=== PATIENT | female | born 1985 | race Caucasian/White ===

== ENCOUNTER → 2017-07-26 | Outpatient (CLI) | payer OTHER ==
[2017-07-26 10:08] LABS: Basophils % (A) 1 %; Eosinophils # (A) 0.1 k/uL (0-0.7); Eosinophils % (A) 2 %; HCT 44.5 % (34.0-46.0); HGB 14.8 gm/dL (11.4-16.0); Lymphocytes # (A) 1.8 k/uL (1.0-4.8); Lymphocytes % (A) 38 %; MCHC 33.3 g/dL (31.0-37.0); MCV 90.1 fL (80.0-100.0); Mean Platelet Volume 7.2; Monocytes # (A) 0.4 k/uL (0-1.0); Monocytes % (A) 9 %; Neutrophils # (A) 2.2 k/uL (1.3-7.7); Neutrophils % (A) 47 %; Platelet Count 174 k/uL (150-450); RBC 4.94 m/uL (3.80-5.40); RDW 12.8 % (11.5-15.5); WBC 4.7 k/uL (3.8-10.6)
[2017-07-26 10:19] LABS: Potassium 4.6 mmol/L (3.5-5.1)
== END | disposition home or self-care (01) ==
LOC: LABWHC1 09:40
PROVIDERS: ATTEND Orthopaedic Surgery
DX: Z01.812 Encounter for preprocedural laboratory examination (principal); M23.92 Unspecified internal derangement of left knee
CPT/HCPCS: 36415; 80051; 85025

== ENCOUNTER 2017-08-05 10:35 | Day surgery (SDC) | payer BC, OTHER ==
[2017-08-03 10:45] VITALS: BMI 46.5
--- NOTE | 2017-08-04 16:52 | HP ---
HISTORY AND PHYSICAL REASON FOR ADMISSION: Surgery scheduled for 08/05/17 HISTORY OF PRESENT ILLNESS: Maria C Waggoner is a 32-year-old patient seen with progressive left knee pain. Treatment options were discussed. She elected to proceed with arthroscopy. Consent was obtained. PAST MEDICAL HISTORY: Factor V Leiden. PAST SURGICAL HISTORY: Appendectomy, section, IVC filter placement and removal. MEDICATIONS ARE: Xarelto. SOCIAL HISTORY: She denies current tobacco use. PHYSICAL EXAMINATION: Evaluation of left knee range of motion 0-125 degrees. There is a mild effusion. Tenderness medial joint line. Positive medial Rachel's. Ligaments stable. Hip rotation without pain. Distal neurovascular exam intact. Left knee radiographs reveal mild osteoarthritis, left knee. MRI failed to reveal any obvious osseous or soft tissue abnormality. IMPRESSION: 1. Internal derangement of left knee with medial meniscal tear. 2. History of factor V Leiden. PLAN: Left knee arthroscopy with partial meniscectomy and debridement. Surgery is scheduled for 08/05/2017. MMODL / IJN: [id number] /
[~2017-08-05 10:35] MED LIST: DEXAMETHASONE SOD PHOSPHATE 10 MG/ML 1 ML VIAL IV ONE; LACTATED RINGERS 1,000 ML IV SCH; LIDOCAINE 1% 20 ML VIAL (10MG/ML) FOR IV START INTRADERMA PRN; MIDAZOLAM 2 MG/2 ML VIAL IV PRN; ONDANSETRON 4 MG/2 ML VIAL IVP ONE; SCOPOLAMINE 1.5MG/72HR PATCH TRANSDERM ONE; ceFAZolin IN SWFI 2 GM/20 ML SYRINGE IVP ONE
[2017-08-05 10:55] VITALS: RESP 16
[2017-08-05] MEDS ORDERED: MIDAZOLAM 2 MG/2 ML VIAL ONE (11:20)
[2017-08-05] MEDS ORDERED: SUCCINYLCHOLINE CHLORIDE VIAL 200 MG/10 ML VIAL IV ONE (11:20)
[2017-08-05] MEDS ORDERED: LIDOCAINE 1% INJ 10MG/ML (20 ML MDV) ONE (11:20)
[2017-08-05] MEDS ORDERED: fentaNYL (PF) 50 MCG/ML 2 ML AMP ONE (11:20)
[2017-08-05] MEDS ORDERED: PROPOFOL 10 MG/ML 20 ML VIAL IV ONE (11:20)
[2017-08-05] MEDS ORDERED: BUPIVACAINE (PF) 0.25% 30 ML VIAL SQ ONE (11:43)
--- NOTE | 2017-08-05 12:19 | P.OP ---
Date of Procedure: 08/05/17 Preoperative Diagnosis: Internal derangement left knee Postoperative Diagnosis: 1. Tear medial meniscus left knee 2. Grade 1 chondromalacia medial femoral condyle left knee 3. Medial plica left knee 4. Reactive synovitis medial and suprapatellar compartments left knee Procedure(s) Performed: 1. Arthroscopic partial medial meniscectomy left knee 2. Arthroscopic chondroplasty medial femoral condyle left knee 3. Arthroscopic resection medial plica left knee 4. Arthroscopic partial synovectomy medial and suprapatellar compartments left knee Anesthesia: JYOTIA, local Surgeon: Trevor Flor Estimated Blood Loss (ml): 5 Pathology: none sent Condition: stable Disposition: PACU Indications for Procedure: 32-year-old patient seen with progressive left knee pain. After treatment options were discussed, she elected to proceed with arthroscopy. Operative Findings: See description of procedure Description of Procedure: Patient was taken to the operative suite. Patient underwent a general anesthetic by the department of anesthesia. Patient was given preoperative antibiotics. The left lower extremity was placed in a well-padded arthroscopic leg fall. The left leg was prepped and draped in the normal sterile orthopedic fashion. A lateral parapatellar and suprapatellar incision was made. Trochars were inserted. Arthroscopy was initiated. Suprapatellar pouch revealed diffuse thick reactive synovitis. The patellofemoral joint appeared to articulate congruently. There was no significant chondromalacia identified. The scope was guided into the medial gutter. There was a plica which impinged along the medial femoral condyle with range of motion. No loose bodies. The scope was then guided into the medial compartment. A medial parapatellar incision was made. Trocar inserted followed by probe. There was a radial tear involving the posterior horn medial meniscus. There was an area of grade 1 chondromalacia along the anterior aspect medial femoral condyle was a small osteochondral tears present. There was reactive synovitis anteriorly. I performed a partial medial meniscectomy down to stable tissue. A chondroplasty of the medial femoral condyle was performed on a stable tissue followed by partial synovectomy. The residual meniscus and osteochondral surface were stable. Scope and probe were then guided into the intercondylar notch. Cruciates were identified, probed and found to be stable. The scope and probe were then guided into lateral compartment. Lateral meniscus appeared intact with no evidence for meniscal tear. There was no chondromalacia or osteochondral issues into lateral compartment. There was no reactive synovitis or loose bodies present. The scope was in guided back into the suprapatellar compartment. I introduced a motorized shaver into the super patellar compartment. I guided that into the medial gutter and resected that medial plica. I performed a partial synovectomy. Shaver was removed. The knee was taken through full range of motion with complete resection of plica noted. There was good decompression reactive synovitis. I took one more look on the entire knee - no residual debris. Instruments were now removed from the joint. The joint was infiltrated with .25% Marcaine. Steri-Strips were applied to the portal sites. Sterile dressings were applied. The patient was placed into a MANUELITO hose. No tourniquet was utilized. The patient was awakened, transferred to a bed and taken to recovery stable satisfactory condition.
[2017-08-05] MEDS ORDERED: MEPERIDINE 50 MG/ML SYRINGE IVP ONE ×2 (12:20→12:41)
[2017-08-05 12:34] VITALS: TEMP 98
[2017-08-05] MEDS: MORPHINE SULFATE 2 MG/ML SYRINGE IV PRN ×4 (12:45→13:00)
[2017-08-05] MEDS ORDERED: LACTATED RINGERS 1,000 ML IV ONE ×2 (12:52)
[2017-08-05] MEDS ORDERED: KETOROLAC 30 MG/ML 1 ML VIAL IVP ONE (13:07)
[2017-08-05] MEDS ORDERED: HYDROcodone/APAP 5-325MG 1 EACH TAB PO ONE (13:45)
[2017-08-05 15:17] VITALS: BP 96/58; PULSE 64
== END 2017-08-05 15:40 | disposition home or self-care (01) ==
LOC: OR 10:35
PROVIDERS: ATTEND Orthopaedic Surgery
DX: M23.322 Other meniscus derangements, posterior horn of medial meniscus, left knee (principal); M94.262 Chondromalacia, left knee; M67.52 Plica syndrome, left knee; M65.862 Other synovitis and tenosynovitis, left lower leg; D68.51 Activated protein C resistance; E66.01 Morbid (severe) obesity due to excess calories; Z68.42 Body mass index [BMI] 45.0-49.9, adult; Z79.01 Long term (current) use of anticoagulants
CPT/HCPCS: 81025; 29881; J2250; J0330; J1100; J2175; J2405; J2001; J3010; J1885; J2270; J2704; J0690

== ENCOUNTER → 2018-07-15 | Outpatient (CLI) | payer BC ==
[2018-07-15 11:09] LABS: HCT 42.6 % (34.0-46.0); HGB 14.4 gm/dL (11.4-16.0); MCH 30.2 pg (25.0-35.0); MCHC 33.9 g/dL (31.0-37.0); MCV 89.2 fL (80.0-100.0); Platelet Count 162 k/uL (150-450); RBC 4.77 m/uL (3.80-5.40); RDW 13.1 % (11.5-15.5); WBC 4.5 k/uL (3.8-10.6)
[2018-07-15 11:39] LABS: INR 0.9 (<1.2); Partial Thromboplastin Time 23.4 sec (22.0-30.0); Prothrombin Time 10.2 sec (9.0-12.0)
[2018-07-15 18:18] LABS: Iron Saturation 35.37 (12.00-45.00); Vitamin D 25 Hydroxy 12.7 ng/mL (30.0-100.0)
[2018-07-15 19:21] LABS: Parathyroid Hormone Intact 87.3 pg/mL (14.0-72.0)
[2018-07-15 19:42] LABS: Albumin/Globulin Ratio 1.67 (1.60-3.17); Anion Gap 7.2 mmol/L (4.00-12.00); Calcium 9.1 mg/dL (8.7-10.3); Carbon Dioxide 27.8 mmol/L (21.6-31.8); Globulin 2.4 g/dL (1.6-3.3); LDL Cholesterol,Calculated 107.8 mg/dL (0.0-131.0); Magnesium 1.9 mg/dL (1.5-2.4); Phosphorus 3.1 mg/dL (2.4-5.1); Total Bilirubin 0.9 mg/dL (0.3-1.2); Total Protein 6.4 g/dL (6.2-8.2); VLDL Calculation 38.2 mg/dL (5.00-40.00)
[2018-07-15 22:55] LABS: Hemoglobin A1C 5.1 % (4.0-6.0)
[2018-07-19 06:26] LABS: Vit B1(Thiamine) 55 ug/L (38-122)
[2018-07-19 08:28] LABS: Zinc, Serum 82 ug/dL (60-130)
[2018-07-19 09:45] LABS: Vitamin A 35 ug/dL (38-106)
[2018-07-19 23:17] LABS: Selenium 136 mcg/L (63-160)
== END | disposition home or self-care (01) ==
LOC: LABWHC1 09:29
PROVIDERS: ATTEND Surgery Plastic and Reconstructive Surgery
DX: E21.1 Secondary hyperparathyroidism, not elsewhere classified (principal); E66.01 Morbid (severe) obesity due to excess calories; D50.9 Iron deficiency anemia, unspecified; E44.0 Moderate protein-calorie malnutrition; E55.9 Vitamin D deficiency, unspecified; K74.1 Hepatic sclerosis; N19 Unspecified kidney failure; K50.90 Crohn's disease, unspecified, without complications
CPT/HCPCS: 36415; 80053; 80061; 82306; 82525; 82607; 82728; 82746; 83036; 83540; 83550; 83735; 83970; 84100; 84134; 84255; 84425; 84443; 84590; 84630; 85027; 85610; 85730; 93005

== ENCOUNTER → 2018-09-08 | Outpatient (CLI) | payer BC ==
--- NOTE | 2018-09-08 09:00 | P.HPBAR ---
Bariatric H&P - History & Physicial H&P Date: 09/08/18 History & Physicial: Visit/CC: Patient initial contact: Initial weight: Initial weight in pounds: Height: Initial BMI: Last weight: Current weight: Current weight in pounds: Current BMI: [place] body weight (based on NIH guidelines): Excess body weight loss: The patient is a 33 year-old F who presents for Bariatric Assessment. HPI: She reports 3 blood clots following her and prolonged bedrest. She reports superficial thrombophlebitis at least twice. She also reports a DVT blood clot. She has an IVF filter that is now removed. She is on Xarelto. Family history of gallbladder disease. She had a knee surgery that went very well less than 2 years ago. She has heartburn and has elevated liver enzymes. She has factor V leiden and is on Xarelto. ABDOMEN: No upper abdominal scars ASSESSMENT: 1. Morbid obesity 2. Gallbladder disorder 3. Fatty liver PLAN: 1. Labs completed. 2. Will need US of the gallbladder for possible cholecystectomy 3. Psych clearance 4. Vitamin D, A are low. Supplement started 5. PTH also elevated. Start calcium 6. EKG 7. Need Service Engineer follow up for Factor V leiden Past Medical History Past Medical History: Deep Vein Thrombosis (DVT) Additional Past Medical History / Comment(s): Factor 5 disorder History of Any Multi-Drug Resistant Organisms: None Reported Past Surgical History: Appendectomy, Section, Tubal Ligation Additional Past Surgical History / Comment(s): section x 2. [place] teeth removed. Past Anesthesia/Blood Transfusion Reactions: No Reported Reaction Smoking Status: Former smoker - Past Family History Mother Family Medical History: Diabetes Mellitus, Thyroid Disorder Bariatric Checklist Checklist: Plan: Checklist: EGD: 1. Hiatal hernia: 2. H. Pylori: HgbA1c: Vitamin D: Smoking: Former smoker Primary care physician referral: Psychiatry clearance: Cardiology clearance: Sleep study: Diet journal: VTE risk score: VTE risk level: Rehab needs at discharge:
[2018-09-08 09:01] VITALS: BP 123/62; PULSE 59; TEMP 97.2; BMI 49.1
== END | disposition home or self-care (01) ==
LOC: BARWHC3 08:37
PROVIDERS: ATTEND Surgery Plastic and Reconstructive Surgery
DX: E66.01 Morbid (severe) obesity due to excess calories (principal); K82.9 Disease of gallbladder, unspecified; K76.0 Fatty (change of) liver, not elsewhere classified; I82.409 Acute embolism and thrombosis of unspecified deep veins of unspecified lower extremity; D68.2 Hereditary deficiency of other clotting factors; R12 Heartburn; R79.89 Other specified abnormal findings of blood chemistry; Z79.01 Long term (current) use of anticoagulants; Z90.89 Acquired absence of other organs; Z98.890 Other specified postprocedural states; Z87.891 Personal history of nicotine dependence; Z83.79 Family history of other diseases of the digestive system; Z68.42 Body mass index [BMI] 45.0-49.9, adult
CPT/HCPCS: 99211

== ENCOUNTER → 2018-09-26 | Outpatient (CLI) | payer BC ==
--- NOTE | 2018-09-26 13:42 | US ---
EXAMINATION TYPE: US gallbladder DATE OF EXAM: 09/26/2018 COMPARISON: 01/06/2016 CLINICAL HISTORY: 33-year-old female R94.5 Abnormal liver function test. Abnormal labs. No pain. Pa tient states having a hx of fatty liver. TECHNIQUE: Multiple sonographic images of the right upper quadrant were obtained. FINDINGS: EXAM MEASUREMENTS: Liver Length: 15.1 cm Gallbladder Wall: 0.2 cm CBD: 6.4 mm CHD: 5.5 mm Right Kidney: 10.6 x 5.3 x 6.1 cm Suboptimal visualization due to patient body habitus Pancreas: wnl Liver: Appears coarse in echotexture. Gallbladder: wnl Evidence for sonographic Matute's sign: neg CBD: upper limits of normal in size CHD: upper limits of normal in size Right Kidney: wnl IMPRESSION: 1. Coarsened appearance to the liver suggests underlying nonspecific hepatocellular disease. 2. Bile duct borderline dilated measuring up to 6.4 mm. Correlate with alkaline phosphatase and bilir ubin levels.
== END | disposition home or self-care (01) ==
LOC: RADUSWWP 10:46
PROVIDERS: ATTEND Surgery Plastic and Reconstructive Surgery
DX: K83.8 Other specified diseases of biliary tract (principal); R94.5 Abnormal results of liver function studies
CPT/HCPCS: 76705

== ENCOUNTER → 2018-10-17 | Outpatient (CLI) | payer BC ==
[2018-10-17 13:58] VITALS: BMI 50.1
== END | disposition home or self-care (01) ==
LOC: BARWHC3 08:32
PROVIDERS: ATTEND Surgery Plastic and Reconstructive Surgery
DX: E66.01 Morbid (severe) obesity due to excess calories (principal); Z68.43 Body mass index [BMI] 50.0-59.9, adult
CPT/HCPCS: 97804

== ENCOUNTER 2018-11-07 09:58 | Day surgery (SDC) | payer BC ==
[2018-11-03 10:19] VITALS: BMI 50.2
--- NOTE | 2018-11-06 18:21 | P.GSHP ---
History of Present Illness H&P Date: 11/07/18 CHIEF COMPLAINT: GERD HISTORY OF PRESENT ILLNESS: The patient is a 33-year-old female who presents reports gastroesophageal reflux disease. Upper endoscopy was offered for further evaluation and management. PAST MEDICAL HISTORY: Please see list. PAST SURGICAL HISTORY: Please see list. MEDICATIONS: Please see list. ALLERGIES: Please see list. SOCIAL HISTORY: No illicit drug use FAMILY HISTORY: No reports of Crohn disease or ulcerative colitis. REVIEW OF ORGAN SYSTEMS: CONSTITUTIONAL: No reports of fevers or chills. GI: Denies any blood in stools or constipation. PHYSICAL EXAM: VITAL SIGNS: Stable GENERAL: Well-developed and pleasant in no acute distress. HEENT: No scleral icterus. Extraocular movements grossly intact. Moist buccal mucosa. NECK: Supple without lymphadenopathy. CHEST: Unlabored respirations. Equal bilateral excursions. CARDIOVASCULAR: Regular rate and rhythm. Distal 2+ pulses. ABDOMEN: Soft, nondistended. MUSCULOSKELETAL: No clubbing, cyanosis, or edema. ASSESSMENT: 1. Gastroesophageal reflux disease PLAN: 1. Recommend proceeding with an upper endoscopy Past Medical History Past Medical History: Deep Vein Thrombosis (DVT) Additional Past Medical History / Comment(s): Factor 5 disorder, Hx of blood clots in legs and arms., fatty liver, back pain, takes spironolactone for facial hair growth., pre-cancerous uterine cells? History of Any Multi-Drug Resistant Organisms: None Reported Past Surgical History: Appendectomy, Section, Tubal Ligation Additional Past Surgical History / Comment(s): section x 2. [place] teeth , insertion of a filter behind her knee for blood clots and then removed., states procedure to remove clots afterwards through her neck. Past Anesthesia/Blood Transfusion Reactions: No Reported Reaction, Family History of Problems w/ Anesthesia Additional Past Anesthesia/Blood Transfusion Reaction / Comment(s): mother=ponv Past Psychological History: Anxiety, Depression Additional Psychological History / Comment(s): states no meds. Smoking Status: Former smoker Past Alcohol Use History: Occasional Additional Past Alcohol Use History / Comment(s): smoking history during teenage years Past Drug Use History: None Reported - Past Family History Mother Family Medical History: Diabetes Mellitus, Thyroid Disorder Additional Family Medical History / Comment(s): factor 5 Medications and Allergies Home Medications Medication Instructions Recorded Confirmed Type Rivaroxaban [Xarelto] 20 mg PO DAILY 08/03/17 11/03/18 History Spironolactone [Aldactone] 25 mg PO DAILY 09/08/18 11/03/18 History Vitamin A Acetate [Vitamin A] 20,000 unit PO DAILY 09/08/18 11/03/18 History Ergocalciferol [Vitamin D2] 50,000 unit PO Q7D 10/17/18 11/03/18 History Allergies Allergy/AdvReac Type Severity Reaction Status Date / Time No Known Allergies Allergy Verified 11/03/18 09:54
[~2018-11-07 09:58] MED LIST changes: -DEXAMETHASONE SOD PHOSPHATE 10 MG/ML 1 ML VIAL IV ONE; -LIDOCAINE 1% 20 ML VIAL (10MG/ML) FOR IV START INTRADERMA PRN; -MIDAZOLAM 2 MG/2 ML VIAL IV PRN; -ONDANSETRON 4 MG/2 ML VIAL IVP ONE; -SCOPOLAMINE 1.5MG/72HR PATCH TRANSDERM ONE; -ceFAZolin IN SWFI 2 GM/20 ML SYRINGE IVP ONE
[2018-11-07 10:25] VITALS: TEMP 98.6
[2018-11-07] MEDS ORDERED: LIDOCAINE 1% INJ 10MG/ML (20 ML MDV) ONE (11:15)
[2018-11-07] MEDS ORDERED: MIDAZOLAM 2 MG/2 ML VIAL ONE (11:15)
[2018-11-07] MEDS ORDERED: KETAMINE 10 MG/ML 20 ML VIAL ONE (11:15)
[2018-11-07] MEDS ORDERED: PROPOFOL 10 MG/ML 20 ML VIAL IV ONE (11:15)
--- NOTE | 2018-11-07 11:36 | P.PCN ---
Date of Procedure: 11/07/18 Description of Procedure: PREOPERATIVE DIAGNOSIS: Gastroesophageal reflux disease. Morbid obesity. POSTOPERATIVE DIAGNOSIS: Morbid obesity. Gastritis. Gastroesophageal reflux disease. Diaphragmatic hiatal hernia OPERATION: Esophagogastroduodenoscopy with biopsies along antrum. SURGEON: Zeinab Myers MD ANESTHESIA: MAC. INDICATIONS: The patient is a 33-year-old female who presents with a history of reflux disease. Benefits and risks of the procedure were described. Informed consent was obtained. DESCRIPTION: The patient was brought into the endoscopy suite and laid in the left lateral decubitus position. An Olympus gastroscope was passed along the posterior oropharynx down to the distal esophagus where the squamocolumnar junction was encountered at 36 cm from the incisors. The stomach was entered and no bile reflux was found. Additional findings are listed below. Biopsies with cold f orceps were obtained of the antrum. The first through third portion of the duodenum was examined and unremarkable. Retroflexion of the scope confirmed Hill grade 4 lower esophageal valve. The squamocolumnar junction demonstrated LA grade C erosive esophagitis. The stomach was desufflated. The patient tolerated the procedure well. FINDINGS: Squamocolumnar junction 36 cm from the incisors. Diaphragmatic hiatus at 40 cm. Hiatal hernia, 4 cm Hill grade 4 lower esophageal valve. LA grade C erosive esophagitis. No active duodenitis. Chronic gastritis RECOMMENDATIONS: Upper endoscopy as needed. Plan - Discharge Summary New Discharge Prescriptions: No Action Rivaroxaban [Xarelto] 20 mg PO DAILY Spironolactone [Aldactone] 25 mg PO DAILY Vitamin A Acetate [Vitamin A] 20,000 unit PO DAILY Ergocalciferol [Vitamin D2] 50,000 unit PO Q7D Discharge Medication List Rivaroxaban [Xarelto] 20 mg PO DAILY 08/03/17 [History] Spironolactone [Aldactone] 25 mg PO DAILY 09/08/18 [History] Vitamin A Acetate [Vitamin A] 20,000 unit PO DAILY 09/08/18 [History] Ergocalciferol [Vitamin D2] 50,000 unit PO Q7D 10/17/18 [History] Follow up Appointment(s)/Referral(s): [facility] [[facility]-STAFF] - 12/07/18 Patient Instructions/Handouts: Hiatal Hernia (DC), Gastroesophageal Reflux Disease (DC) Discharge Disposition: HOME SELF-CARE
[2018-11-07 11:41] VITALS: RESP 16
[2018-11-07 11:44] VITALS: BP 98/67; PULSE 74
== END 2018-11-07 11:53 | disposition home or self-care (01) ==
LOC: ORWHC2ENDO 09:58
PROVIDERS: ATTEND Surgery Plastic and Reconstructive Surgery
DX: K21.0 Gastro-esophageal reflux disease with esophagitis (principal); K29.50 Unspecified chronic gastritis without bleeding; K44.9 Diaphragmatic hernia without obstruction or gangrene; E66.01 Morbid (severe) obesity due to excess calories; Z68.43 Body mass index [BMI] 50.0-59.9, adult; D68.51 Activated protein C resistance; K76.0 Fatty (change of) liver, not elsewhere classified; M54.9 Dorsalgia, unspecified; Z87.891 Personal history of nicotine dependence; Z86.718 Personal history of other venous thrombosis and embolism; Z86.711 Personal history of pulmonary embolism; Z79.01 Long term (current) use of anticoagulants; Z79.899 Other long term (current) drug therapy; Z98.51 Tubal ligation status; Z83.3 Family history of diabetes mellitus; Z83.49 Family history of other endocrine, nutritional and metabolic diseases
CPT/HCPCS: 43239; 81025; 88305; J2250; J2001; J2704

== ENCOUNTER 2018-11-14 05:29 | Emergency (ER) | payer BC ==
[2018-11-14 05:35] VITALS: BP 99/77; PULSE 73; RESP 20; TEMP 97.9
--- NOTE | 2018-11-14 05:38 | ED ---
ENT HPI - General Chief complaint: ENT Stated complaint: Lt Ear/Jaw Pain Source: patient Mode of arrival: ambulatory Limitations: no limitations - History of Present Illness Initial comments: Maria C is a 33 yo female who presents to the ER for evaluation of sudden onset of stabbing pain in her left ear. Patient reports she woke with pain in her ear, she initially thought she had slept wrong so she tried to roll over but pain persisted so she came to the ER for evaluation. She denies fevers/chills or hearing loss. She denies history of ear infection in the past. MD complaint: ear pain -: hour(s) Location: L ear Severity: severe Severity scale (1-10): 10 Quality: sharp Consistency: constant Improves with: none Worsens with: position - Related Data Home Medications Medication Instructions Recorded Confirmed Rivaroxaban [Xarelto] 20 mg PO DAILY 08/03/17 11/07/18 Spironolactone [Aldactone] 25 mg PO DAILY 09/08/18 11/03/18 Omeprazole 20 mg PO 11/14/18 11/14/18 Previous Rx's Medication Instructions Recorded Amoxicillin 875 mg PO Q12HR #14 tablet 11/14/18 Allergies Allergy/AdvReac Type Severity Reaction Status Date / Time No Known Allergies Allergy Verified 11/07/18 10:26 Review of Systems ROS Statement: Those systems with pertinent positive or pertinent negative responses have been documented in the HPI. ROS Other: All systems not noted in ROS Statement are negative. Past Medical History Past Medical History: Deep Vein Thrombosis (DVT) Additional Past Medical History / Comment(s): Factor 5 disorder History of Any Multi-Drug Resistant Organisms: None Reported Past Surgical History: Appendectomy, Section, Tubal Ligation Additional Past Surgical History / Comment(s): section x 2. [place] teeth removed. Past Anesthesia/Blood Transfusion Reactions: No Reported Reaction Past Psychological History: No Psychological Hx Reported Smoking Status: Former smoker Past Alcohol Use History: Occasional Past Drug Use History: None Reported - Past Family History Mother Family Medical History: Diabetes Mellitus, Thyroid Disorder General Exam Limitations: no limitations General appearance: alert, in no apparent distress Head exam: Present: atraumatic, normocephalic Eye exam: Present: PERRL ENT exam: Present: normal oropharynx Expanded TM/Canal exam: Erythema: Left TM, Bulging: Left TM, Effusion: Left TM Respiratory exam: Absent: respiratory distress Cardiovascular Exam: Present: regular rate GI/Abdominal exam: Absent: distended Rectal exam: Present: deferred Extremities exam: Present: full ROM Neurological exam: Present: alert, oriented X3 Psychiatric exam: Present: normal affect Skin exam: Present: warm, dry Course Vital Signs 11/14/18 11/14/18 05:32 07:12 Temperature 97.9 F 97.9 F Pulse Rate 73 73 Respiratory 20 20 Rate Blood Pressure 99/77 99/77 O2 Sat by Pulse 99 99 Oximetry Medical Decision Making - Medical Decision Making Patient was seen and evaluated, history and physical exam consistent with acute left otits media Amoxicillin prescription given Supportive care discussed, patient discharged home in stable condition. Disposition Clinical Impression: Otitis media Disposition: HOME SELF-CARE Condition: Stable Instructions (If sedation given, give patient instructions): Ear Infection (ED) Prescriptions: Amoxicillin 875 mg PO Q12HR #14 tablet Is patient prescribed a controlled substance at d/c from ED?: No Referrals: nAay Del Real MD [Primary Care Provider] - 1-2 days
[2018-11-14] MEDS ORDERED: AMOXICILLIN 875 MG TAB PO STA (06:21)
== END 2018-11-14 07:12 | disposition home or self-care (01) ==
LOC: EC 05:29
DX: H66.92 Otitis media, unspecified, left ear (principal); Z86.718 Personal history of other venous thrombosis and embolism; Z87.891 Personal history of nicotine dependence; Z79.01 Long term (current) use of anticoagulants; Z79.899 Other long term (current) drug therapy
CPT/HCPCS: 99283

== ENCOUNTER → 2018-12-07 | Outpatient (CLI) | payer BC ==
[2018-12-07 14:37] VITALS: BP 109/91; PULSE 91; TEMP 98.2; BMI 49.2
--- NOTE | 2018-12-07 15:31 | P.PN ---
Subjective Progress Note Date: 12/07/18 DATE OF SERVICE: 12/07/2018 CHIEF COMPLAINT: Morbid obesity HISTORY OF PRESENT ILLNESS: Maria C Waggoner is a 33-year-old female who comes with lifelong morbid obesity. She comes in looking into the sleeve gastrectomy. She has heartburn and has elevated liver enzymes. She has factor V leiden and is on Xarelto. She has a family history of morbid obesity. She has tried caloric restriction with minimal weight loss. She reports resolution of reflux with omeprazole following her upper endoscopy. She denies any fatty food intolerance. At height of 5 feet 5 inches, her ideal body weight is 149 pounds. She comes in 295 pounds from 294 pounds, 3 months ago. She has gained 1 pound in 3 months. Her body mass index is 49.3. She is 146 pounds overweight. PAST MEDICAL HISTORY: 1. Morbid obesity due to excess calories 2. Body mass index of 49.1, initial 3. Osteoarthritis of the knees. 4. Osteoarthritis of the lower back. 5. Factor V Leiden 6. Gastroesophageal reflux disease 7. DVT extremity 8. Hypertensive heart disease 9. Vitamin D deficiency PAST SURGICAL HISTORY: 1. Appendectomy 2. section 3. Tubal ligation HOME MEDICATIONS: ALLERGIES: Medications and Allergies Home Medications Medication Instructions Recorded Confirmed Type Rivaroxaban [Xarelto] 20 mg PO DAILY 08/03/17 10/17/18 History Spironolactone [Aldactone] 25 mg PO DAILY 09/08/18 10/17/18 History Vitamin A Acetate [Vitamin A] 20,000 unit PO DAILY 09/08/18 10/17/18 History Ergocalciferol [Vitamin D2] 50,000 unit PO Q7D 10/17/18 10/17/18 History Allergies Allergy/AdvReac Type Severity Reaction Status Date / Time No Known Allergies Allergy Verified 10/17/18 10:54 SOCIAL HISTORY: Past tobacco use. FAMILY HISTORY: No family history of ulcerative colitis disease or Crohn's disease. Family history of morbid obesity. No lupus in the family. No reports of stomach or esophageal cancer. REVIEW OF ORGAN SYSTEMS: CONSTITUTIONAL: At height of 5 feet 5 inches, her ideal body weight is 149 pounds. She comes in 294 pounds. Her body mass index is 49.1. She is 145 pounds overweight. HEENT: Denies any active troubles with vision or hearing. ENDOCRINE: No diabetes. No hypothyroidism. CARDIOVASCULAR: No past reports of palpitations or heart attacks or chest pain. Past blood clots. RESPIRATORY: No asthma. No sleep apnea. GASTROINTESTINAL: Denies any bright red blood per rectum. No diarrhea. No constipation. Has GERD. MUSCULOSKELETAL: Has lower back pain and joint pain. Has osteoarthritis of the knees. NEURO: No headaches. No seizure disorders. PSYCH: No depression. No suicidal ideation. RHEUMATOLOGIC: No lupus. No rheumatoid arthritis. HEMATOLOGIC: Denies any abnormal bleeding or bruising. Personal history of DVTs. On anticoagulant. SKIN: No rash. No skin cancer. PHYSICAL EXAM: VITAL SIGNS: Height 5 foot 5 inches, weight 295 pounds. BMI 49.3 Vital Signs Temp 98.2 F 12/07/18 14:33 Pulse 91 12/07/18 14:33 Resp BP 109/91 12/07/18 14:33 Pulse Ox GENERAL: Well-developed in no acute distress. HEENT: No scleral icterus. Extraocular movements grossly intact. Hears conversational speech. No nasal drainage. NECK: Supple without lymphadenopathy. CHEST: Nonlabored respirations with equal bilateral excursions. CARDIOVASCULAR: Regular rate and regular rhythm. Distal 2+ pulses. ABDOMEN: Obese, soft, nontender, nondistended. No upper abdominal scars MUSCULOSKELETAL: No clubbing, cyanosis. Gross strength 5/5 distal lower extremities. NEURO: No focal or lateralizing signs. Cranial nerves 2 through 12 grossly within normal limits. PSYCH: Appropriate affect. Alert and oriented to person, place and time. SKIN: Good skin turgor. Well perfused. STUDIES US of the gallbladder imaging independently reviewed demonstrating no large gallstones. Report of ultrasound confirms possible fatty liver disease MEDICAL REPORT: EGD FINDINGS: Squamocolumnar junction 36 cm from the incisors. Diaphragmatic hiatus at 40 cm. Hiatal hernia, 4 cm Hill grade 4 lower esophageal valve. LA grade C erosive esophagitis. No active duodenitis. Chronic gastritis Final Pathologic Diagnosis GASTRIC ANTRUM, BIOPSY: Essentially normal gastric mucosa. Helicobacter organisms are not identified on H+E stained sections. LABS: LFTs elevated. Vitamin A is low. Triglycerides is high. Vitamin D is low. PTH is elevated EKG: Sinus bradycarida ASSESSMENT: 1. Morbid obesity due to excess calories 2. Body mass index of 49.3 3. Osteoarthritis of the knees. 4. Osteoarthritis of the lower back. 5. Factor V Leiden 6. Gastroesophageal reflux disease 7. DVT extremity 8. Hypertensive heart disease 9. Vitamin D deficiency 10. Gallbladder disorder 11. Fatty liver disease 12. Hiatal hernia 13. Erosive esophagitis 14. Elevated liver enzymes 15. Secondary hyperparathyroidism 16. Vitamin D deficiency 17. Vitamin A deficiency PLAN: 1. Recommend additional studies for elevated liver enzymes and potential fatty liver disease. 2. Continue with omeprazole for gastroesophageal reflux disease. With her pre sent condition, sleeve gastrectomy may put her increased risk for worsening symptoms she demonstrated understanding. 3. Vitamin D supplement 10,000 units daily or 50,000 units weekly 4. Vitamin A supplement at least 8000 units daily 5. Recommend calcium supplement 1200 mg daily 6. Additional prescription omeprazole prescribed. Objective - Vital Signs Vital signs: Vital Signs Temp 98.2 F 12/07/18 14:33 Pulse 91 12/07/18 14:33 Resp BP 109/91 12/07/18 14:33 Pulse Ox Intake & Output 12/06/18 12/07/18 12/07/18 18:59 06:59 18:59 Weight 134.263 kg
== END | disposition home or self-care (01) ==
LOC: BARWHC3 13:52
PROVIDERS: ATTEND Surgery Plastic and Reconstructive Surgery
DX: E66.01 Morbid (severe) obesity due to excess calories (principal); M17.0 Bilateral primary osteoarthritis of knee; M47.9 Spondylosis, unspecified; D68.51 Activated protein C resistance; K21.9 Gastro-esophageal reflux disease without esophagitis; I82.409 Acute embolism and thrombosis of unspecified deep veins of unspecified lower extremity; I11.9 Hypertensive heart disease without heart failure; E55.9 Vitamin D deficiency, unspecified; K82.9 Disease of gallbladder, unspecified; K76.0 Fatty (change of) liver, not elsewhere classified; K44.9 Diaphragmatic hernia without obstruction or gangrene; K22.10 Ulcer of esophagus without bleeding; R74.8 Abnormal levels of other serum enzymes; E21.1 Secondary hyperparathyroidism, not elsewhere classified; E50.9 Vitamin A deficiency, unspecified; Z68.42 Body mass index [BMI] 45.0-49.9, adult; Z90.49 Acquired absence of other specified parts of digestive tract; Z79.01 Long term (current) use of anticoagulants; Z79.899 Other long term (current) drug therapy; Z87.891 Personal history of nicotine dependence; Z98.51 Tubal ligation status
CPT/HCPCS: 99211

== ENCOUNTER → 2018-12-26 | Outpatient (CLI) | payer BC ==
--- NOTE | 2018-12-26 13:24 | CT ---
EXAMINATION TYPE: CT abdomen pelvis w con DATE OF EXAM: 12/26/2018 COMPARISON: NONE HISTORY: 33 year old female Diverticulitis, right lower rib pain TECHNIQUE: Contiguous axial scanning of the abdomen and pelvis following administration of 100 ml Iso cruz 300 IV contrast. Delayed images through the kidneys and coronal/sagittal reconstructions perform ed. CT DLP: 4092.0 mGycm Automated exposure control for dose reduction was used. FINDINGS: Heart normal size without pericardial effusion. Lung bases clear without pleural effusion. Low attenuation the hepatic parenchyma without focal lesion. Portal venous system is patent. No bilia ry ductal dilatation. Gallbladder, adrenal glands, right kidney, and pancreas appear within normal limits. Subcentimeter hypodensity lateral cortex left kidney too small for accurate CT characterization, like ly tiny cysts. Spleen mildly enlarged at 15.9 cm on axial series. Borderline sized 1.4 cm portacaval lymph node. No other mesenteric or retroperitoneal lymphadenopathy seen. Oral contrast progressed to the upper descending colon. Scattered minimal stool. No pericolonic infla mmatory change. No dilated small bowel, free fluid, or free air. Retroaortic left renal vein. Bladder urine distended. Uterus is visualized with both ovaries. There is a 3.1 cm dominant follicle or functional cyst in the left ovary and 3.7 cm and the right ovary. No abnormal fluid collection in the pelvis or pelvic lymphadenopathy. Bones: Degenerative disc disease L5-S1. No osseous destructive process. IMPRESSION: 1. CORRELATE FOR HEPATIC STEATOSIS. 2. MILD SPLENOMEGALY (15.9 CM). 3. PHYSIOLOGIC CHANGES IN THE OVARIES WITH A DOMINANT FOLLICLE OR FUNCTIONAL CYST MEASURING UP TO 3.7 CM.
== END | disposition home or self-care (01) ==
LOC: RADCTMAIN 09:35
PROVIDERS: ATTEND Surgery Plastic and Reconstructive Surgery
DX: R16.1 Splenomegaly, not elsewhere classified (principal)
CPT/HCPCS: 74177; Q9967

== ENCOUNTER → 2019-02-01 | Outpatient (CLI) | payer BC ==
--- NOTE | 2019-02-01 18:11 | P.PN ---
Subjective Progress Note Date: 02/01/19 Patient had to leave.
== END | disposition home or self-care (01) ==
LOC: BARWHC3 16:04
PROVIDERS: ATTEND Surgery Plastic and Reconstructive Surgery
DX: Z53.9 Procedure and treatment not carried out, unspecified reason (principal)

== ENCOUNTER → 2019-03-24 | Outpatient (CLI) | payer BC | END | disposition home or self-care (01) | LOC: LABPAT 08:58 | PROVIDERS: ATTEND Surgery Plastic and Reconstructive Surgery | DX: Z53.9 Procedure and treatment not carried out, unspecified reason (principal) ==

== ENCOUNTER → 2019-03-29 | Outpatient (CLI) | payer BC ==
[2019-03-29 16:53] VITALS: BP 103/74; PULSE 94; RESP 16; TEMP 97.5; BMI 47.0
--- NOTE | 2019-03-29 17:25 | P.PN ---
Subjective Progress Note Date: 03/29/19 DATE OF SERVICE: 03/29/2019 CHIEF COMPLAINT: Morbid obesity HISTORY OF PRESENT ILLNESS: Maria C Waggoner is a 33-year-old female who comes with lifelong morbid obesity. She comes in looking into the sleeve gastrectomy. She has completed medically supervised weight loss. Despite pre-existing gastroesophageal reflux disease she is looking into the sleeve gastrectomy. She has has pre-existing liver disease. At height of 5 feet 5 inches, her ideal body weight is 149 pounds. She comes in 282 pounds from 295 pounds, 3 months ago. She has lost 13 pound in 3 months. Her body mass index is 47.1 from 49.3. She is 133 pounds overweight. PAST MEDICAL HISTORY: 1. Morbid obesity due to excess calories 2. Body mass index of 49.1, initial 3. Osteoarthritis of the knees. 4. Osteoarthritis of the lower back. 5. Factor V Leiden 6. Gastroesophageal reflux disease 7. DVT extremity 8. Hypertensive heart disease 9. Vitamin D deficiency PAST SURGICAL HISTORY: 1. Appendectomy 2. section 3. Tubal ligation HOME MEDICATIONS: ALLERGIES: Medications and Allergies Home Medications Medication Instructions Recorded Confirmed Type Rivaroxaban [Xarelto] 20 mg PO DAILY 08/03/17 10/17/18 History Spironolactone [Aldactone] 25 mg PO DAILY 09/08/18 10/17/18 History Vitamin A Acetate [Vitamin A] 20,000 unit PO DAILY 09/08/18 10/17/18 History Ergocalciferol [Vitamin D2] 50,000 unit PO Q7D 10/17/18 10/17/18 History Allergies Allergy/AdvReac Type Severity Reaction Status Date / Time No Known Allergies Allergy Verified 10/17/18 10:54 SOCIAL HISTORY: Past tobacco use. FAMILY HISTORY: No family history of ulcerative colitis disease or Crohn's disease. Family history of morbid obesity. No lupus in the family. No reports of stomach or esophageal cancer. REVIEW OF ORGAN SYSTEMS: CONSTITUTIONAL: At height of 5 feet 5 inches, her ideal body weight is 149 pounds. She was 295 pounds. Her body mass index is 49.2. HEENT: Denies any active troubles with vision or hearing. ENDOCRINE: No diabetes. No hypothyroidism. CARDIOVASCULAR: No past reports of palpitations or heart attacks or chest pain. Past blood clots. RESPIRATORY: No asthma. No sleep apnea. GASTROINTESTINAL: Denies any bright red blood per rectum. No diarrhea. No constipation. Has GERD. MUSCULOSKELETAL: Has lower back pain and joint pain. Has osteoarthritis of the knees. NEURO: No headaches. No seizure disorders. PSYCH: No depression. No suicidal ideation. RHEUMATOLOGIC: No lupus. No rheumatoid arthritis. HEMATOLOGIC: Denies any abnormal bleeding or bruising. Personal history of DVTs. On anticoagulant. SKIN: No rash. No skin cancer. PHYSICAL EXAM: VITAL SIGNS: Height 5 foot 5 inches, weight 282 pounds. BMI 47.1 Vital Signs Temp 97.5 F L 03/29/19 16:51 Pulse 94 03/29/19 16:51 Resp 16 03/29/19 16:51 BP 103/74 03/29/19 16:51 Pulse Ox GENERAL: Well-developed in no acute distress. HEENT: No scleral icterus. Extraocular movements grossly intact. Hears conversational speech. No nasal drainage. NECK: Supple without lymphadenopathy. CHEST: Nonlabored respirations with equal bilateral excursions. CARDIOVASCULAR: Regular rate and regular rhythm. Distal 2+ pulses. ABDOMEN: Obese, soft, nontender, nondistended. No upper abdominal scars MUSCULOSKELETAL: No clubbing, cyanosis. Gross strength 5/5 distal lower extremities. NEURO: No focal or lateralizing signs. Cranial nerves 2 through 12 grossly within normal limits. PSYCH: Appropriate affect. Alert and oriented to person, place and time. SKIN: Good skin turgor. Well perfused. ASSESSMENT: 1. Morbid obesity due to excess calories 2. Body mass index of 49.3 3. Osteoarthritis of the knees. 4. Osteoarthritis of the lower back. 5. Factor V Leiden 6. Gastroesophageal reflux disease 7. DVT extremity 8. Hypertensive heart disease 9. Vitamin D deficiency 10. Gallbladder disorder 11. Fatty liver disease 12. Hiatal hernia 13. Erosive esophagitis 14. Elevated liver enzymes 15. Secondary hyperparathyroidism 16. Vitamin D deficiency 17. Vitamin A deficiency PLAN: 1. Bariatric options between a sleeve, band and a Conchita-en-Y gastric bypass were reviewed in detail. The patient elected for a sleeve gastrectomy. Robotic assisted approach described. 2. The [place] [facility] Data was also reviewed with benefits and risks as described. 3. An 8 page second-generation bariatric consent form was reviewed in detail including potential of bleeding, infection, leaks, adequate weight loss, nutritional deficiencies which the patient demonstrated understanding of the risks. 4. A 2 week high-protein low caloric 800 kcal diet described to address hepatomegaly. 5. Preoperative labs including complete metabolic panel and CBC with type and screen recommended. 6. DVT prophylaxis per [place] [facility]. 7. Antibiotic prophylaxis. 8. Inpatient hospitalization anticipated for more than 2 nights. 9. All questions and concerns were addressed with the patient. 10. Recommend blood thinner compa-operatively. 11. She is elevated risks for complications with personal history of blood clots. Objective - Vital Signs Vital signs: Vital Signs Temp 97.5 F L 03/29/19 16:51 Pulse 94 03/29/19 16:51 Resp 16 03/29/19 16:51 BP 103/74 03/29/19 16:51 Pulse Ox Intake & Output 03/28/19 03/29/19 03/29/19 18:59 06:59 18:59 Weight 128.367 kg
== END | disposition home or self-care (01) ==
LOC: BARWHC3 15:56
PROVIDERS: ATTEND Surgery Plastic and Reconstructive Surgery
DX: E66.01 Morbid (severe) obesity due to excess calories (principal); M17.0 Bilateral primary osteoarthritis of knee; D68.51 Activated protein C resistance; K21.9 Gastro-esophageal reflux disease without esophagitis; E55.9 Vitamin D deficiency, unspecified; K82.9 Disease of gallbladder, unspecified; K44.9 Diaphragmatic hernia without obstruction or gangrene; K76.0 Fatty (change of) liver, not elsewhere classified; K22.10 Ulcer of esophagus without bleeding; N25.81 Secondary hyperparathyroidism of renal origin; E50.9 Vitamin A deficiency, unspecified; I11.9 Hypertensive heart disease without heart failure; I82.409 Acute embolism and thrombosis of unspecified deep veins of unspecified lower extremity; Z68.42 Body mass index [BMI] 45.0-49.9, adult; Z87.891 Personal history of nicotine dependence; Z79.899 Other long term (current) drug therapy
CPT/HCPCS: 99211

== ENCOUNTER 2019-04-03 08:00 | Inpatient (IN) | payer BC ==
[2019-03-24 10:07] LABS: Basophils % (A) 1 %; Eosinophils # (A) 0.1 k/uL (0-0.7); Eosinophils % (A) 3 %; HCT 43.8 % (34.0-46.0); HGB 14.7 gm/dL (11.4-16.0); Lymphocytes # (A) 1.1 k/uL (1.0-4.8); Lymphocytes % (A) 37 %; MCH 30.2 pg (25.0-35.0); MCHC 33.5 g/dL (31.0-37.0); MCV 90.2 fL (80.0-100.0); Mean Platelet Volume 6.9; Monocytes # (A) 0.3 k/uL (0-1.0); Monocytes % (A) 9 %; Neutrophils # (A) 1.4 k/uL (1.3-7.7); Neutrophils % (A) 48 %; Platelet Count 141 k/uL (150-450); RBC 4.86 m/uL (3.80-5.40); RDW 12.7 % (11.5-15.5)
[2019-03-24 10:11] LABS: Albumin 4.5 g/dL (3.5-5.0); Calcium 9.6 mg/dL (8.4-10.2); Potassium 4.6 mmol/L (3.5-5.1); Total Bilirubin 1.1 mg/dL (0.2-1.3); Total Protein 7.7 g/dL (6.3-8.2)
[2019-03-29 11:00] VITALS: BMI 49.6
--- NOTE | 2019-04-02 19:41 | P.GSHP ---
History of Present Illness H&P Date: 04/03/19 DATE OF SERVICE: 04/03/2019 CHIEF COMPLAINT: Morbid obesity HISTORY OF PRESENT ILLNESS: Maria C Waggoner is a 33-year-old female who comes with lifelong morbid obesity. She comes in looking into the sleeve gastrectomy. She has factor V leiden and is on Xarelto. She has a family history of morbid obesity. She has tried caloric restriction with minimal weight loss. She reports resolution of reflux with omeprazole following her upper endoscopy. She denies any fatty food intolerance. She has developed osteoarthritis of the knees, lower band, hypertensive heart disease as a result of her morbid obesity. At height of 5 feet 5 inches, her ideal body weight is 149 pounds. She comes in 295 pounds. Her body mass index is 49.3. She is 146 pounds overweight. PAST MEDICAL HISTORY: 1. Morbid obesity due to excess calories 2. Body mass index of 49.1, initial 3. Osteoarthritis of the knees. 4. Osteoarthritis of the lower back. 5. Factor V Leiden 6. Gastroesophageal reflux disease 7. DVT extremity 8. Hypertensive heart disease 9. Vitamin D deficiency PAST SURGICAL HISTORY: 1. Appendectomy 2. section 3. Tubal ligation HOME MEDICATIONS: ALLERGIES: Medications and Allergies Home Medications Medication Instructions Recorded Confirmed Type Rivaroxaban [Xarelto] 20 mg PO DAILY 08/03/17 10/17/18 History Spironolactone [Aldactone] 25 mg PO DAILY 09/08/18 10/17/18 History Vitamin A Acetate [Vitamin A] 20,000 unit PO DAILY 09/08/18 10/17/18 History Ergocalciferol [Vitamin D2] 50,000 unit PO Q7D 10/17/18 10/17/18 History Allergies Allergy/AdvReac Type Severity Reaction Status Date / Time No Known Allergies Allergy Verified 10/17/18 10:54 SOCIAL HISTORY: Past tobacco use. FAMILY HISTORY: No family history of ulcerative colitis disease or Crohn's disease. Family history of morbid obesity. No lupus in the family. No reports of stomach or esophageal cancer. REVIEW OF ORGAN SYSTEMS: CONSTITUTIONAL: At height of 5 feet 5 inches, her ideal body weight is 149 pounds. She comes in 294 pounds. Her body mass index is 49.1. She is 145 pounds overweight. HEENT: Denies any active troubles with vision or hearing. ENDOCRINE: No diabetes. No hypothyroidism. CARDIOVASCULAR: No past reports of palpitations or heart attacks or chest pain. Past blood clots. RESPIRATORY: No asthma. No sleep apnea. GASTROINTESTINAL: Denies any bright red blood per rectum. No diarrhea. No constipation. Has GERD. MUSCULOSKELETAL: Has lower back pain and joint pain. Has osteoarthritis of the knees. NEURO: No headaches. No seizure disorders. PSYCH: No depression. No suicidal ideation. RHEUMATOLOGIC: No lupus. No rheumatoid arthritis. HEMATOLOGIC: Denies any abnormal bleeding or bruising. Personal history of DVTs. On anticoagulant. SKIN: No rash. No skin cancer. PHYSICAL EXAM: VITAL SIGNS: Height 5 foot 5 inches, weight 295 pounds. BMI 49.3 GENERAL: Well-developed in no acute distress. HEENT: No scleral icterus. Extraocular movements grossly intact. Hears conversational speech. No nasal drainage. NECK: Supple without lymphadenopathy. CHEST: Nonlabored respirations with equal bilateral excursions. CARDIOVASCULAR: Regular rate and regular rhythm. Distal 2+ pulses. ABDOMEN: Obese, soft, nontender, nondistended. No upper abdominal scars MUSCULOSKELETAL: No clubbing, cyanosis. Gross strength 5/5 distal lower extremities. NEURO: No focal or lateralizing signs. Cranial nerves 2 through 12 grossly within normal limits. PSYCH: Appropriate affect. Alert and oriented to person, place and time. SKIN: Good skin turgor. Well perfused. ASSESSMENT: 1. Morbid obesity due to excess calories 2. Body mass index of 49.3 3. Osteoarthritis of the knees. 4. Osteoarthritis of the lower back. 5. Factor V Leiden 6. Gastroesophageal reflux disease 7. DVT extremity 8. Hypertensive heart disease 9. Vitamin D deficiency 10. Gallbladder disorder 11. Fatty liver disease 12. Hiatal hernia 13. Erosive esophagitis 14. Elevated liver enzymes 15. Secondary hyperparathyroidism 16. Vitamin D deficiency 17. Vitamin A deficiency PLAN: 1. Bariatric options between a sleeve, band and a Conchtia-en-Y gastric bypass were reviewed in detail. The patient elected for a sleeve gastrectomy. Robotic assisted approach described. 2. The [place] [facility] Data was also reviewed with benefits and risks as described. 3. An 8 page second-generation bariatric consent form was reviewed in detail including potential of bleeding, infection, leaks, adequate weight loss, nutritional deficiencies which the patient demonstrated understanding of the risks. 4. A 2 week high-protein low caloric 800 kcal diet described to address hepatomegaly. 5. Preoperative labs including complete metabolic panel and CBC with type and screen recommended. 6. DVT prophylaxis per [place] [facility]. 7. Antibiotic prophylaxis. 8. Inpatient hospitalization anticipated for more than 2 nights. 9. All questions and concerns were addressed with the patient. Past Medical History Past Medical History: Blood Disorder, Deep Vein Thrombosis (DVT), GERD/Reflux, Liver Disease Additional Past Medical History / Comment(s): Factor 5 Leiden Disorder, multiple DVT's, Fatty Liver, Migraines. History of Any Multi-Drug Resistant Organisms: None Reported Past Surgical History: Appendectomy, Section, Tubal Ligation Additional Past Surgical History / Comment(s): section x 2, [place] teeth removed, IVC filter placement and removal. Past Anesthesia/Blood Transfusion Reactions: No Reported Reaction Additional Past Anesthesia/Blood Transfusion Reaction / Comment(s): Mom PONV. Past Psychological History: No Psychological Hx Reported Smoking Status: Former smoker Past Alcohol Use History: Occasional Additional Past Alcohol Use History / Comment(s): Hx light smoking during teenage years. Past Drug Use History: None Reported - Past Family History Mother Family Medical History: Cancer, Diabetes Mellitus, Thyroid Disorder Additional Family Medical History / Comment(s): Lymphoma. Medications and Allergies Home Medications Medication Instructions Recorded Confirmed Type Rivaroxaban [Xarelto] 20 mg PO HS 08/03/17 03/30/19 History Spironolactone [Aldactone] 25 mg PO HS 09/08/18 03/30/19 History Omeprazole 20 mg PO HS 11/14/18 03/30/19 History Ashwaghanda 1 dose PO DAILY 03/29/19 03/30/19 History Multivitamins, Thera [Multivitamin 1 tab PO DAILY 03/29/19 03/30/19 History (formulary)] Gardner-3 Fatty Acids/Fish Oil [Fish 1 each PO DAILY 03/29/19 03/30/19 History Oil 1,000 mg Softgel] Vitamin A 8,000 unit PO DAILY 03/29/19 03/30/19 History Allergies Allergy/AdvReac Type Severity Reaction Status Date / Time No Known Allergies Allergy Verified 03/29/19 11:01 Results - Labs 03/24/19 09:42 03/24/19 09:42
[~2019-04-03 08:00] MED LIST changes: +CHLORHEXIDINE GLUCONATE 15 ML CUP MUCOUS MEM ONE; +DEXAMETHASONE SOD PHOSPHATE 10 MG/ML 1 ML VIAL IV ONE; +ENOXAPARIN 40 MG/0.4 ML SYRINGE SQ STA; -LACTATED RINGERS 1,000 ML IV SCH; +MIDAZOLAM 2 MG/2 ML VIAL IV PRN; +PANTOPRAZOLE 40 MG/10 ML VIAL IV STA; +SCOPOLAMINE 1.5MG/72HR PATCH TRANSDERM ONE; +ceFAZolin 3 GM in SODIUM CHLORIDE 0.9% 100 ML IVPB ONE
[2019-04-03] MEDS ORDERED: LACTATED RINGERS 1,000 ML IV ONE ×3 (10:02→13:10)
--- NOTE | 2019-04-03 10:13 | P.HPADDEND ---
H&P Addendum H&P Addendum Date: 04/03/19 Benefits and risks of sleeve gastrectomy described. All questions addressed.
[2019-04-03] MEDS: fentaNYL (PF) 50 MCG/ML 2 ML AMP IV ONE ×4 (10:16→14:05)
[2019-04-03] MEDS: ONDANSETRON 4 MG/2 ML VIAL IVP ONE ×2 (10:19→12:21)
[2019-04-03] MEDS ORDERED: ROPIVACAINE 5 MG/ML 30 ML VIAL ONE (10:26)
[2019-04-03] MEDS ORDERED: fentaNYL (PF) 50 MCG/ML 2 ML AMP ONE (10:26)
[2019-04-03] MEDS ORDERED: SUCCINYLCHOLINE CHLORIDE VIAL 200 MG/10 ML VIAL IV ONE (10:26)
[2019-04-03] MEDS ORDERED: LIDOCAINE 1% INJ 10MG/ML (20 ML MDV) ONE (10:26)
[2019-04-03] MEDS ORDERED: MIDAZOLAM 2 MG/2 ML VIAL ONE (10:26)
[2019-04-03] MEDS ORDERED: ROCURONIUM BROMIDE 10 MG/ML 10 ML VIAL IV ONE (10:26)
[2019-04-03] MEDS ORDERED: NEOSTIGMINE 1 MG/ML 10 ML VIAL ONE (10:26)
[2019-04-03] MEDS ORDERED: DEXAMETHASONE SOD PHOSPHATE 4 MG/ML 1 ML VIAL ONE (10:26)
[2019-04-03] MEDS ORDERED: PROPOFOL 10 MG/ML 20 ML VIAL IV ONE (10:26)
[2019-04-03] MEDS ORDERED: GLYCOPYRROLATE 0.2 MG/ML 2 ML VIAL ONE (10:26)
--- NOTE | 2019-04-03 10:28 | P.ANPRN ---
Procedure Note - Anesthesia - Nerve Block Performed Bilateral Transversus Abdominis Single Time Out Performed: Yes Date of Procedure: 04/03/19 Procedure Start Time: 10:15 Procedure Stop Time: 10:20 Location of Patient Procedure: PreOp Indication: Requested by Surgeon Specifically requested for management of pain by DrDavid: Zeinab Myers Sedation Type: Sedate with meaningful contact maintained Preparation: Sterile Prep Position: Supine Catheter: None Needle Types: Pajunk Needle Gauge: 21 Ultrasound used to visualize needle placement: Yes Injectate: 0.5% Ropivacaine (see comment for volume) (20 ml per side) Blood Aspirated: No Pain Paresthesia on Injection Noted: No Resistance on Injection: Normal Image Stored and Saved: Yes Events: Uneventful and Well Tolerated
[2019-04-03] MEDS ORDERED: LIDOCAINE 1%-EPI 1:100,000 20 ML VIAL SQ ONE (10:52)
[2019-04-03] MEDS ORDERED: diphenhydrAMINE 50 MG/ML 1 ML VIAL IVP ONE (12:21)
[2019-04-03] MEDS ORDERED: diphenhydrAMINE 50 MG/ML 1 ML VIAL IVP PRN (12:23)
[2019-04-03] MEDS ORDERED: HYDROcodone/APAP 15 ML SOLUTION PO PRN (12:23)
[2019-04-03] MEDS ORDERED: ACETAMINOPHEN IV (For NPO) 1,000 MG in EMPTY BAG 1 BAG IVPB ONE (12:23)
[2019-04-03] MEDS ORDERED: NALOXONE 0.4 MG/ML 1 ML VIAL IV PRN (12:23)
--- NOTE | 2019-04-03 12:32 | P.OP ---
Date of Procedure: 04/03/19 Description of Procedure: SURGEON: JOSE MARIA LUONG MD PREOPERATIVE DIAGNOSES: 1. Morbid obesity due to excess calories 2. Body mass index of 49.3 3. Osteoarthritis of the knees. 4. Osteoarthritis of the lower back. 5. Factor V Leiden 6. Gastroesophageal reflux disease 7. DVT extremity 8. Hypertensive heart disease 9. Vitamin D deficiency 10. Gallbladder disorder 11. Fatty liver disease 12. Hiatal hernia 13. Erosive esophagitis 14. Elevated liver enzymes 15. Secondary hyperparathyroidism 16. Vitamin D deficiency 17. Vitamin A deficiency POSTOPERATIVE DIAGNOSES: 1. Morbid obesity due to excess calories 2. Body mass index of 49.3 3. Osteoarthritis of the knees. 4. Osteoarthritis of the lower back. 5. Factor V Leiden 6. Gastroesophageal reflux disease 7. DVT extremity 8. Hypertensive heart disease 9. Vitamin D deficiency 10. Gallbladder disorder 11. Fatty liver disease with early cirrhosis, micronodular of the liver 12. Elevated liver enzymes 13. Secondary hyperparathyroidism 14 Vitamin D deficiency 15. Vitamin A deficiency OPERATION: 1. Robotic assisted daVinci Xi laparoscopic sleeve gastrectomy with 40-Solomon Islander bougie, multiport. 2. Intraoperative esophagogastroduodenoscopy. ANESTHESIA: Gen. local anesthetic ESTIMATED BLOOD LOSS: 5 mL SPECIMENS REMOVED: Sleeve gastrectomy COMPLICATIONS: None. INDICATIONS: Maria C Waggoner is a 34-year-old female who comes with lifelong morbid obesity. She comes in looking into the sleeve gastrectomy. She has factor V leiden and is on Xarelto. She has a family history of morbid obesity. She has tried caloric restriction with minimal weight loss. She reports resolution of reflux with omeprazole following her upper endoscopy. She denies any fatty food intolerance. She has developed osteoarthritis of the knees, lower band, hypertensive heart disease as a result of her morbid obesity. At height of 5 feet 5 inches, her ideal body weight is 149 pounds. She comes in 277 pounds from 295 pounds, 2 months ago. She has lost 18 pounds in 2 months. Her body mass index is down from 49.3 to 46.3. She is 128 pounds overweight. She comes in for sleeve gastrectomy. All surgical options for morbid obesity had been described using the [place] [facility] comorbidity resolution including complication risk score. A second-generation bariatric consent form was described in detail including the possibility of protein malnutrition, leaks, gastric stricture, venous thrombosis, gastroesophageal reflux disease, need for further surgery for which she demonstrated understanding. Benefits and risks of the procedure were described at length. Informed consent was obtained. DESCRIPTION: The patient was brought into the operating room theater. Preoperatively she had received Lovenox subcutaneously for DVT prophylaxis. Additionally she had Peridex oral solution as an oral decontaminant. After general induction, the abdomen was prepped and draped in standard sterile fashion. An Ioban draping was placed along the abdomen. Fish catheter was placed. A robotic da Kit Xi system was prepped and primed. The xiphoid to umbilicus measured 21 cm. At 15 cm from the xiphoid, proposed port sites were marked with indelible marker along the anterior axillary line bilaterally, mid axillary line bilaterally with each ports were marked 10 to 15 cm from each other. The shipping and receiving assistant port was marked along the left lateral abdominal wall. The robotic stapler port was marked for the right midclavicular line. A 5 mm 0 degrees laparoscopic trocar entry was performed along the left upper quadrant. The abdomen was insufflated to 15 mmHg pressure he tolerated well. Diagnostic laparoscopy demonstrated no injury to bowel, viscera, or mesentery. The liver surface was remarkable for micronodular fatty liver disease. No injury had occurred to the small bowel or viscera. Along the hiatus no evidence of large prominent hiatal hernia was found. A 8 mm port was placed along the right upper abdominal wall after exchanging the 5 mm port. A separate 8 mm port was placed along the left lateral abdominal wall. Please note that the ports were placed at least 20 cm away from the target anatomy. Care was taken to check each robotic arms were safely away from collision with the bed or the patient. At the epigastrium, a median sized Christiano liver retractor was placed under direct visualization with the Iron Data Reduction Technician placed under the right shoulder of the patient. Next, 12-mm robot stapler port was placed along the right upper quadrant. The camera 8-mm port was maintained along the epigastrium, The patient was repositioned in reverse Trendelenburg position at 20-degrees after lowering the bed. The robot was docked along the left side of the patient. Using a grasper for arm 4, a vessel sealer for arm 3, including grasper for arm 1, the robotic system was docked and primed as described. Instruments were interchanged by the shipping and receiving assistant for stapler loads. The camera was placed at 30-degrees down. I had sat at the console. The pylorus was identified and 6 cm proximally along the greater curvature of the stomach, the short gastrics were mobilized upwards to the angle of His using a vessel sealer. Hemostasis was excellent during this portion of the procedure. Next, the upper pole of the stomach was adherent to the left renee, which was gently dissected free using atraumatic grasper. The nursing manager banking placed a 40-Sol[place] Islander blunted bougie into the stomach. Robotic stapler green loads 60 mm x 2, followed by blue 60 mm x 4 loads and white 60 mm x 1 loads were used to create the sleeve. Initial firing was across the antrum of the stomach towards the angle of His. The staple line was completely hemostatic and linear without corkscrewing. Hemostasis was excellent. The space from the angularis incisura of the sleeve was approximately 4 cm. I then went to the head of the bed to perform the intraoperative esophagogastroduodenoscopy leak test. The upper pole of the stomach was bathed using normal saline solution. The scope was withdrawn with careful inspection along the staple line for which no leaks were found along the entire length. Additionally,the sleeve was completely hemostatic without any encroachment along the angularis incisura. Its topology was a soft "J". No stricture was encountered upon placement of the scope. The GI tract was desufflated. The patient tolerated this portion of the procedure well. The scope was completely withdrawn. The robot was undocked. I then rescrubbed into case, whereby the irrigation fluid was aspirated from the abdominal cavity. Tisseel fibrin sealant was placed along the entire staple length. Once dried the Christiano liver retractor was removed. Attention was now brought to removal of the specimen. The distal end of the sleeve gastrectomy specimen was brought out through the 12 mm port at the left upper quadrant. The specimen was gently removed en total. No contamination had occurred during this process. All instruments and pneumoperitoneum including irrigation fluid was removed from the abdominal cavity. The 12 mm port site was closed using 0-Vicryl and Franco Chowdhuryson and irrigated with diluted hydrogen peroxide. The final incisions were closed using subcuticular interrupted suture of 4-0 Monocryl. Dermabond was applied to the skin once the skin had been cleansed. OptiFoam dressing was placed along the stomach extraction site. At the end of the procedure, needle, sponge, and instrument count was verified correct by the salesperson surgical appliances. The patient was taken to the postanesthesia care unit in stable condition. She had tolerated the procedure well. Intraoperative films and findings were reviewed with the patient's family. FINDINGS: 1. Negative intraoperative esophagogastrojejunoscopy leak test. 2. Micronodular fatty liver disease with cirrhosis and no large hiatus hernia. 3. Total of 6 staplers used including 2 - 60 mm green robot pasha and 3 - 60 mm blue and 1 - 60 mm white robot loads used to create the gastric sleeve. 4. Xiphoid to umbilicus of 21 cm. 5. Trocars placed 15 cm from xiphoid process 6. Sleeve gastrectomy 24.5 x 5 cm 7. Console time 38 minutes
[2019-04-03] MEDS ORDERED: PROMETHAZINE INJ 25 MG/ML 1 ML VIAL IVPB ONE (12:45)
[2019-04-03] MEDS ORDERED: fentaNYL (PF) 50 MCG/ML 2 ML AMP IV ONE (12:54)
[2019-04-03] MEDS: HYDROmorphone 0.5 MG/0.5 ML SYRINGE IVP PRN ×2 (14:45→14:54)
[2019-04-03] MEDS: LACTATED RINGERS 1,000 ML IV SCH (15:48)
[2019-04-03] MEDS ORDERED: DEXAMETHASONE SOD PHOSPHATE 10 MG/ML 1 ML VIAL IV PRN (16:10)
[2019-04-03] MEDS: ALBUTEROL NEBULIZED 2.5 MG/3 ML INHALATION SCH ×2 (16:16→21:17)
[2019-04-03] MEDS: METOCLOPRAMIDE 5 MG/ML 2 ML VIAL IVP SCH (16:42)
[2019-04-03] MEDS ORDERED: SCOPOLAMINE 1.5MG/72HR PATCH TRANSDERM SCH (17:00)
[2019-04-03] MEDS: HYOSCYAMINE ORAL DROPS 1.875 MG/15 ML BOTTLE PO SCH (18:17)
[2019-04-03] MEDS: ONDANSETRON 4 MG/2 ML VIAL IVP SCH (18:17)
[2019-04-03] MEDS: DEXAMETHASONE SOD PHOSPHATE 4 MG/ML 1 ML VIAL IV SCH (18:17)
[2019-04-03] MEDS: SIMETHICONE 40 MG/0.6 ML DROPS 2,000 MG/30 ML BOTTLE PO SCH (18:18)
[2019-04-03] MEDS: ceFAZolin 3 GM in SODIUM CHLORIDE 0.9% 100 ML IVPB SCH (18:18)
[2019-04-03] MEDS: 0.9% NACL WITH KCL 20 MEQ/L 1,000 ML IV SCH ×2 (18:26→19:46)
[2019-04-03] MEDS: HYDROmorphone 1 MG/ML 1 ML SYRINGE IVP PRN ×2 (18:48→22:36)
[2019-04-03] MEDS ORDERED: SPIRONOLACTONE 25 MG TAB PO SCH (21:00)
[2019-04-04] MEDS: ONDANSETRON 4 MG/2 ML VIAL IVP SCH ×3 (00:16→12:03)
[2019-04-04] MEDS: DEXAMETHASONE SOD PHOSPHATE 4 MG/ML 1 ML VIAL IV SCH ×3 (00:16→12:02)
[2019-04-04] MEDS: SIMETHICONE 40 MG/0.6 ML DROPS 2,000 MG/30 ML BOTTLE PO SCH ×3 (00:16→12:15)
[2019-04-04] MEDS: HYOSCYAMINE ORAL DROPS 1.875 MG/15 ML BOTTLE PO SCH ×3 (00:16→12:15)
[2019-04-04] MEDS: METOCLOPRAMIDE 5 MG/ML 2 ML VIAL IVP SCH ×3 (00:17→12:03)
[2019-04-04 01:51] VITALS: RESP 18
[2019-04-04] MEDS: 0.9% NACL WITH KCL 20 MEQ/L 1,000 ML IV SCH (01:56)
[2019-04-04] MEDS: ceFAZolin 3 GM in SODIUM CHLORIDE 0.9% 100 ML IVPB SCH (03:22)
[2019-04-04] MEDS: LACTATED RINGERS 1,000 ML IV SCH (04:25)
[2019-04-04 07:43] LABS: Basophils % (A) 0 %; Eosinophils % (A) 0 %; HCT 40.3 % (34.0-46.0); HGB 13.7 gm/dL (11.4-16.0); Lymphocytes # (A) 0.5 k/uL (1.0-4.8); Lymphocytes % (A) 10 %; MCH 30.3 pg (25.0-35.0); MCHC 33.9 g/dL (31.0-37.0); MCV 89.5 fL (80.0-100.0); Mean Platelet Volume 6.9; Monocytes # (A) 0.1 k/uL (0-1.0); Monocytes % (A) 2 %; Neutrophils # (A) 4.3 k/uL (1.3-7.7); Neutrophils % (A) 87 %; Platelet Count 146 k/uL (150-450); RBC 4.51 m/uL (3.80-5.40); RDW 12.9 % (11.5-15.5)
[2019-04-04 07:50] LABS: African American GFR (CKD) >90 (>60 ml/min/1.73 sqM); Anion Gap 11 mmol/L; Blood Urea Nitrogen 7 mg/dL (7-17); Calcium 8.9 mg/dL (8.4-10.2); Carbon Dioxide 21 mmol/L (22-30); Chloride 107 mmol/L (98-107); Magnesium 1.6 mg/dL (1.6-2.3); Phosphorus 3.5 mg/dL (2.5-4.5); Potassium 4.4 mmol/L (3.5-5.1); Sodium 139 mmol/L (137-145)
[2019-04-04] MEDS ORDERED: 0.9% NACL WITH KCL 20 MEQ/L 1,000 ML IV SCH (08:00)
[2019-04-04 08:04] VITALS: BP 115/76; PULSE 47; TEMP 97.6
[2019-04-04] MEDS: ALBUTEROL NEBULIZED 2.5 MG/3 ML INHALATION SCH ×2 (08:06→12:03)
[2019-04-04] MEDS ORDERED: ENOXAPARIN 40 MG/0.4 ML SYRINGE SQ SCH (09:00)
[2019-04-04] MEDS ORDERED: PANTOPRAZOLE 40 MG/10 ML VIAL IV SCH (09:00)
--- NOTE | 2019-04-04 09:08 | FL ---
EXAMINATION TYPE: FL UGI DATE OF EXAM: 04/04/2019 LIMITED UGI: CLINICAL HISTORY: Morbid Obesity, gastric sleeve surgery yesterday. TECHNIQUE: Limited esophagram is performed utilizing 20 oz of contrast. A total of roughly 25 second s of fluoroscopic time was utilized during procedure. 19 spot images are saved to PACS. COMPARISON: CT abdomen and pelvis December 26, 2018 FINDINGS: The patient swallowed contrast without difficulty or delay. Esophageal peristalsis and mo tility are within normal limits. There is good flow of contrast along the diaphragmatic hiatus into proximal stomach and subsequent flow through proximal anastomosis into gastric sleeve. There is mild delay in flow from distal sleeve and anastomosis into pylorus and duodenal sweep. Patient remains asy mptomatic. There is no evidence of contrast extravasation to suggest leak. Small amount of pneumoperi toneum below right hemidiaphragm presumed postoperative. IMPRESSION: No evidence of leak or significant obstruction status post recent gastric sleeve surgery yesterday.
--- NOTE | 2019-04-04 13:31 | P.DS ---
Providers Date of admission: 04/03/19 09:26 Expected date of discharge: 04/04/19 Attending physician: Zeinab Myers Primary care physician: Anay Del Real - Discharge Diagnosis(es) (1) Morbid obesity with BMI of 45.0-49.9, adult Current Visit: Yes Status: Acute (2) Factor V deficiency Current Visit: No Status: Acute Priority: Medium Hospital Course: 34-year-old female who underwent robotic-assisted laparoscopic sleeve gastrectomy with Dr. Myers. Patient is doing well postoperatively. Esophagram negative for leak or obstruction. Patient has been tolerating clear liquid diet. Vital signs have been stable. She is stable for discharge home today per Dr. Myers. She'll be discharged home on Lovenox 60mg BID per Dr. Myers until Wednesday evening and then she can begin her Xarelto on Wednesday. Please see EMR for further hospital course details. Discharge diagnosis 1. Morbid obesity due to excess calories 2. Body mass index of 49.3 3. Osteoarthritis of the knees. 4. Osteoarthritis of the lower back. 5. Factor V Leiden 6. Gastroesophageal reflux disease 7. DVT extremity 8. Hypertensive heart disease 9. Vitamin D deficiency 10. Gallbladder disorder 11. Fatty liver disease with early cirrhosis, micronodular of the liver 12. Elevated liver enzymes 13. Secondary hyperparathyroidism 14 Vitamin D deficiency 15. Vitamin A deficiency Nurse practitioner note has been reviewed by physician. Signing provider agrees with the documented findings, assessment, and plan of care. Patient Condition at Discharge: Stable Plan - Discharge Summary Discharge Rx Participant: Yes New Discharge Prescriptions: New Acetaminophen Oral Susp [Tylenol Oral Susp] 650 mg PO Q4H PRN #200 ml PRN Reason: Pain Bisacodyl [Dulcolax] 5 mg PO DAILY PRN #10 tablet.dr PRN Reason: Constipation Simethicone 40 mg/0.6 ml Drops [Mylicon Drops] 40 mg PO PCHS PRN #30 ml PRN Reason: gas Omeprazole 40 mg PO DAILY #30 cap Ondansetron Odt [Zofran Odt] 4 mg PO Q8HR PRN #9 tab PRN Reason: Nausea Enoxaparin [Lovenox] 60 mg SQ Q12H #12 syringe Continue Spironolactone [Aldactone] 25 mg PO HS Discontinued Rivaroxaban [Xarelto] 20 mg PO HS Omeprazole 20 mg PO HS Multivitamins, Thera [Multivitamin (formulary)] 1 tab PO DAILY Vitamin A 8,000 unit PO DAILY [place]-3 Fatty Acids/Fish Oil [Fish Oil 1,000 mg Softgel] 1 each PO DAILY Ashwaghanda 1 dose PO DAILY Discharge Medication List Spironolactone [Aldactone] 25 mg PO HS 09/08/18 [History] Acetaminophen Oral Susp [Tylenol Oral Susp] 650 mg PO Q4H PRN #200 ml 04/04/19 [Rx] Bisacodyl [Dulcolax] 5 mg PO DAILY PRN #10 tablet. 04/04/19 [Rx] Enoxaparin [Lovenox] 60 mg SQ Q12H #12 syringe 04/04/19 [Rx] Omeprazole 40 mg PO DAILY #30 cap 04/04/19 [Rx] Ondansetron Odt [Zofran Odt] 4 mg PO Q8HR PRN #9 tab 04/04/19 [Rx] Simethicone 40 mg/0.6 ml Drops [Mylicon Drops] 40 mg PO PCHS PRN #30 ml 04/04/19 [Rx] Follow up Appointment(s)/Referral(s): Anay Del Real MD [Primary Care Provider] - 04/13/19 2:00 pm Bariatric [place], [place] [NON-STAFF] - 04/07/19 10:00 am Patient Instructions/Handouts: Nutrition after Bariatric Surgery (DC), Laparoscopic Sleeve Gastrectomy (DC) Activity/Diet/Wound Care/Special Instructions: RESUME XARELTO ON WEDNESDAY APRIL 10, 2019 BEGIN LOVENOX INJECTIONS WEDNESDAY MORNING No lifting over 4 pounds You may shower. No soaking or tub baths Very light activity until you are reevaluated at your follow up appointment with your surgeon
[2019-04-05] MEDS ORDERED: BISACODYL 5 MG TABLET.DR PO PRN (08:00)
== END 2019-04-04 13:47 | disposition home or self-care (01) | DRG 620 ==
LOC: 2ORMAIN 09:26 → 4SSUR 15:11
PROVIDERS: ADMIT Surgery Plastic and Reconstructive Surgery; ATTEND Surgery Plastic and Reconstructive Surgery
PROC: 8E0W8CZ Robotic Assisted Procedure of Trunk Region, Via Natural or Artificial Opening Endoscopic (ICD-10-PCS; 2019-04-03)
PROC: 0DJ08ZZ Inspection of Upper Intestinal Tract, Via Natural or Artificial Opening Endoscopic (ICD-10-PCS; 2019-04-03)
PROC: 0DB64Z3 Excision of Stomach, Percutaneous Endoscopic Approach, Vertical (ICD-10-PCS; principal; 2019-04-03 09:00)
DX: E66.01 Morbid (severe) obesity due to excess calories (principal); D68.51 Activated protein C resistance; N25.81 Secondary hyperparathyroidism of renal origin; Z68.42 Body mass index [BMI] 45.0-49.9, adult; I11.9 Hypertensive heart disease without heart failure; K74.60 Unspecified cirrhosis of liver; K76.0 Fatty (change of) liver, not elsewhere classified; E55.9 Vitamin D deficiency, unspecified; E50.9 Vitamin A deficiency, unspecified; K21.9 Gastro-esophageal reflux disease without esophagitis; K82.9 Disease of gallbladder, unspecified; M17.0 Bilateral primary osteoarthritis of knee; M47.9 Spondylosis, unspecified; G43.909 Migraine, unspecified, not intractable, without status migrainosus; R74.8 Abnormal levels of other serum enzymes; Z86.718 Personal history of other venous thrombosis and embolism; Z79.01 Long term (current) use of anticoagulants; Z79.899 Other long term (current) drug therapy; Z87.891 Personal history of nicotine dependence; Z90.49 Acquired absence of other specified parts of digestive tract; Z98.51 Tubal ligation status; Z80.7 Family history of other malignant neoplasms of lymphoid, hematopoietic and related tissues; Z83.3 Family history of diabetes mellitus; Z83.49 Family history of other endocrine, nutritional and metabolic diseases
CPT/HCPCS: 36415; 64488; 74240; 80051; 80053; 81025; 82310; 82565; 83735; 84100; 84520; 85025; 86850; 86900; 86901; 88307; 94760; 94762

== ENCOUNTER → 2019-04-05 | Outpatient (CLI) | payer BC ==
[~2019-04-05] MED LIST changes: -CHLORHEXIDINE GLUCONATE 15 ML CUP MUCOUS MEM ONE; -DEXAMETHASONE SOD PHOSPHATE 10 MG/ML 1 ML VIAL IV ONE; -ENOXAPARIN 40 MG/0.4 ML SYRINGE SQ STA; -MIDAZOLAM 2 MG/2 ML VIAL IV PRN; -PANTOPRAZOLE 40 MG/10 ML VIAL IV STA; -SCOPOLAMINE 1.5MG/72HR PATCH TRANSDERM ONE; +SCOPOLAMINE 1.5MG/72HR PATCH TRANSDERM STA; -ceFAZolin 3 GM in SODIUM CHLORIDE 0.9% 100 ML IVPB ONE
--- NOTE | 2019-04-05 14:17 | P.PN ---
Subjective Progress Note Date: 04/05/19 She comes in epigastric pain to chest pain. Recommend fluid hydration. Need omeprazole. 1. Troponin 2. CT chest 3. Continue oral drops 4. NEeds binder 5. Stop aldactone
[2019-04-05 14:38] VITALS: BP 108/60; PULSE 59; TEMP 97.7; BMI 46.7
--- NOTE | 2019-04-05 16:36 | CT ---
EXAMINATION TYPE: CT chest angio for PE DATE OF EXAM: 04/05/2019 COMPARISON: None HISTORY: chest pain post-op gastric sleeve. hx of DVT. CT DLP: 700 mGycm CONTRAST: CT chest with contrast and 3D reconstruction with MIP imaging is performed with IV Contrast, patient injected with 74cc mL of Isovue 370. Contrast-enhanced CT of the chest was performed through the course of the pulmonary arteries with es g and mediastinal window settings submitted. 3D reconstruction with MIP imaging was also performed. PULMONARY ARTERIES: The pulmonary arteries and their major tributaries are patent. I do not see georges dence for sizable filling defect to suggest pulmonary embolic process. LUNGS: The lungs are clear and free of infiltrate. No evidence for atelectasis. No pulmonary nodule or mass is detected. No pleural effusion. MEDIASTINUM: Thoracic aorta is of normal caliber,however, evaluation is limited given timing of the contrast bolus. If there is concern for thoracic aortic pathology consider JOVANNY. Correlate clinicall y . The heart is not enlarged. No evidence for mediastinal mass. No mediastinal lymph nodes greater than 1cm. HILAR STRUCTURES: No evidence for mass. No hilar lymph nodes greater than 1 cm. UPPER ABDOMEN: No significant abnormality is seen. IMPRESSION: 1. No evidence for Pulmonary embolism at this time.
== END | disposition home or self-care (01) ==
LOC: BARWHC3 13:29
PROVIDERS: ATTEND Surgery Plastic and Reconstructive Surgery
DX: R10.13 Epigastric pain (principal); R07.9 Chest pain, unspecified; Z79.899 Other long term (current) drug therapy
CPT/HCPCS: 71275; 99211; Q9967

== ENCOUNTER → 2019-04-06 | Outpatient (CLI) | payer BC ==
[~2019-04-06] MED LIST changes: -SCOPOLAMINE 1.5MG/72HR PATCH TRANSDERM STA; +SODIUM CHLORIDE 0.9% 500 ML 500 ML in EMPTY BAG 1 BAG IV PRN
[2019-04-06 12:56] VITALS: BP 107/74; PULSE 62; RESP 18; TEMP 97.9
[2019-04-06] MEDS: SODIUM CHLORIDE 0.9% 1,000 ML IV ONE ×2 (13:06→14:01)
== END | disposition home or self-care (01) ==
LOC: PROCWHC3 12:46
PROVIDERS: ATTEND Surgery Plastic and Reconstructive Surgery
DX: E86.0 Dehydration (principal)
CPT/HCPCS: 96360; 96361

== ENCOUNTER → 2019-04-07 | Outpatient (CLI) | payer BC ==
--- NOTE | 2019-04-07 10:25 | P.PN ---
Subjective Progress Note Date: 04/07/19 DATE OF SERVICE: 04/07/2019 CHIEF COMPLAINT: Sleeve gastrectomy HISTORY OF PRESENT ILLNESS: Maria C Waggoner is a 34-year-old female status post sleeve gastrectomy, 04/03/19. She is POD 4. She now comes in 2 days later from her last visit. She comes in with some vision problems. She was discharged to [facility] from the hospital with Lovenox. She reports not taking her injections as instructed. She reports nausea. At height of 5 feet 5 inches, her ideal body weight is 149 pounds. Highest weight of 295 pounds, BMI 49.3 Today she comes in 276 pounds from 280 pounds, 2 days ago. She has lost 4 pounds in 2 days. Her body mass index is 46.1 from 49.3. Lifetime weight loss of 19 pounds. Percent excess weight loss of 13%. She is 127 pounds overweight. PHYSICAL EXAM: VITAL SIGNS: Height 5 foot 5 inches, weight 276 pounds. BMI 46.1 Vital Signs Temp 97.7 F 04/07/19 11:14 Pulse 70 04/07/19 11:14 Resp BP 107/78 04/07/19 11:14 Pulse Ox GENERAL: Well-developed in no acute distress. HEENT: No scleral icterus. Extraocular movements grossly intact. Hears convers ational speech. No nasal drainage. NECK: Supple without lymphadenopathy. CHEST: Nonlabored respirations with equal bilateral excursions. CARDIOVASCULAR: Regular rate and regular rhythm. Distal 2+ pulses. ABDOMEN: Obese, soft. Incisions are clean, dry and intact. Optifoam discontinued. MUSCULOSKELETAL: No clubbing, cyanosis. Gross strength 5/5 distal lower extremities. NEURO: No focal or lateralizing signs. Cranial nerves 2 through 12 grossly within normal limits. PSYCH: Appropriate affect. Alert and oriented to person, place and time. SKIN: Good skin turgor. Well perfused. STUDIES: CT chest reviewed with her without pulmonary embolism LABS: WBC normal ASSESSMENT: 1. Morbid obesity due to excess calories 2. Body mass index of 49.3, now 46.1 3. Osteoarthritis of the knees. 4. Osteoarthritis of the lower back. 5. Factor V Leiden 6. Gastroesophageal reflux disease 7. DVT extremity 8. Hypertensive heart disease 9. Vitamin D deficiency 10. Gallbladder disorder 11. Fatty liver disease 12. Hiatal hernia 13. Erosive esophagitis 14. Elevated liver enzymes 15. Secondary hyperparathyroidism 16. Vitamin D deficiency 17. Vitamin A deficiency 18. Status post sleeve gastrectomy 19. Chest pain 20. Epigastric pain 21. Dehydration PLAN: 1. She has no blood clots. Recommend continue Lovenox 2. All of her prescriptions were reviewed. 3. Follow up in 1 week.
[2019-04-07 11:16] VITALS: BP 107/78; PULSE 70; TEMP 97.7; BMI 46.0
== END | disposition home or self-care (01) ==
LOC: BARWHC3 09:57
PROVIDERS: ATTEND Surgery Plastic and Reconstructive Surgery
DX: Z48.815 Encounter for surgical aftercare following surgery on the digestive system (principal); E66.01 Morbid (severe) obesity due to excess calories; M17.0 Bilateral primary osteoarthritis of knee; D68.2 Hereditary deficiency of other clotting factors; K21.9 Gastro-esophageal reflux disease without esophagitis; I82.409 Acute embolism and thrombosis of unspecified deep veins of unspecified lower extremity; I11.9 Hypertensive heart disease without heart failure; E55.9 Vitamin D deficiency, unspecified; K82.9 Disease of gallbladder, unspecified; K76.0 Fatty (change of) liver, not elsewhere classified; K44.9 Diaphragmatic hernia without obstruction or gangrene; K22.10 Ulcer of esophagus without bleeding; R94.5 Abnormal results of liver function studies; N25.81 Secondary hyperparathyroidism of renal origin; E50.9 Vitamin A deficiency, unspecified; E86.0 Dehydration; Z68.42 Body mass index [BMI] 45.0-49.9, adult; Z98.84 Bariatric surgery status; Z79.01 Long term (current) use of anticoagulants
CPT/HCPCS: 99211

== ENCOUNTER → 2019-04-14 | Outpatient (CLI) | payer BC ==
--- NOTE | 2019-04-14 10:27 | P.PN ---
Subjective Progress Note Date: 04/14/19 She had troubles with nausea not resolved. Vision now improved with scopolamine patch. NO GERD. She vomited wednesday and did not go onto her trip. She is tolerating liquids and fluids. Incisions are clean dry and intact ASSESSMENT: 1. 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
--- NOTE | 2019-04-14 10:29 | P.PN ---
Progress Note - Text Progress Note Date: 04/14/19 To whom it may concern: Maria C Waggoner is under my surgical care. She may return to work with restrictions of 4 pounds until May 03. Regards, Zeinab Myers MD FACS
[2019-04-14 11:10] VITALS: BP 110/82; PULSE 103; RESP 16; TEMP 97.2; BMI 43.7
== END ==
LOC: BARWHC3 10:02
PROVIDERS: ATTEND Surgery Plastic and Reconstructive Surgery
DX: E66.01 Morbid (severe) obesity due to excess calories (principal); Z68.41 Body mass index [BMI] 40.0-44.9, adult
CPT/HCPCS: 99211

== ENCOUNTER → 2019-04-17 | Outpatient (CLI) | payer BC ==
[2019-04-17 10:58] VITALS: BP 101/64; PULSE 52; RESP 16; TEMP 97.9
[2019-04-17] MEDS: SODIUM CHLORIDE 0.9% 1,000 ML IV SCH ×2 (11:01→11:56)
== END ==
LOC: PROCWHC3 10:29
PROVIDERS: ATTEND Surgery Plastic and Reconstructive Surgery
DX: E86.0 Dehydration (principal)
CPT/HCPCS: 96360; 96361

== ENCOUNTER → 2019-05-03 | Outpatient (CLI) | payer BC ==
--- NOTE | 2019-05-03 16:12 | P.PN ---
Subjective Progress Note Date: 05/03/19 She has lost 30 pounds. She has GERD. Omeprazole. She has occassional pain and has hunger pain. No dysphagia. She used vibrator ball. She has healed very well. Her protein intake is under 75 grams daily.
[2019-05-03 16:23] VITALS: BP 108/75; PULSE 64; TEMP 97.5; BMI 42.3
--- NOTE | 2019-05-03 17:01 | P.PN ---
Progress Note - Text Progress Note Date: 05/03/19 To Whom It May Concern: Maria C Waggoner is under my surgical care. She may return to work 05/04/2019 without restrictions. Regards, Zeinab Myers MD FACS
== END ==
LOC: BARWHC3 15:52
PROVIDERS: ATTEND Surgery Plastic and Reconstructive Surgery
DX: K21.9 Gastro-esophageal reflux disease without esophagitis (principal); E66.01 Morbid (severe) obesity due to excess calories; Z68.41 Body mass index [BMI] 40.0-44.9, adult; Z79.899 Other long term (current) drug therapy
CPT/HCPCS: 97803; 99211

== ENCOUNTER → 2019-05-09 | Outpatient (CLI) | payer BC ==
[~2019-05-09] MED LIST changes: +ONDANSETRON 4 MG/2 ML VIAL IVP NR
[2019-05-09 10:25] VITALS: BP 107/75; PULSE 76; RESP 16; TEMP 97.8
[2019-05-09] MEDS: SODIUM CHLORIDE 0.9% 1,000 ML IV SCH ×2 (10:33→11:36)
[2019-05-09 10:50] LABS: Basophils % (A) 0 %; Eosinophils # (A) 0.1 k/uL (0-0.7); Eosinophils % (A) 3 %; HCT 45.8 % (34.0-46.0); Lymphocytes # (A) 1.1 k/uL (1.0-4.8); Lymphocytes % (A) 33 %; MCH 29.4 pg (25.0-35.0); MCHC 32.7 g/dL (31.0-37.0); MCV 89.9 fL (80.0-100.0); Mean Platelet Volume 8.4; Monocytes # (A) 0.2 k/uL (0-1.0); Monocytes % (A) 6 %; Neutrophils # (A) 1.8 k/uL (1.3-7.7); Neutrophils % (A) 56 %; Platelet Count 126 k/uL (150-450); RBC 5.09 m/uL (3.80-5.40); RDW 13.6 % (11.5-15.5); WBC 3.2 k/uL (3.8-10.6)
[2019-05-09 10:54] LABS: ALT 73 U/L (9-52); AST 50 U/L (14-36); African American GFR (CKD) >90 (>60 ml/min/1.73 sqM); Albumin 4.1 g/dL (3.5-5.0); Alkaline Phosphatase 50 U/L (38-126); Anion Gap 12 mmol/L; Blood Urea Nitrogen 7 mg/dL (7-17); Calcium 9.5 mg/dL (8.4-10.2); Carbon Dioxide 23 mmol/L (22-30); Chloride 107 mmol/L (98-107); Glucose 80 mg/dL (74-99); Non-African American GFR(CKD) >90 (>60 ml/min/1.73 sqM); Sodium 142 mmol/L (137-145); Total Bilirubin 1.2 mg/dL (0.2-1.3)
== END | disposition home or self-care (01) ==
LOC: PROCWHC3 10:00
PROVIDERS: ATTEND Surgery Plastic and Reconstructive Surgery
DX: E86.0 Dehydration (principal)
CPT/HCPCS: 80053; 85025; 96360; 96361; 36415; J2405

== ENCOUNTER → 2019-05-22 | Outpatient (CLI) | payer BC ==
[2019-05-22 10:49] LABS: HCT 41.2 % (34.0-46.0); HGB 13.8 gm/dL (11.4-16.0); MCH 30.4 pg (25.0-35.0); MCHC 33.5 g/dL (31.0-37.0); MCV 90.6 fL (80.0-100.0); Mean Platelet Volume 8.2; Platelet Count 130 k/uL (150-450); RBC 4.55 m/uL (3.80-5.40); RDW 14.2 % (11.5-15.5)
[2019-05-22 10:52] LABS: Partial Thromboplastin Time 24.5 sec (22.0-30.0); Prothrombin Time 10.7 sec (9.0-12.0)
[2019-05-22 17:13] LABS: % Iron Saturation 26.83 (12.00-45.00); African American GFR (CKD) 131.9 (60.0-200.0); Albumin/Globulin Ratio 2.22 (1.60-3.17); Anion Gap 4.4 mmol/L (4.00-12.00); BUN/Creat Ratio 12.86 Ratio (12.00-20.00); Carbon Dioxide 25.6 mmol/L (21.6-31.8); Chol/HDL Ratio 3.46; Globulin 1.8 g/dL (1.6-3.3); LDL Cholesterol,Calculated 67.6 mg/dL (0.0-131.0); Magnesium 1.8 mg/dL (1.5-2.4); Non-African American GFR(CKD) 113.8 (60.0-200.0); Phosphorus 3.7 mg/dL (2.4-5.1); Potassium 3.8 mmol/L (3.5-5.5); Total Bilirubin 0.9 mg/dL (0.3-1.2); Total Protein 5.8 g/dL (6.2-8.2); VLDL Calculation 23.4 mg/dL (5.00-40.00)
[2019-05-22 17:38] LABS: Ferritin 422.9 ng/mL (10.0-291.0)
[2019-05-22 18:14] LABS: Hemoglobin A1C 5.4 % (4.0-6.0)
[2019-05-23 12:37] LABS: Zinc, Serum 86 ug/dL (60-130)
== END | disposition home or self-care (01) ==
LOC: LABWHC1 10:14
PROVIDERS: ATTEND Surgery Plastic and Reconstructive Surgery
DX: E21.1 Secondary hyperparathyroidism, not elsewhere classified (principal); D50.9 Iron deficiency anemia, unspecified; K90.9 Intestinal malabsorption, unspecified; E55.9 Vitamin D deficiency, unspecified; K74.1 Hepatic sclerosis; N19 Unspecified kidney failure; K50.90 Crohn's disease, unspecified, without complications
CPT/HCPCS: 36415; 80053; 80061; 82306; 82525; 82607; 82728; 82746; 83036; 83540; 83550; 83735; 83970; 84100; 84134; 84255; 84425; 84443; 84590; 84630; 85027; 85610; 85730

== ENCOUNTER → 2019-07-05 | Outpatient (CLI) | payer BC ==
[2019-07-05 13:45] VITALS: BP 105/76; PULSE 73; RESP 16; TEMP 97.9; BMI 37.4
--- NOTE | 2019-07-05 13:50 | P.PN ---
Subjective Progress Note Date: 07/05/19 DATE OF SERVICE: 07/05/2019 CHIEF COMPLAINT: Sleeve gastrectomy HISTORY OF PRESENT ILLNESS: Maria C Waggoner is a 34-year-old female status post sleeve gastrectomy, 04/03/19. She is 3 months out. She lost over 70 pounds. No gastroesophageal reflux disease. She stopped taking Omeprazole. She has troubles swallowing her vitamins. She has occasional pain at the left upper quadrant. Her protein intake is subpar. At height of 5 feet 5 inches, her ideal body weight is 149 pounds. Highest weight of 295 pounds, BMI 49.2. Today she comes in 225 pounds from 254 pounds, 2 months ago. She has lost 29 pounds in 2 months. Her body mass index is 37.4. Lifetime weight loss of 70 pounds. Lifetime percent excess weight loss of 48 %. She is 76 pounds overweight. PHYSICAL EXAM: VITAL SIGNS: Height 5 foot 5 inches, weight 225 pounds. BMI 37.4 Vital Signs Temp 97.9 F 07/05/19 13:28 Pulse 73 07/05/19 13:28 Resp 16 07/05/19 13:28 BP 105/76 07/05/19 13:28 Pulse Ox GENERAL: Well-developed in no acute distress. HEENT: No scleral icterus. Extraocular movements grossly intact. Hears conversational speech. No nasal drainage. NECK: Supple without lymphadenopathy. CHEST: Nonlabored respirations with equal bilateral excursions. CARDIOVASCULAR: Distal 2+ pulses. ABDOMEN: Obese, soft. No hernia. MUSCULOSKELETAL: No clubbing, cyanosis. NEURO: No focal or lateralizing signs. Cranial nerves 2 through 12 grossly within normal limits. PSYCH: Appropriate affect. Alert and oriented to person, place and time. SKIN: Good skin turgor. Well perfused. LABS: Platelet is low, AST and ALT is elevated, Total protein is low, Pre- albumin is low, Vitamin A is low, Vitamin B1 is low, PTH is elevated ASSESSMENT: 1. Morbid obesity due to excess calories 2. Body mass index of 49.3, now 37.4 3. Osteoarthritis of the knees. 4. Osteoarthritis of the lower back. 5. Factor V Leiden 6. Gastroesophageal reflux disease 7. DVT extremity 8. Hypertensive heart disease 9. Vitamin D deficiency 10. Gallbladder disorder 11. Fatty liver disease 12. Hiatal hernia 13. Erosive esophagitis 14. Elevated liver enzymes 15. Secondary hyperparathyroidism 16. Vitamin D deficiency 17. Vitamin A deficiency 18. Status post sleeve gastrectomy 19. Thiamine deficiency PLAN: 1. Recommend comprehensive multivitamin with appropriate Vitamin B coverage including iron, over 1000% Vitamin 12 2. At this time, she may stop Omeprazole. 3. [facility] reviewed where she is doing well 4. Recommend bariatric labs reviewed Objective - Vital Signs Vital signs: Vital Signs Temp 97.9 F 07/05/19 13:28 Pulse 73 07/05/19 13:28 Resp 16 07/05/19 13:28 BP 105/76 07/05/19 13:28 Pulse Ox Intake & Output 07/04/19 07/05/19 07/05/19 18:59 06:59 18:59 Weight 102.058 kg
== END | disposition home or self-care (01) ==
LOC: BARWHC3 13:01
PROVIDERS: ATTEND Surgery Plastic and Reconstructive Surgery
DX: Z46.51 Encounter for fitting and adjustment of gastric lap band (principal); E66.01 Morbid (severe) obesity due to excess calories; M17.0 Bilateral primary osteoarthritis of knee; D68.51 Activated protein C resistance; K21.9 Gastro-esophageal reflux disease without esophagitis; I82.409 Acute embolism and thrombosis of unspecified deep veins of unspecified lower extremity; E51.9 Thiamine deficiency, unspecified; K82.9 Disease of gallbladder, unspecified; I11.9 Hypertensive heart disease without heart failure; E55.9 Vitamin D deficiency, unspecified; K76.0 Fatty (change of) liver, not elsewhere classified; K44.9 Diaphragmatic hernia without obstruction or gangrene; K22.10 Ulcer of esophagus without bleeding; N25.81 Secondary hyperparathyroidism of renal origin; E50.9 Vitamin A deficiency, unspecified; Z98.84 Bariatric surgery status; Z68.37 Body mass index [BMI] 37.0-37.9, adult
CPT/HCPCS: 97803; 99211

== ENCOUNTER → 2019-07-26 | Outpatient (CLI) | payer BC ==
[2019-07-26 09:43] LABS: HCT 44.2 % (34.0-46.0); HGB 14.2 gm/dL (11.4-16.0); MCH 29.5 pg (25.0-35.0); MCHC 32.2 g/dL (31.0-37.0); MCV 91.7 fL (80.0-100.0); Mean Platelet Volume 8.7; Platelet Count 123 k/uL (150-450); RBC 4.82 m/uL (3.80-5.40); RDW 13.6 % (11.5-15.5)
[2019-07-26 10:02] LABS: INR 1.2 (<1.2); Partial Thromboplastin Time 30.3 sec (22.0-30.0); Prothrombin Time 12.5 sec (9.0-12.0)
[2019-07-26 16:27] LABS: Folate, Serum 9.7 ng/mL
[2019-07-26 16:44] LABS: % Iron Saturation 43.78 (12.00-45.00); African American GFR (CKD) 112.3 (60.0-200.0); Albumin 4.2 g/dL (3.80-4.90); Albumin/Globulin Ratio 2.1 (1.60-3.17); Anion Gap 7.9 mmol/L (4.00-12.00); BUN/Creat Ratio 13.75 Ratio (12.00-20.00); Calcium 9.3 mg/dL (8.7-10.3); Carbon Dioxide 23.1 mmol/L (21.6-31.8); Chol/HDL Ratio 4.88; Ferritin 423.1 ng/mL (10.0-291.0); LDL Cholesterol,Calculated 136.2 mg/dL (0.0-131.0); Magnesium 1.7 mg/dL (1.5-2.4); Non-African American GFR(CKD) 96.9 (60.0-200.0); Phosphorus 3.8 mg/dL (2.4-5.1); Potassium 4.1 mmol/L (3.5-5.5); Total Bilirubin 0.9 mg/dL (0.3-1.2); Total Protein 6.2 g/dL (6.2-8.2); VLDL Calculation 18.8 mg/dL (5.00-40.00)
[2019-07-26 18:20] LABS: Hemoglobin A1C 4.5 % (4.0-6.0)
[2019-07-27 12:57] LABS: Vit B1(Thiamine) 48 ug/L (38-122)
[2019-07-27 15:01] LABS: Vitamin A 21 ug/dL (38-106)
[2019-07-28 09:03] LABS: Zinc, Serum 74 ug/dL (60-130)
== END | disposition home or self-care (01) ==
LOC: LABWHC1 08:44
PROVIDERS: ATTEND Surgery Plastic and Reconstructive Surgery
DX: E21.1 Secondary hyperparathyroidism, not elsewhere classified (principal); K90.9 Intestinal malabsorption, unspecified; E55.9 Vitamin D deficiency, unspecified; N19 Unspecified kidney failure; K50.90 Crohn's disease, unspecified, without complications; D50.9 Iron deficiency anemia, unspecified; E66.01 Morbid (severe) obesity due to excess calories; E89.1 Postprocedural hypoinsulinemia; K76.9 Liver disease, unspecified
CPT/HCPCS: 36415; 80053; 80061; 82306; 82525; 82607; 82728; 82746; 83036; 83540; 83550; 83735; 83970; 84100; 84134; 84255; 84425; 84443; 84590; 84630; 85027; 85610; 85730

== ENCOUNTER 2019-07-27 01:04 | Emergency (ER) | payer BC ==
[2019-07-27 01:10] VITALS: TEMP 97.7
--- NOTE | 2019-07-27 01:27 | ED ---
Chest Pain HPI - General Chief Complaint: Chest Pain Stated Complaint: Chest Pain Time Seen by Provider: 07/27/19 01:12 Source: patient Mode of arrival: wheelchair Limitations: no limitations - History of Present Illness Initial Comments: This patient is 34-year-old woman presenting to be evaluated for epigastric and substernal chest pain that does radiate to her back. She is concerned about possibility of PE given that she has affect 5 Leiden. She has not had any leg pain or swelling. She is not having significant dyspnea. She is not having cou gh or hemoptysis. No palpitations, lightheadedness or syncope. MD Complaint: chest pain Onset/Timin -: hour(s) Onset: during rest Pain Location: epigastric Pain Radiation: back Severity: moderate Quality: sharp Consistency: constant Improves With: nothing Worsens With: nothing Treatments Prior to Arrival: none - Related Data Home Medications Medication Instructions Recorded Confirmed Rivaroxaban [Xarelto] 10 mg PO DAILY 04/14/19 07/05/19 Previous Rx's Medication Instructions Recorded Omeprazole 40 mg PO DAILY #30 cap 04/04/19 Allergies Allergy/AdvReac Type Severity Reaction Status Date / Time No Known Allergies Allergy Verified 07/27/19 01:10 Review of Systems ROS Statement: Those systems with pertinent positive or pertinent negative responses have been documented in the HPI. ROS Other: All systems not noted in ROS Statement are negative. Constitutional: Denies: fever, chills Respiratory: Denies: cough, dyspnea Cardiovascular: Reports: chest pain. Denies: palpitations Gastrointestinal: Denies: abdominal pain, nausea, vomiting, diarrhea, constipation Genitourinary: Denies: urgency, dysuria, frequency Musculoskeletal: Denies: back pain Skin: Denies: rash Neurological: Denies: headache EKG Findings - EKG Results: EKG: interpreted by DILLAN LARKIN, sinus rhythm (Rate 84 bpm), normal axis, normal QRS, normal ST/T, no acute changes Past Medical History Past Medical History: Blood Disorder, Deep Vein Thrombosis (DVT), GERD/Reflux, Liver Disease Additional Past Medical History / Comment(s): Factor 5 Leiden Disorder, multiple DVT's, Fatty Liver, Migraines. Gastric sleeve 04/03/1019 History of Any Multi-Drug Resistant Organisms: None Reported Past Surgical History: Appendectomy, Bariatric Surgery, Section, Tubal Ligation Additional Past Surgical History / Comment(s): section x 2, Sylva teeth removed, IVC filter placement and removal. sleeve gastrectomy 04-03-19 Past Anesthesia/Blood Transfusion Reactions: No Reported Reaction Past Psychological History: No Psychological Hx Reported Smoking Status: Former smoker Past Alcohol Use History: Occasional Past Drug Use History: None Reported - Past Family History Mother Family Medical History: Cancer, Diabetes Mellitus, Thyroid Disorder General Exam Limitations: no limitations General appearance: alert, in no apparent distress Head exam: Present: atraumatic, normocephalic Eye exam: Present: normal appearance. Absent: scleral icterus, conjunctival injection ENT exam: Present: normal oropharynx Neck exam: Present: normal inspection Respiratory exam: Present: normal lung sounds bilaterally. Absent: respiratory distress, wheezes, rales, rhonchi, stridor, chest wall tenderness Cardiovascular Exam: Present: regular rate, normal rhythm, normal heart sounds. Absent: systolic murmur, diastolic murmur, rubs, gallop GI/Abdominal exam: Present: soft. Absent: distended, tenderness, guarding, rebound, rigid, mass, pulsatile mass Extremities exam: Present: normal inspection, normal capillary refill. Absent: pedal edema, calf tenderness Back exam: Present: normal inspection. Absent: CVA tenderness (R), CVA tenderness (L) Neurological exam: Present: alert Skin exam: Present: warm, dry, intact, normal color. Absent: rash Course Vital Signs 07/27/19 07/27/19 07/27/19 01:06 01:40 01:52 Temperature 97.7 F Pulse Rate 86 83 64 Respiratory 20 17 Rate Blood Pressure 107/69 100/69 O2 Sat by Pulse 100 98 99 Oximetry 07/27/19 07/27/19 07/27/19 02:00 02:20 03:00 Temperature Pulse Rate 59 L 77 Respiratory 17 17 Rate Blood Pressure 103/71 103/70 98/67 O2 Sat by Pulse 99 100 Oximetry Disposition Clinical Impression: Chest pain Disposition: HOME SELF-CARE Condition: Good Instructions (If sedation given, give patient instructions): Chest Pain (ED) Is patient prescribed a controlled substance at d/c from ED?: No Referrals: Anay Del Real MD [Primary Care Provider] - 1-2 days
[2019-07-27 01:46] LABS: Basophils % (A) 0 %; Eosinophils # (A) 0.1 k/uL (0-0.7); Eosinophils % (A) 2 %; HCT 42.9 % (34.0-46.0); HGB 14.3 gm/dL (11.4-16.0); Lymphocytes # (A) 1.4 k/uL (1.0-4.8); Lymphocytes % (A) 26 %; MCH 30.2 pg (25.0-35.0); MCHC 33.4 g/dL (31.0-37.0); MCV 90.3 fL (80.0-100.0); Mean Platelet Volume 8.3; Monocytes # (A) 0.3 k/uL (0-1.0); Monocytes % (A) 5 %; Neutrophils # (A) 3.5 k/uL (1.3-7.7); Neutrophils % (A) 65 %; Platelet Count 108 k/uL (150-450); RBC 4.75 m/uL (3.80-5.40); RDW 13.5 % (11.5-15.5); WBC 5.4 k/uL (3.8-10.6)
[2019-07-27 01:50] VITALS: RESP 17
[2019-07-27 01:55] LABS: ALT 45 U/L (4-34); AST 124 U/L (14-36); African American GFR (CKD) >90 (>60 ml/min/1.73 sqM); Alkaline Phosphatase 57 U/L (38-126); Anion Gap 8 mmol/L; Blood Urea Nitrogen 14 mg/dL (7-17); Calcium 9.4 mg/dL (8.4-10.2); Carbon Dioxide 22 mmol/L (22-30); Chloride 106 mmol/L (98-107); Glucose 93 mg/dL (74-99); Magnesium 1.7 mg/dL (1.6-2.3); Non-African American GFR(CKD) >90 (>60 ml/min/1.73 sqM); Potassium 3.5 mmol/L (3.5-5.1); Sodium 136 mmol/L (137-145); Total Bilirubin 1.7 mg/dL (0.2-1.3); Total Protein 6.9 g/dL (6.3-8.2)
[2019-07-27 02:01] LABS: INR 1.1 (<1.2); Partial Thromboplastin Time 25.2 sec (22.0-30.0)
[2019-07-27 02:08] LABS: D-Dimer 0.8 mg/L FEU (<0.60)
--- NOTE | 2019-07-27 02:33 | CT ---
EXAMINATION TYPE: CT chest angio for PE DATE OF EXAM: 07/27/2019 COMPARISON: 04/05/2019 HISTORY: Chest pain CT DLP: 824.5 mGycm Automated exposure control for dose reduction was used. CONTRAST: Performed with IV Contrast, patient injected with 100 mL of Isovue 370. Multiple axial sections were obtained from the thoracic inlet to the diaphragm with intravenous contr ast. There are 3-D post processed images. The lungs are clear of infiltrate. There is no evidence of a pulmonary mass. There is no pleural effu kashif. There is no pericardial effusion. Upper abdominal soft tissues are intact. There are no hilar masses. There is no mediastinal adenopathy. I see no definite filling defects in t he pulmonary arteries. Thoracic aorta is intact. Pulmonary arteries have normal size. Thoracic spine is intact. The ribs appear intact. IMPRESSION: Negative exam. No evidence of pulmonary embolism.
[2019-07-27] MEDS ORDERED: MORPHINE SULFATE 4 MG/ML SYRINGE IV STA (02:55)
[2019-07-27 03:01] VITALS: BP 98/67; PULSE 77
[2019-07-27] MEDS ORDERED: MAG HYDROX/AL HYDROX/SIMETH 30 ML, HYOSCYAMINE ELIXIR 10 ML, LIDOCAINE VISCOUS 2% 10 ML PO ONE ×3 (03:30)
[2019-07-27] MEDS ORDERED: MAG HYDROX/AL HYDROX/SIMETH 30 ML CUP ONE (03:39)
[2019-07-27] MEDS ORDERED: HYOSCYAMINE ELIXIR 250 MCG/10 ML BTL ONE (03:39)
[2019-07-27] MEDS ORDERED: LIDOCAINE VISCOUS 2% 15 ML CUP ONE (03:39)
== END 2019-07-27 04:14 | disposition home or self-care (01) ==
LOC: EC 01:04
DX: R07.9 Chest pain, unspecified (principal); R10.13 Epigastric pain; Z79.01 Long term (current) use of anticoagulants; Z87.891 Personal history of nicotine dependence; Z98.84 Bariatric surgery status; Z86.718 Personal history of other venous thrombosis and embolism
CPT/HCPCS: 36415; 93005; 85379; 80053; 83735; 84484; 85025; 85610; 85730; 71275; 99285; 96374; J2270; Q9967

== ENCOUNTER → 2019-08-07 | Outpatient (CLI) | payer BC ==
--- NOTE | 2019-08-07 15:24 | US ---
EXAMINATION TYPE: US gallbladder DATE OF EXAM: 08/07/2019 COMPARISON: US 09/26/2018 CLINICAL HISTORY: R10 Abdominal pain. ABD pain EXAM MEASUREMENTS: Liver Length: 11.3 cm Gallbladder Wall: 0.2 cm CBD: 0.2 cm Right Kidney: 10.7 x 5.8 x 5.1 cm Large pt body habitus, difficult exam Pancreas: Body wnl, head and tail obscured by overlying bowel gas Liver: Mildly coarsened hepatic echotexture as seen on the prior. Gallbladder: wnl Evidence for sonographic Matute's sign: No CBD: wnl Right Kidney: wnl IMPRESSION: No sonographic evidence of cholelithiasis nor acute cholecystitis. Mildly coarsened hepat ic echotexture is similar to the prior and could relate to early hepatic steatosis or other hepatocel lular disease.
== END | disposition home or self-care (01) ==
LOC: RADUSWWP 13:53
PROVIDERS: ATTEND Surgery Plastic and Reconstructive Surgery
DX: R93.2 Abnormal findings on diagnostic imaging of liver and biliary tract (principal); R10.84 Generalized abdominal pain
CPT/HCPCS: 76705

== ENCOUNTER → 2019-08-16 | Outpatient (CLI) | payer BC ==
--- NOTE | 2019-08-17 06:29 | MR ---
EXAMINATION TYPE: MR knee LT wo con DATE OF EXAM: 08/16/2019 COMPARISON: Outside knee x-ray August 01, 2019. HISTORY: Lt knee pain per order. Pain locking and swelling since injury 2017 per patient. TECHNIQUE: Multiplanar, multisequence images of the knee is performed without IV contrast. FINDINGS: MEDIAL MENISCUS: Anterior and posterior horns are intact without tear. LATERAL MENISCUS: Anterior and posterior horns are intact without tear. CRUCIATE LIGAMENTS: The anterior and posterior cruciate ligaments are intact and unremarkable. COLLATERAL LIGAMENTS: The medial collateral ligament and lateral collateral ligament complex are inta ct and unremarkable. EXTENSOR MECHANISM: Visualized quadriceps and patellar tendons are intact. EFFUSION: No significant suprapatellar joint effusion. POPLITEAL CYST: No popliteal/brown cyst. TRICOMPARTMENT SPACES: Tricompartment joint spaces are fairly well-maintained. No significant spurrin g. CARTILAGE: Tricompartmental articular cartilage is preserved. No significant chondromalacia patella. BONE MARROW SIGNAL: No focal abnormal marrow signal is appreciated. OTHER: No additional significant abnormality is appreciated. IMPRESSION: No meniscal or ligamentous tear is seen. Fairly unremarkable study.
== END | disposition home or self-care (01) ==
LOC: RADMRIMAIN 19:41
PROVIDERS: ATTEND Orthopaedic Surgery
DX: M25.562 Pain in left knee (principal)

== ENCOUNTER → 2019-10-18 | Outpatient (CLI) | payer BC ==
--- NOTE | 2019-10-18 16:08 | P.PN ---
Subjective Progress Note Date: 10/18/19 DATE OF SERVICE: 10/18/2019 CHIEF COMPLAINT: Sleeve gastrectomy HISTORY OF PRESENT ILLNESS: Maria C Waggoner is a 34-year-old female status post sleeve gastrectomy, 04/03/19. She is 6 months out. She has lost 100 pounds. She is grieving the loss of her mother who recently during the pandemic. She presents with panniculitis. She has hair loss. Her protein intake is less than 75 grams. She is getting knee surgery. She reports return of normal menstrual cycles with previous history of polycystic ovarian syndrome. She reports epigastric abdominal pain secondary to gallbladder disorder. She reports resolution of her gastroesophageal reflux disease. At height of 5 feet 5 inches, her ideal body weight is 149 pounds. Highest weight of 295 pounds, BMI 49.2. Today she comes in 195 pounds from 225 pounds, 3 months ago. She has lost 30 pounds in 2 months. Her body mass index is 32.4. Lifetime weight loss of 100 pounds. Lifetime percent excess weight loss of 69 %. She is 46 pounds overweight. PAST MEDICAL HISTORY: 1. Morbid obesity due to excess calories 2. Body mass index of 49.1, initial 3. Osteoarthritis of the knees. 4. Osteoarthritis of the lower back. 5. Factor V Leiden 6. Gastroesophageal reflux disease 7. DVT extremity 8. Hypertensive heart disease 9. Vitamin D deficiency PAST SURGICAL HISTORY: 1. Appendectomy 2. section 3. Tubal ligation HOME MEDICATIONS: ALLERGIES: Home Medications Medication Instructions Recorded Confirmed Rivaroxaban [Xarelto] 10 mg PO DAILY 04/14/19 07/05/19 Previous Rx's Medication Instructions Recorded Omeprazole 40 mg PO DAILY #30 cap 04/04/19 SOCIAL HISTORY: Past tobacco use. FAMILY HISTORY: No family history of ulcerative colitis disease or Crohn's disease. Family history of morbid obesity. No lupus in the family. No reports of stomach or esophageal cancer. REVIEW OF ORGAN SYSTEMS: CONSTITUTIONAL: At height of 5 feet 5 inches, her ideal body weight is 149 pounds. She comes in 294 pounds. Her body mass index is 49.1. She is 145 pounds overweight. HEENT: Denies any active troubles with vision or hearing. ENDOCRINE: No diabetes. No hypothyroidism. CARDIOVASCULAR: No past reports of palpitations or heart attacks or chest pain. Past blood clots. RESPIRATORY: No asthma. No sleep apnea. GASTROINTESTINAL: Denies any bright red blood per rectum. No diarrhea. No constipation. Has GERD. MUSCULOSKELETAL: Has lower back pain and joint pain. Has osteoarthritis of the knees. NEURO: No headaches. No seizure disorders. PSYCH: No depression. No suicidal ideation. RHEUMATOLOGIC: No lupus. No rheumatoid arthritis. HEMATOLOGIC: Denies any abnormal bleeding or bruising. Personal history of DVTs. On anticoagulant. SKIN: No rash. No skin cancer. PHYSICAL EXAM: VITAL SIGNS: Height 5 foot 5 inches, weight 195 pounds. BMI 32.4 Vital Signs Temp 98.9 F 10/18/19 16:25 Pulse 111 H 10/18/19 16:25 Resp BP 121/81 10/18/19 16:25 Pulse Ox GENERAL: Well-developed in no acute distress. HEENT: No scleral icterus. Extraocular movements grossly intact. Hears conversational speech. No nasal drainage. NECK: Supple without lymphadenopathy. CHEST: Nonlabored respirations with equal bilateral excursions. CARDIOVASCULAR: Tachycardic, distant 2+ pulses ABDOMEN: Obese, soft. MUSCULOSKELETAL: No clubbing, cyanosis. NEURO: No focal or lateralizing signs. Cranial nerves 2 through 12 grossly within normal limits. PSYCH: Appropriate affect. Alert and oriented to person, place and time. SKIN: Good skin turgor. Well perfused. LABS: Reviewed. WBC low 3.0, platelet low 123, ferritin elevated 423, prealbumin low 12.0, vitamin A low 21.0 STUDIES: Ultrasound of the gallbladder independently reviewed with findings consistent with fatty liver disease. No large gallstones identified. ASSESSMENT: 1. Morbid obesity due to excess calories 2. Body mass index of 49.3, now 32.4 3. Osteoarthritis of the knees. 4. Osteoarthritis of the lower back. 5. Factor V Leiden 6. Gastroesophageal reflux disease 7. DVT extremity 8. Hypertensive heart disease 9. Vitamin D deficiency 10. Gallbladder disorder 11. Fatty liver disease 12. Hiatal hernia 13. Erosive esophagitis 14. Elevated liver enzymes 15. Secondary hyperparathyroidism 16. Vitamin D deficiency 17. Vitamin A deficiency 18. Status post sleeve gastrectomy 19. Inadequate protein intake 20. Polycystic ovarian syndrome 21. Panniculitis 22. Gallbladder disorder PLAN: 1. She is due for bariatric labs. 2. Nystatin powder prescribed for panniculitis. 3. Recommend cholecystectomy for gallbladder disorder 4. May discontinue omeprazole for gastroesophageal reflux disease as her symptoms have resolved
[2019-10-18 16:28] VITALS: BP 121/81; PULSE 111; TEMP 98.9; BMI 32.4
== END | disposition home or self-care (01) ==
LOC: BARWHC3 15:31
PROVIDERS: ATTEND Surgery Plastic and Reconstructive Surgery
DX: E66.01 Morbid (severe) obesity due to excess calories (principal); Z68.32 Body mass index [BMI] 32.0-32.9, adult; M17.9 Osteoarthritis of knee, unspecified; M47.816 Spondylosis without myelopathy or radiculopathy, lumbar region; D68.51 Activated protein C resistance; K21.9 Gastro-esophageal reflux disease without esophagitis; I82.409 Acute embolism and thrombosis of unspecified deep veins of unspecified lower extremity; I11.9 Hypertensive heart disease without heart failure; E55.9 Vitamin D deficiency, unspecified; K82.8 Other specified diseases of gallbladder; K76.0 Fatty (change of) liver, not elsewhere classified; K44.9 Diaphragmatic hernia without obstruction or gangrene; K22.10 Ulcer of esophagus without bleeding; R94.5 Abnormal results of liver function studies; N25.81 Secondary hyperparathyroidism of renal origin; E50.9 Vitamin A deficiency, unspecified; E28.2 Polycystic ovarian syndrome; M79.3 Panniculitis, unspecified; Z98.84 Bariatric surgery status; E44.1 Mild protein-calorie malnutrition; Z87.891 Personal history of nicotine dependence; Z90.89 Acquired absence of other organs; Z98.51 Tubal ligation status; Z79.899 Other long term (current) drug therapy
CPT/HCPCS: 97803; 99211

== ENCOUNTER → 2019-10-24 | Outpatient (CLI) | payer BC ==
[2019-10-24 12:10] LABS: HCT 42.2 % (34.0-46.0); HGB 13.9 gm/dL (11.4-16.0); MCH 31.3 pg (25.0-35.0); MCHC 32.9 g/dL (31.0-37.0); MCV 94.9 fL (80.0-100.0); Mean Platelet Volume 7.5; Platelet Count 140 k/uL (150-450); RBC 4.45 m/uL (3.80-5.40)
[2019-10-24 12:26] LABS: INR 1.1 (<1.2); Partial Thromboplastin Time 23.6 sec (22.0-30.0); Prothrombin Time 10.8 sec (9.0-12.0)
[2019-10-24 19:28] LABS: Ferritin 298.8 ng/mL (10.0-291.0); Hemoglobin A1C 4.2 % (4.0-6.0)
[2019-10-24 19:35] LABS: % Iron Saturation 30.55 (12.00-45.00); African American GFR (CKD) 131.9 (60.0-200.0); Albumin 3.8 g/dL (3.80-4.90); Albumin/Globulin Ratio 1.73 (1.60-3.17); Anion Gap 8.3 mmol/L (4.00-12.00); BUN/Creat Ratio 18.57 Ratio (12.00-20.00); Calcium 9.6 mg/dL (8.7-10.3); Carbon Dioxide 26.7 mmol/L (21.6-31.8); Chol/HDL Ratio 3.91; Folate, Serum 19.1 ng/mL; Globulin 2.2 g/dL (1.6-3.3); LDL Cholesterol,Calculated 117.8 mg/dL (0.0-131.0); Magnesium 1.9 mg/dL (1.5-2.4); Non-African American GFR(CKD) 113.8 (60.0-200.0); Phosphorus 3.6 mg/dL (2.4-5.1); Potassium 4.6 mmol/L (3.5-5.5); Total Bilirubin 0.8 mg/dL (0.3-1.2); VLDL Calculation 16.2 mg/dL (5.00-40.00)
[2019-10-25 12:29] LABS: Vitamin A 31 ug/dL (38-106)
[2019-10-26 06:56] LABS: Vit B1(Thiamine) 46 ug/L (38-122)
== END | disposition home or self-care (01) ==
LOC: LABWHC1 10:51
PROVIDERS: ATTEND Surgery Plastic and Reconstructive Surgery
DX: E21.1 Secondary hyperparathyroidism, not elsewhere classified (principal); E89.1 Postprocedural hypoinsulinemia; D50.9 Iron deficiency anemia, unspecified; K90.9 Intestinal malabsorption, unspecified; E55.9 Vitamin D deficiency, unspecified; K74.1 Hepatic sclerosis; K50.90 Crohn's disease, unspecified, without complications; N19 Unspecified kidney failure
CPT/HCPCS: 36415; 80053; 80061; 82306; 82525; 82607; 82728; 82746; 83036; 83540; 83550; 83735; 83970; 84100; 84134; 84255; 84425; 84443; 84590; 84630; 85027; 85610; 85730

== ENCOUNTER → 2020-01-17 | Outpatient (CLI) | payer BC ==
[2020-01-17 16:14] VITALS: BP 111/71; PULSE 69; RESP 18; TEMP 98.4; BMI 30.6
--- NOTE | 2020-01-17 16:52 | P.PN ---
Subjective Progress Note Date: 01/17/20 Had need knee surgery in September 2019. She has lost 100+ pounds. She is due for labs. She is looking for skin removal. She is 9 months out. Labs and plastic described Objective - Vital Signs Vital signs: Vital Signs Temp 98.4 F 01/17/20 16:04 Pulse 69 01/17/20 16:04 Resp 18 01/17/20 16:04 BP 111/71 01/17/20 16:04 Pulse Ox 99 01/17/20 16:04 Intake & Output 01/16/20 01/17/20 01/17/20 18:59 06:59 18:59 Weight 83.416 kg
== END | disposition home or self-care (01) ==
LOC: BARWHC3 15:42
PROVIDERS: ATTEND Surgery Plastic and Reconstructive Surgery
DX: E66.01 Morbid (severe) obesity due to excess calories (principal); Z68.30 Body mass index [BMI] 30.0-30.9, adult; Z98.890 Other specified postprocedural states
CPT/HCPCS: 97803; 99211

== ENCOUNTER → 2020-03-21 | Outpatient (CLI) | payer BC | END | disposition home or self-care (01) | LOC: LABWHC1 13:38 | PROVIDERS: ATTEND Surgery Plastic and Reconstructive Surgery | DX: Z53.9 Procedure and treatment not carried out, unspecified reason (principal) ==

== ENCOUNTER → 2020-03-27 | Outpatient (CLI) | payer BC ==
[2020-03-27 11:43] LABS: HGB 13.8 gm/dL (11.4-16.0); MCH 30.5 pg (25.0-35.0); MCHC 32.1 g/dL (31.0-37.0); MCV 94.9 fL (80.0-100.0); Mean Platelet Volume 7.2; Platelet Count 140 k/uL (150-450); RBC 4.52 m/uL (3.80-5.40); RDW 13.1 % (11.5-15.5); WBC 3.7 k/uL (3.8-10.6)
[2020-03-27 12:40] LABS: Partial Thromboplastin Time 24.1 sec (22.0-30.0); Prothrombin Time 10.7 sec (9.0-12.0)
[2020-03-27 20:34] LABS: % Iron Saturation 28.08 (12.00-45.00); African American GFR (CKD) 111.5 (60.0-200.0); Albumin/Globulin Ratio 1.82 (1.60-3.17); Anion Gap 5.8 mmol/L (4.00-12.00); BUN/Creat Ratio 23.75 Ratio (12.00-20.00); Calcium 9.2 mg/dL (8.7-10.3); Carbon Dioxide 26.2 mmol/L (21.6-31.8); Chol/HDL Ratio 2.88; Ferritin 354.4 ng/mL (10.0-291.0); Globulin 2.2 g/dL (1.6-3.3); LDL Cholesterol,Calculated 90.4 mg/dL (0.0-131.0); Magnesium 1.9 mg/dL (1.5-2.4); Non-African American GFR(CKD) 96.2 (60.0-200.0); Phosphorus 3.7 mg/dL (2.4-5.1); Potassium 4.3 mmol/L (3.5-5.5); Total Bilirubin 0.6 mg/dL (0.3-1.2); Total Protein 6.2 g/dL (6.2-8.2); VLDL Calculation 20.6 mg/dL (5.00-40.00)
[2020-03-27 20:43] LABS: Folate, Serum 12.9 ng/mL
[2020-03-27 21:05] LABS: Hemoglobin A1C 4.7 % (4.0-6.0)
[2020-03-28 11:30] LABS: Zinc, Serum 73 ug/dL (60-130)
[2020-03-29 07:28] LABS: Vit B1(Thiamine) 51 ug/L (38-122)
[2020-03-29 07:34] LABS: Vitamin A 35 ug/dL (38-106)
== END | disposition home or self-care (01) ==
LOC: LABWHC1 10:14
PROVIDERS: ATTEND Surgery Plastic and Reconstructive Surgery
DX: E21.1 Secondary hyperparathyroidism, not elsewhere classified (principal); E89.1 Postprocedural hypoinsulinemia; E55.9 Vitamin D deficiency, unspecified; D50.9 Iron deficiency anemia, unspecified; K90.9 Intestinal malabsorption, unspecified; K74.1 Hepatic sclerosis; K50.90 Crohn's disease, unspecified, without complications; N19 Unspecified kidney failure
CPT/HCPCS: 36415; 80053; 80061; 82306; 82525; 82607; 82728; 82746; 83036; 83540; 83550; 83735; 83970; 84100; 84134; 84255; 84425; 84443; 84590; 84630; 85027; 85610; 85730

== ENCOUNTER → 2020-04-03 | Outpatient (CLI) | payer BC ==
[2020-04-03 13:58] VITALS: BP 117/75; PULSE 67; RESP 16; TEMP 98.2; BMI 29.1
--- NOTE | 2020-04-03 14:48 | P.PN ---
Subjective Progress Note Date: 04/03/20 DATE OF SERVICE: 04/03/2020 CHIEF COMPLAINT: Sleeve gastrectomy HISTORY OF PRESENT ILLNESS: Maria C Waggoner is a 35-year-old female status post sleeve gastrectomy, 04/03/19. Today is her anniversary. She has lost 130 pounds. She reports no belly pain. No food is getting stuck. She reports choking on water. She has lost moderate weight. She gave away her old clothes. She presents for follow-up. At height of 5 feet 5 inches, her ideal body weight is 149 pounds. Highest weight of 295 pounds, BMI 49.2. Today she comes in 175 pounds from 184 pounds, 3 months ago. She has lost 9 pounds in 3 months. Her body mass index is 29.1. Lifetime weight loss of 120 pounds. Lifetime percent excess weight loss of 82 %. She is 26 pounds overweight. PHYSICAL EXAM: VITAL SIGNS: Height 5 foot 5 inches, weight 175 pounds. BMI 29.1 Vital Signs Temp 98.2 F 04/03/20 13:55 Pulse 67 04/03/20 13:55 Resp 16 04/03/20 13:55 BP 117/75 04/03/20 13:55 Pulse Ox GENERAL: Well-developed in no acute distress. HEENT: No scleral icterus. Extraocular movements grossly intact. Hears conversational speech. No nasal drainage. NECK: Supple without lymphadenopathy. CHEST: Nonlabored respirations with equal bilateral excursions. CARDIOVASCULAR: Tachycardic, distant 2+ pulses ABDOMEN: Obese, soft. MUSCULOSKELETAL: No clubbing, cyanosis. NEURO: No focal or lateralizing signs. Cranial nerves 2 through 12 grossly within normal limits. PSYCH: Appropriate affect. Alert and oriented to person, place and time. SKIN: Good skin turgor. Well perfused. LABS: Reviewed. Platelets is low. Pre-albumin is low. Vitamin A is low. ASSESSMENT: 1. Morbid obesity due to excess calories 2. Body mass index of 49.3, now 30.6 3. Osteoarthritis of the knees. 4. Osteoarthritis of the lower back. 5. Factor V Leiden 6. Gastroesophageal reflux disease 7. DVT extremity 8. Hypertensive heart disease 9. Vitamin D deficiency 10. Gallbladder disorder 11. Fatty liver disease 12. Hiatal hernia 13. Erosive esophagitis 14. Elevated liver enzymes 15. Secondary hyperparathyroidism 16. Vitamin D deficiency 17. Vitamin A deficiency 18. Status post sleeve gastrectomy 19. Inadequate protein intake 20. Polycystic ovarian syndrome 21. Panniculitis 22. Zinc deficiency PLAN: 1. Recommend Vitamin A 8000 units daily. 2. Recommend protein intake over 75 grams daily. Objective - Vital Signs Vital signs: Vital Signs Temp 98.2 F 04/03/20 13:55 Pulse 67 04/03/20 13:55 Resp 16 04/03/20 13:55 BP 117/75 04/03/20 13:55 Pulse Ox Intake & Output 04/02/20 04/03/20 04/03/20 18:59 06:59 18:59 Weight 79.379 kg
== END | disposition home or self-care (01) ==
LOC: BARWHC3 13:39
PROVIDERS: ATTEND Surgery Plastic and Reconstructive Surgery
DX: Z48.815 Encounter for surgical aftercare following surgery on the digestive system (principal); E66.01 Morbid (severe) obesity due to excess calories; M17.0 Bilateral primary osteoarthritis of knee; D68.51 Activated protein C resistance; K21.9 Gastro-esophageal reflux disease without esophagitis; I82.409 Acute embolism and thrombosis of unspecified deep veins of unspecified lower extremity; I11.9 Hypertensive heart disease without heart failure; E55.9 Vitamin D deficiency, unspecified; K82.9 Disease of gallbladder, unspecified; K76.0 Fatty (change of) liver, not elsewhere classified; K44.9 Diaphragmatic hernia without obstruction or gangrene; R94.5 Abnormal results of liver function studies; K22.10 Ulcer of esophagus without bleeding; N25.81 Secondary hyperparathyroidism of renal origin; E50.9 Vitamin A deficiency, unspecified; E63.8 Other specified nutritional deficiencies; E28.2 Polycystic ovarian syndrome; M79.3 Panniculitis, unspecified; E60 Dietary zinc deficiency; Z98.84 Bariatric surgery status; Z68.30 Body mass index [BMI] 30.0-30.9, adult
CPT/HCPCS: 97803; 99211

== ENCOUNTER → 2020-07-30 | Outpatient (CLI) | payer BC ==
[2020-07-30 19:15] LABS: HCT 40.8 % (37.2-46.3); HGB 13.4 g/dL (12.0-15.0); MCH 30.6 pg (27.0-32.0); MCHC 32.8 g/dL (32.0-37.0); MCV 93.2 fL (80.0-97.0); Mean Platelet Volume 10.4 fL (9.5-12.2); Platelet Count 162 X 10*3/uL (140-440); RBC 4.38 X 10*6/uL (4.10-5.20); RDW 12.3 % (11.5-14.5); WBC 4.16 X 10*3/uL (4.50-10.00)
[2020-07-30 20:33] LABS: Hemoglobin A1C 4.5 % (4.0-6.0)
[2020-07-30 22:16] LABS: Partial Thromboplastin Time 26.2 sec (23.5-31.0); Prothrombin Time 10.9 sec (9.9-11.9)
[2020-07-30 23:54] LABS: % Iron Saturation 35.59 (12.00-45.00); African American GFR (CKD) 111.5 (60.0-200.0); Albumin/Globulin Ratio 1.18 (1.60-3.17); Anion Gap 5.4 mmol/L (4.00-12.00); Calcium 9.5 mg/dL (8.7-10.3); Carbon Dioxide 26.6 mmol/L (21.6-31.8); Chol/HDL Ratio 2.68; Folate, Serum 12.5 ng/mL; Globulin 3.4 g/dL (1.6-3.3); Magnesium 1.9 mg/dL (1.5-2.4); Non-African American GFR(CKD) 96.2 (60.0-200.0); Phosphorus 3.6 mg/dL (2.4-5.1); Potassium 4.2 mmol/L (3.5-5.5); Total Bilirubin 0.8 mg/dL (0.3-1.2); Total Protein 7.4 g/dL (6.2-8.2)
[2020-07-31 13:08] LABS: Zinc, Serum 64 ug/dL (60-130)
[2020-08-01 07:00] LABS: Vitamin A 28 ug/dL (38-106)
[2020-08-01 07:21] LABS: Vit B1(Thiamine) 57 ug/L (38-122)
[2020-08-02 01:34] LABS: Selenium 116 mcg/L (63-160)
== END | disposition home or self-care (01) ==
LOC: LABWHC1 10:16
PROVIDERS: ATTEND Surgery Plastic and Reconstructive Surgery
DX: E66.01 Morbid (severe) obesity due to excess calories (principal); E89.1 Postprocedural hypoinsulinemia; D50.8 Other iron deficiency anemias; K90.89 Other intestinal malabsorption; E44.0 Moderate protein-calorie malnutrition; E55.9 Vitamin D deficiency, unspecified; K74.1 Hepatic sclerosis; N19 Unspecified kidney failure; K50.90 Crohn's disease, unspecified, without complications
CPT/HCPCS: 36415; 80053; 80061; 82306; 82525; 82607; 82746; 83036; 83540; 83550; 83735; 83970; 84100; 84134; 84255; 84425; 84443; 84590; 84630; 85027; 85610; 85730

== ENCOUNTER 2020-08-04 18:17 | Emergency (ER) | payer BC ==
[2020-08-04 18:28] VITALS: TEMP 97.9
[2020-08-04] MEDS ORDERED: SODIUM CHLORIDE 0.9% 1,000 ML IV ONE (19:27)
[2020-08-04] MEDS ORDERED: MECLIZINE 12.5 MG TAB PO STA (19:27)
--- NOTE | 2020-08-04 19:30 | ED ---
Dizziness HPI - General Chief Complaint: Dizziness Stated Complaint: Dizziness,Low BP Time Seen by Provider: 08/04/20 18:43 Source: patient Mode of arrival: wheelchair Limitations: no limitations - History of Present Illness Initial Comments: Maria C is a 35-year-old female with a history of gastric past surgery who presents the ER today for evaluation of 1 week of lightheadedness dizziness which she describes more as being lightheaded and generalized fatigue. Patient contacted her bariatric surgeon about this and had blood work drawn she has not been called with any results doesn't believe anything was critical. She states that she's been trying to drink fluids today but believe she is just dehydrated. She states she has had a visit her surgeon's office 4 times in the past one year since her surgery for treatment of dehydration. - Related Data Home Medications Medication Instructions Recorded Confirmed Rivaroxaban [Xarelto] 20 mg PO DAILY 04/14/19 04/03/20 Sertraline [Zoloft] 50 mg PO DAILY 04/03/20 04/03/20 Previous Rx's Medication Instructions Recorded Meclizine [Antivert] 12.5 mg PO Q6H #12 tablet 08/04/20 Allergies Allergy/AdvReac Type Severity Reaction Status Date / Time No Known Allergies Allergy Verified 04/03/20 15:04 Review of Systems ROS Statement: Those systems with pertinent positive or pertinent negative responses have been documented in the HPI. ROS Other: All systems not noted in ROS Statement are negative. Past Medical History Past Medical History: Blood Disorder, Deep Vein Thrombosis (DVT), GERD/Reflux, Liver Disease Additional Past Medical History / Comment(s): Factor 5 Leiden Disorder, multiple DVT's, Fatty Liver, Migraines. Gastric sleeve 04/03/1019 History of Any Multi-Drug Resistant Organisms: None Reported Past Surgical History: Appendectomy, Bariatric Surgery, Section, Orthopedic Surgery, Tubal Ligation Additional Past Surgical History / Comment(s): section x 2, [place] teeth removed, IVC filter placement and removal. sleeve gastrectomy 04-03-19; left knee surgery september 2019 Past Anesthesia/Blood Transfusion Reactions: No Reported Reaction Past Psychological History: No Psychological Hx Reported Smoking Status: Never smoker Past Alcohol Use History: Occasional Past Drug Use History: None Reported - Past Family History Mother Family Medical History: Cancer, Diabetes Mellitus, Thyroid Disorder General Exam - General Exam Comments Initial Comments: Physical Exam GENERAL: Patient is well-developed and well-nourished. Patient is nontoxic and well-hydrated and is in no distress. HENT: Normocephalic, Atraumatic. EYES: PERRL, EOMI PULMONARY: Unlabored respirations. CARDIOVASCULAR: RRR Warm and well perfused extremities ABDOMEN: Non-distended SKIN: No rashes or bruising : Deferred NEUROLOGIC: Alert and oriented Normal speech Normal gait MUSCULOSKELETAL: Moving all extremities with no apparent injury PSYCHIATRIC: No SI/HI Limitations: no limitations Course Vital Signs 08/04/20 18:26 Temperature 97.9 F Pulse Rate 56 L Respiratory 16 Rate Blood Pressure 109/75 O2 Sat by Pulse 100 Oximetry EKG Findings - EKG Comments: EKG Findings:: KG was obtained due to bradycardia EKG was obtained 1935 rate is 48 rhythm is sinus bradycardia normal axis, normal intervals. NV is 140, QRS 82 QTc 403 there are no acute ST elevations or depressions no evidence of acute ischemia infarction or malignant arrhythmia. Medical Decision Making - Medical Decision Making Patient was seen and evaluated history is obtained from the patient and review of medical record Patient with lightheadedness for over one week has seen her general surgeon about this had labs checked uncertain of the results IV was established patient was given IV fluids and a dose of meclizine and she does seem to have some BPPV like symptoms Patient received IV fluids and meclizine. Dizziness was improved to sitting up comfortably in bed. Reported some musculoskeletal chest wall pain that is likely secondary to how she was laying in the hospital bed. He does better when she presses on the chest worse when laying on that side. At this time I do feel the patient is stable for discharge home I did advise her that she has vitamin D deficiency as well as vitamin A deficiency. Recommended her supplement this and discuss with her bariatric surgeon All questions pertaining care were answered return parameters were discussed and patient was discharged home in stable condition Disposition Clinical Impression: Dehydration Disposition: HOME SELF-CARE Condition: Stable Instructions (If sedation given, give patient instructions): Dizziness (ED) Prescriptions: Meclizine [Antivert] 12.5 mg PO Q6H #12 tablet Is patient prescribed a controlled substance at d/c from ED?: No Referrals: Anay Del Real MD [Primary Care Provider] - 1-2 days
[2020-08-04 21:02] VITALS: BP 97/69; PULSE 47; RESP 19
== END 2020-08-04 21:01 | disposition home or self-care (01) ==
LOC: EC 18:17
DX: E86.0 Dehydration (principal); Z86.718 Personal history of other venous thrombosis and embolism; Z90.49 Acquired absence of other specified parts of digestive tract; Z98.51 Tubal ligation status
CPT/HCPCS: 93005; 96360; 96361; 99284

== ENCOUNTER → 2020-08-15 | Outpatient (CLI) | payer BC ==
--- NOTE | 2020-08-26 10:36 | EM ---
EVENT MONITOR A 7-day event monitor. There were several rhythm strip rates. Tracings were reviewed. Predominant rhythm appears to be sinus rhythm or sinus tachycardia. No ventricular arrhythmias were noted. No atrial fibrillation was noted. Most of these were recordings without mention of any specific symptoms and some were auto capture. IMPRESSION: This is an unremarkable seven-day event monitor with predominant sinus rhythm and sinus tachycardia. MMODL / IJN: [id number] /
== END | disposition home or self-care (01) ==
LOC: RADECHMAIN 11:53
PROVIDERS: ATTEND Family Medicine
DX: R00.0 Tachycardia, unspecified (principal); R00.2 Palpitations; R42 Dizziness and giddiness
CPT/HCPCS: 93270

== ENCOUNTER → 2021-04-30 | Outpatient (CLI) | payer BC ==
[2021-04-30 13:59] VITALS: BP 112/75; PULSE 80; RESP 18; TEMP 98.6; BMI 29.4
--- NOTE | 2021-04-30 14:50 | P.BASOAP ---
Subjective Progress Note Date: 04/30/21 She feels like a new person. She lost over 120 pounds. She is getting a divorce. No GERD. No troubles with the skin. Her weight is stable done. She had tummy tuck, breast and implants with liposuction. She went to Dr. Beck in [place]. She had body contouring. Her weight is controlled. She lost 10 pounds of skin. She reports gallbladder. Recommend gallbladder ultrasound. Objective - Vital Signs Vital signs: Vital Signs Temp 98.6 F 04/30/21 13:53 Pulse 80 04/30/21 13:53 Resp 18 04/30/21 13:53 BP 112/75 04/30/21 13:53 Pulse Ox Intake & Output 04/29/21 04/30/21 04/30/21 18:59 06:59 18:59 Weight 80.15 kg Assessment/Plan Plan: Date: 04/30/21 Initial Weight: 133.81 kg Initial BMI: 49.1 Current Weight: 80.15 kg Current BMI: 29.4 Type of Surgery: Total Volume in Band: Previous Volume: Volume Removed: Volume Added: Band Size:
[2021-04-30 16:10] LABS: HCT 43.4 % (34.0-46.0); HGB 14.6 gm/dL (11.4-16.0); MCHC 33.6 g/dL (31.0-37.0); MCV 89.3 fL (80.0-100.0); Mean Platelet Volume 7.1; Platelet Count 172 k/uL (150-450); RBC 4.86 m/uL (3.80-5.40); RDW 12.1 % (11.5-15.5); WBC 5.2 k/uL (3.8-10.6)
[2021-04-30 17:57] LABS: Partial Thromboplastin Time 22.4 sec (22.0-30.0); Prothrombin Time 10.3 sec (9.0-12.0)
[2021-05-01 04:50] LABS: ALT 21 U/L (8-44); AST 22 U/L (13-35); African American GFR (CKD) 113.6 (60.0-200.0); Albumin 4.2 g/dL (3.8-4.9); Albumin/Globulin Ratio 1.67 (1.60-3.17); Alkaline Phosphatase 49 U/L (41-126); Blood Urea Nitrogen 14.8 mg/dL (9.0-27.0); Calcium 9.2 mg/dL (8.7-10.3); Carbon Dioxide 25.4 mmol/L (20.0-27.5); Chloride 106 mmol/L (96-109); Chol/HDL Ratio 2.14 Ratio; Globulin 2.5 g/dL (1.6-3.3); Glucose 85 mg/dL (70-110); LDL Cholesterol,Calculated 61.1 mg/dL (0.0-131.0); Magnesium 2.1 mg/dL (1.5-2.4); Phosphorus 3.9 mg/dL (2.4-5.1); Potassium 4.4 mmol/L (3.5-5.5); Prealbumin 18.6 mg/dL (18.0-42.0); Sodium 142 mmol/L (135-145); Total Protein 6.6 g/dL (6.2-8.2); VLDL Calculation 15.18 mg/dL (5.00-40.00)
[2021-05-02 06:00] LABS: Vit B1(Thiamine) 73 ug/L (38-122)
[2021-05-02 09:16] LABS: Vitamin A 40 ug/dL (38-106)
[2021-05-02 11:45] LABS: Zinc, Serum 64 ug/dL (60-130)
== END | disposition home or self-care (01) ==
LOC: BARWHC3 13:06
PROVIDERS: ATTEND Surgery Plastic and Reconstructive Surgery
DX: E66.01 Morbid (severe) obesity due to excess calories (principal); E89.1 Postprocedural hypoinsulinemia; D50.8 Other iron deficiency anemias; K90.89 Other intestinal malabsorption; E55.9 Vitamin D deficiency, unspecified; K74.1 Hepatic sclerosis; N19 Unspecified kidney failure; Z68.29 Body mass index [BMI] 29.0-29.9, adult
CPT/HCPCS: 80053; 80061; 82306; 82525; 82607; 82746; 83036; 83735; 83970; 84100; 84134; 84255; 84425; 84443; 84590; 84630; 85027; 85610; 85730; 99211

== ENCOUNTER → 2021-05-27 | Outpatient (CLI) | payer BC ==
--- NOTE | 2021-05-27 16:13 | US ---
EXAMINATION TYPE: US gallbladder DATE OF EXAM: 05/27/2021 COMPARISON: US GB 2019 CLINICAL HISTORY: R10.11 Right upper quadrant abdominal pain. Intermittent abdominal pain ever since surgery; hx of weight loss surgery. EXAM MEASUREMENTS: Liver Length: 13.2 cm Gallbladder Wall: 0.24 cm CBD: Non-visualization cm Right Kidney: 10.5 x 5.3 x 4.5 cm Pancreas: limited visualization Liver: Obscured by overlying bowel gas Gallbladder: Multiple echogenic foci seen with posterior shadowing. Evidence for sonographic Matute's sign: No CBD: wnl Right Kidney: appears wnl Difficult exam due to excessive overlying bowel gas IMPRESSION: There is evidence of cholelithiasis.
== END ==
LOC: RADUSWWP 15:42
PROVIDERS: ATTEND Surgery Plastic and Reconstructive Surgery
DX: K80.20 Calculus of gallbladder without cholecystitis without obstruction (principal)
CPT/HCPCS: 76705

== ENCOUNTER → 2021-06-12 | Outpatient (CLI) | payer BC ==
[2021-06-12 13:58] LABS: Basophils % (A) 1 %; Eosinophils # (A) 0.1 k/uL (0-0.7); Eosinophils % (A) 2 %; HGB 13.9 gm/dL (11.4-16.0); Lymphocytes # (A) 1.3 k/uL (1.0-4.8); Lymphocytes % (A) 30 %; MCH 30.4 pg (25.0-35.0); MCHC 33.2 g/dL (31.0-37.0); MCV 91.7 fL (80.0-100.0); Monocytes # (A) 0.3 k/uL (0-1.0); Monocytes % (A) 6 %; Neutrophils # (A) 2.7 k/uL (1.3-7.7); Neutrophils % (A) 60 %; Platelet Count 159 k/uL (150-450); RBC 4.58 m/uL (3.80-5.40); RDW 12.5 % (11.5-15.5); WBC 4.4 k/uL (3.8-10.6)
[2021-06-12 14:04] LABS: ALT 14 U/L (4-34); AST 28 U/L (14-36); African American GFR (CKD) >90 (>60 ml/min/1.73 sqM); Albumin 3.9 g/dL (3.5-5.0); Alkaline Phosphatase 49 U/L (38-126); Anion Gap 5 mmol/L; Blood Urea Nitrogen 18 mg/dL (7-17); Calcium 9.3 mg/dL (8.4-10.2); Carbon Dioxide 29 mmol/L (22-30); Chloride 104 mmol/L (98-107); Glucose 96 mg/dL (74-99); Non-African American GFR(CKD) >90 (>60 ml/min/1.73 sqM); Potassium 4.2 mmol/L (3.5-5.1); Sodium 138 mmol/L (137-145); Total Bilirubin 0.6 mg/dL (0.2-1.3); Total Protein 6.8 g/dL (6.3-8.2)
== END | disposition home or self-care (01) ==
LOC: LABPAT 12:08
PROVIDERS: ATTEND Surgery Plastic and Reconstructive Surgery
DX: Z01.812 Encounter for preprocedural laboratory examination (principal)
CPT/HCPCS: 80053; 85025; 93005; 36415; U0003; C9803

== ENCOUNTER → 2021-07-03 | Outpatient (CLI) | payer BC | END | disposition home or self-care (01) | LOC: LABPAT 13:16 | PROVIDERS: ATTEND Surgery Plastic and Reconstructive Surgery | DX: Z20.822 Contact with and (suspected) exposure to COVID-19 (principal) | CPT/HCPCS: U0003; C9803 ==

== ENCOUNTER 2021-07-07 08:22 | Day surgery (SDC) | payer BC ==
[2021-07-02 16:00] VITALS: BMI 29.1
--- NOTE | 2021-07-07 07:57 | P.GSHP ---
History of Present Illness H&P Date: 07/07/21 CHIEF COMPLAINT: Cholecystitis HISTORY OF PRESENT ILLNESS: The patient is a 36-year-old female who presents with history of epigastric including right upper quadrant abdominal pain. She underwent diagnostic studies for her gallbladder. Separately her clinical picture was consistent with cholecystitis. Now she presents for surgical intervention. PAST MEDICAL HISTORY: Please see list PAST SURGICAL HISTORY: Please see list MEDICATIONS: Please see list ALLERGIES: Please see list SOCIAL HISTORY: Please see list FAMILY HISTORY: Please see list REVIEW OF ORGAN SYSTEMS: CONSTITUTIONAL: No reports of fevers or chills. HEENT: Denies any troubles with the vision or hearing. ENDOCRINE: No reports of hypothyroidism. No diabetes. RESPIRATORY: No recent pneumonias. CARDIOVASCULAR: Denies chest pain or palpitations GI: No blood in stools or constipation. MUSCULOSKELETAL: Has occasional joint pain including back pain. NEURO: No seizure disorders or headaches. No recent stroke. PSYCH: No depression or suicidal ideation. GENITOURINARY: No active blood in urine. No urinary hesitancy. HEMATOLOGIC: No personal or family history of DVTs or pulmonary emboli. SKIN: No skin cancer. PHYSICAL EXAM: VITAL SIGNS: Afebrile vital signs stable GENERAL: Well-developed pleasant in no acute distress. HEENT: No scleral icterus. Extraocular movements grossly intact. Moist buccal mucosa. NECK: Supple without lymphadenopathy. CHEST: Unlabored respirations. Equal bilateral excursions. CARDIOVASCULAR: Regular rate regular rhythm rhythm. Distal 2+ pulses. ABDOMEN: Soft, nondistended. Tender along the epigastrium and right upper quadrant. MUSCULOSKELETAL: No clubbing, cyanosis, or edema. NEURO: Cranial nerves II to XII within normal limits. No focal or lateralizing signs. PSYCH: Alert and oriented to person, place and time. SKIN: Well-perfused good skin turgor. ASSESSMENT: 1. Epigastric and right upper quadrant abdominal pain 2. Chronic cholecystitis 3. Symptomatic gallstones. PLAN: 1. Will need a robotic cholecystectomy possible open. Benefits and risks were described. 2. Heparin for DVT prophylaxis 5000 units. 3. Antibiotic prophylaxis. Past Medical History Past Medical History: Blood Disorder, Deep Vein Thrombosis (DVT), GERD/Reflux, Liver Disease Additional Past Medical History / Comment(s): Factor 5 Leiden Disorder, hx multiple DVT's, Fatty Liver, Migraines, hx [place] Palsy. History of Any Multi-Drug Resistant Organisms: None Reported Past Surgical History: Appendectomy, Bariatric Surgery, Breast Surgery, Section, Orthopedic Surgery, Tubal Ligation Additional Past Surgical History / Comment(s): section X2, wisdom teeth removed, IVC filter placed and removed, sleeve gastrectomy 04-03-19, left knee surgery X2, tummy tuck, liposuction, breast implants. Past Anesthesia/Blood Transfusion Reactions: Motion Sickness, Postoperative Nausea & Vomiting (PONV) Additional Past Anesthesia/Blood Transfusion Reaction / Comment(s): Mom PONV. Smoking Status: Former smoker, Light tobacco smoker - Past Family History Mother Family Medical History: Cancer, Diabetes Mellitus, Deep Vein Thrombosis (DVT), Thyroid Disorder Medications and Allergies Home Medications Medication Instructions Recorded Confirmed Type Rivaroxaban [Xarelto] 20 mg PO HS 04/14/19 07/02/21 History Montelukast Sodium [Singulair] 10 mg PO HS 06/09/21 07/02/21 History Spironolactone 25 mg PO HS 06/09/21 07/02/21 History Allergies Allergy/AdvReac Type Severity Reaction Status Date / Time No Known Allergies Allergy Verified 07/02/21 15:51
[~2021-07-07 08:22] MED LIST changes: +ACETAMINOPHEN TAB 500 MG TAB PO PRN; +DEXAMETHASONE SOD PHOSPHATE 4 MG/ML 1 ML VIAL IV ONE; +GABAPENTIN 300 MG CAP PO PRN; +HYDROmorphone 1 MG/ML 1 ML SYRINGE IVP PRN; +INDOCYANINE GREEN 25 MG VIAL IV STA; +LACTATED RINGERS 1,000 ML IV SCH; +LIDOCAINE 1% (10MG/ML) FOR IV START INTRADERMA PRN; +METOCLOPRAMIDE 5 MG/ML 2 ML VIAL IVP PRN; -ONDANSETRON 4 MG/2 ML VIAL IVP NR; +ONDANSETRON 4 MG/2 ML VIAL IVP ONE; +SCOPOLAMINE 1.5MG/72HR PATCH TRANSDERM ONE; +SCOPOLAMINE 1.5MG/72HR PATCH TRANSDERM PRN; -SODIUM CHLORIDE 0.9% 500 ML 500 ML in EMPTY BAG 1 BAG IV PRN
[2021-07-07] MEDS ORDERED: MIDAZOLAM 2 MG/2 ML VIAL IVP ONE (09:27)
[2021-07-07] MEDS ORDERED: BUPIVACAIN-EPI 0.25%-1:200,000 30 ML VIAL SQ ONE ×2 (10:18→10:56)
[2021-07-07] MEDS ORDERED: fentaNYL (PF) 50 MCG/ML 2 ML AMP ONE (10:21)
[2021-07-07] MEDS ORDERED: GLYCOPYRROLATE 0.2 MG/ML 2 ML VIAL ONE (10:21)
[2021-07-07] MEDS ORDERED: LIDOCAINE 1% INJ 10MG/ML (20 ML MDV) ONE (10:21)
[2021-07-07] MEDS ORDERED: SUCCINYLCHOLINE CHLORIDE 100 MG/5 ML SYR IV ONE (10:21)
[2021-07-07] MEDS ORDERED: HYDROmorphone (PF) 1 MG/ML ONE (10:21)
[2021-07-07] MEDS ORDERED: PROPOFOL 10 MG/ML 20 ML VIAL IV ONE (10:21)
[2021-07-07] MEDS ORDERED: NEOSTIGMINE 1 MG/ML 10 ML VIAL ONE (10:21)
[2021-07-07] MEDS ORDERED: ROCURONIUM 10 MG/ML (5 ML VIAL) IV ONE (10:21)
[2021-07-07] MEDS ORDERED: LACTATED RINGERS 1,000 ML IV ONE (11:36)
[2021-07-07] MEDS ORDERED: KETOROLAC 30 MG/ML 1 ML VIAL IVP SCH (12:00)
[2021-07-07 12:20] VITALS: TEMP 97.2
--- NOTE | 2021-07-07 12:26 | P.OP ---
Date of Procedure: 07/07/21 Description of Procedure: SURGEON: JOSE MARIA LUONG MD PREOPERATIVE DIAGNOSES: 1. Symptomatic gallstones 2. Right upper quadrant abdominal pain 3. Status post sleeve gastrectomy 4. Chronic anticoagulation 5. Hypercoagulable genetic disorder 6. Obesity, BMI 30.9 POSTOPERATIVE DIAGNOSES: 1. Symptomatic gallstones 2. Right upper quadrant abdominal pain 3. Status post sleeve gastrectomy 4. Chronic anticoagulation 5. Hypercoagulable genetic disorder 6. Obesity, BMI 30.9 7. Chronic cholecystitis 8. Peritoneal adhesions, right upper quadrant 9. Fatty liver disease OPERATION: 1. Robotic-assisted da Kit Xi laparoscopic lysis of adhesions 2. Robotic-assisted da Kit Xi laparoscopic cholecystectomy, multiport with FIREFLY ESTIMATED BLOOD LOSS: 10 mL. SPECIMENS REMOVED: Gallbladder. COMPLICATIONS: None. OPERATIVE FINDINGS: 1. Moderate scarring over entire gallbladder with peritoneal adhesions, pericholecystic with features of chronic cholecystitis 2. Multiple gallstones 3. Fatty liver disease INDICATIONS: The patient is a 36-year-old female who presents with symptomatic gallstones. Robotic assisted laparoscopic approach was described. Benefits and risks of the procedure including but not limited to bleeding, infection, injury to the biliary tree was described. Informed consent was obtained. DESCRIPTION OF PROCEDURE: Patient was brought to the operating room, placed in supine position. After general induction, the abdomen had been prepped and draped in standard sterile fashion. The robotic da Kit XI system was primed. After a timeout protocol was performed, the patient had been prepped and draped in standard sterile fashion. The patient was injected with indocyanine green. A 5 mm 0 degrees laparoscopic trocar entry was performed along the left upper quadrant. The abdomen insufflated to 15 mmHg pressure which was tolerated well. Diagnostic laparoscopy demonstrated no injury to bowel viscera or mesentery. The liver surface was unremarkable. Next, two 8 mm robotic ports were placed along the right upper abdomen. The camera 8-mm port was maintained along the epigastrium. Another 8 mm port was placed along the left upper abdominal wall after exchanging the 5 mm port. Please note that the ports were placed at least 10 to 15 cm away from the target anatomy of the gallbladder. The robot was docked along the left lateral abdomen. The patient was repositioned in reverse Trendelenburg position. Using a grasper for arm 3, a grasper for arm 4, including hook cautery for arm 1, the robotic system was docked and primed as described. Instruments were interchanged by the library circulation assistant including hook cautery, Bovie cautery and clip appliers. I had sat at the console. The gallbladder was scarred with peritoneal adhesions. Lysis of adhesions was performed to free the gallbladder from the surrounding tissues. Next attention was brought to the infundibulum and cystic structures. The infundibulum and cystic duct were dissected free from surrounding tissues. The cystic duct was isolated. FIREFLY was used to identify the cystic artery and cystic structures. A critical view of safety was obtained. Large PLASTIC clips were used throughout the entire case. Using a clip radio mechanic, 2 clips were placed at the junction of the infundibulum and cystic duct. The cystic duct was divided between clips. Next, the cystic artery was similarly clipped and cauterized. Total of 4 clips used during the case. Electro-Bovie cautery was used to remove the gallbladder from the hepatic fossa. Hemostasis was checked and found to be adequate. The robot was undocked. I re-scrubbed into the case. Using a 10 mm Endo Catch bag via the left upper quadrant incision, the specimen was removed from the abdominal cavity. All pneumoperitoneum instruments were evacuated from the abdominal cavity. The incisions were reapproximated using 4-0 Monocryl in an interrupted subcuticular fashion. Fascial defects were less than 8 mm in size. Please note along the trocar sites, local anesthetic was placed as a field block prior to insertion of all instruments. Liquid glue was applied to the skin. At the end of the procedure needle, sponge, and instrument count had been verified correct by the surgical scrub tech. The patient was transferred to postanesthesia care unit in stable condition. Intraoperative films were shared with the patient's family. Plan - Discharge Summary Discharge Rx Participant: Yes New Discharge Prescriptions: New Simethicone [Gas-X] 125 mg PO AC-TID PRN #20 capsule PRN Reason: Pain Acetaminophen Tab [Tylenol Tab] 1,000 mg PO Q6HR PRN #30 tablet PRN Reason: Pain Continue Rivaroxaban [Xarelto] 20 mg PO HS Montelukast Sodium [Singulair] 10 mg PO HS Spironolactone 25 mg PO HS Discharge Medication List Rivaroxaban [Xarelto] 20 mg PO HS 04/14/19 [History] Montelukast Sodium [Singulair] 10 mg PO HS 06/09/21 [History] Spironolactone 25 mg PO HS 06/09/21 [History] Acetaminophen Tab [Tylenol Tab] 1,000 mg PO Q6HR PRN #30 tablet 07/07/21 [Rx] Simethicone [Gas-X] 125 mg PO AC-TID PRN #20 capsule 07/07/21 [Rx] Follow up Appointment(s)/Referral(s): [facility] [NON-STAFF] - 07/09/21 Patient Instructions/Handouts: *Surgery [facility] - Scopalamine Patch Instructions Activity/Diet/Wound Care/Special Instructions: DO NOT START BLOOD THINNER UNTIL WEDNESDAY, JUL 09!!!!!! Using antibacterial or HIBICLENS soap. No lifting over 10 pounds 2 weeks, Jul 21 May shower. No bathtub soaks for 2 weeks, Jul 21 Wear abdominal binder daily for comfort except for showering. Use ice along incisions for today to prevent swelling. Take tylenol, aleve/ibuprofen, simethicone scheduled for 3 days for best pain relief Discharge Disposition: HOME SELF-CARE
[2021-07-07] MEDS ORDERED: HYDROmorphone 1 MG/ML 1 ML SYRINGE IVP ONE (12:28)
[2021-07-07 13:43] VITALS: RESP 16
[2021-07-07 14:08] VITALS: BP 97/64; PULSE 56
== END 2021-07-07 14:34 | disposition home or self-care (01) ==
LOC: OR 08:22
PROVIDERS: ATTEND Surgery Plastic and Reconstructive Surgery
DX: K80.10 Calculus of gallbladder with chronic cholecystitis without obstruction (principal); K21.9 Gastro-esophageal reflux disease without esophagitis; K76.0 Fatty (change of) liver, not elsewhere classified; G43.909 Migraine, unspecified, not intractable, without status migrainosus; D68.51 Activated protein C resistance; Z86.718 Personal history of other venous thrombosis and embolism; G51.0 Bell's palsy; Z90.49 Acquired absence of other specified parts of digestive tract; Z98.84 Bariatric surgery status; Z98.891 History of uterine scar from previous surgery; Z98.51 Tubal ligation status; Z98.890 Other specified postprocedural states; F17.200 Nicotine dependence, unspecified, uncomplicated; Z80.9 Family history of malignant neoplasm, unspecified; Z83.3 Family history of diabetes mellitus; Z83.49 Family history of other endocrine, nutritional and metabolic diseases; Z82.49 Family history of ischemic heart disease and other diseases of the circulatory system; Z79.01 Long term (current) use of anticoagulants; Z79.899 Other long term (current) drug therapy
CPT/HCPCS: 81025; 88304; 47563; J2250; J1100; J2710; J2765; J0690; J2405; J2001; J3010; J1885; J1170; J0330; J2704

== ENCOUNTER 2021-07-19 22:47 | Emergency (ER) | payer BC ==
[2021-07-19 22:57] VITALS: RESP 18; TEMP 98.3
[2021-07-19] MEDS ORDERED: METOCLOPRAMIDE 5 MG/ML 2 ML VIAL IVP STA (23:42)
[2021-07-19] MEDS ORDERED: diphenhydrAMINE 50 MG/ML 1 ML VIAL IVP STA (23:42)
[2021-07-19] MEDS ORDERED: SODIUM CHLORIDE 0.9% 1,000 ML IV STA (23:42)
--- NOTE | 2021-07-19 23:46 | ED ---
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 She is status post cholecystectomy on the seventh by Dr. myers. States that after surgery she was discharged home with Tylenol. Since the procedure the patient has had epigastric discomfort which is worse with breathing. States that she has had this similar pain before but did not receive the diagnosis. She has been taking omeprazole in the Tylenol without any improvement in her symptoms. States that she has not given anything more significant for pain control or nausea. She denies any fevers. Has been able to eat and hold down food without difficulty. No vomiting. Denies any changes in her bowel or bladder habits. She is passing gas. 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 - Related Data Home Medications Medication Instructions Recorded Confirmed Montelukast Sodium [Singulair] 10 mg PO HS 06/09/21 07/22/21 Spironolactone 25 mg PO HS 06/09/21 07/22/21 Rivaroxaban [Xarelto] 20 mg PO HS 07/22/21 07/22/21 Previous Rx's Medication Instructions Recorded Acetaminophen Tab [Tylenol] 1,000 mg PO Q6HR PRN #30 tablet 07/07/21 Omeprazole [PriLOSEC] 40 mg PO DAILY #14 cap 07/17/21 Ondansetron Odt [Zofran ODT] 4 mg PO Q8HR PRN #10 tab 07/20/21 Allergies Allergy/AdvReac Type Severity Reaction Status Date / Time No Known Allergies Allergy Verified 07/22/21 08:58 Review of Systems ROS Statement: Those systems with pertinent positive or pertinent negative responses have been documented in the HPI. ROS Other: All systems not noted in ROS Statement are negative. Past Medical History Past Medical History: Blood Disorder, Deep Vein Thrombosis (DVT), GERD/Reflux, Liver Disease Additional Past Medical History / Comment(s): Factor 5 Leiden Disorder, hx multiple DVT's, Fatty Liver, Migraines, hx [place] Palsy. History of Any Multi-Drug Resistant Organisms: None Reported Past Surgical History: Appendectomy, Bariatric Surgery, Breast Surgery, Section, Cholecystectomy, Orthopedic Surgery, Tubal Ligation Additional Past Surgical History / Comment(s): section X2, wisdom teeth removed, IVC filter placed and removed, sleeve gastrectomy 04-03-19, left knee surgery X2, tummy tuck, liposuction, breast implants. Past Anesthesia/Blood Transfusion Reactions: Motion Sickness, Postoperative Nausea & Vomiting (PONV) Additional Past Anesthesia/Blood Transfusion Reaction / Comment(s): Mom PONV. Past Psychological History: No Psychological Hx Reported Smoking Status: Former smoker Past Alcohol Use History: Occasional Past Drug Use History: None Reported - Past Family History Mother Family Medical History: Cancer, Diabetes Mellitus, Deep Vein Thrombosis (DVT), Thyroid Disorder General Exam General appearance: alert, in no apparent distress Head exam: Present: atraumatic, normocephalic, normal inspection Eye exam: Present: normal appearance, PERRL, EOMI. Absent: scleral icterus, conjunctival injection, periorbital swelling ENT exam: Present: normal exam, mucous membranes moist Neck exam: Present: normal inspection. Absent: tenderness, meningismus, lymphadenopathy Respiratory exam: Present: normal lung sounds bilaterally. Absent: respiratory distress, wheezes, rales, rhonchi, stridor Cardiovascular Exam: Present: regular rate, normal rhythm, normal heart sounds. Absent: systolic murmur, diastolic murmur, rubs, gallop, clicks GI/Abdominal exam: Present: soft, tenderness (EPIGAsTRIC), normal bowel sounds. Absent: distended, guarding, rebound, rigid Extremities exam: Present: normal inspection, full ROM, normal capillary refill. Absent: tenderness, pedal edema, joint swelling, calf tenderness Back exam: Present: normal inspection Neurological exam: Present: alert, oriented X3, CN II-XII intact Psychiatric exam: Present: normal affect, normal mood Skin exam: Present: warm, dry, intact, normal color. Absent: rash Course Vital Signs 07/19/21 07/20/21 22:54 02:28 Temperature 98.3 F Pulse Rate 60 54 L Respiratory 18 18 Rate Blood Pressure 101/71 121/84 O2 Sat by Pulse 97 96 Oximetry EKG Findings - EKG Comments: EKG Findings:: EKG demonstrates a sinus bradycardia with a ventricular rate of 46. AK interval 141. QRS 91. QTC of 396. No acute ST segment elevations or depressions concerning for ischemic changes. No signs of high degree heart block Medical Decision Making - Medical Decision Making Upon arrival patient was placed into room 16. A thorough history and physical exam was performed. IV access is established and laboratory studies are conducted. Told EKG was performed. Patient does have a bradycardic rate however this is known to the patient. Previous EKGs demonstrate bradycardia. Patient is given a dose of Dilaudid, Reglan and Benadryl for her pain and nausea. Laboratory studies are conducted. Patient sent over for a CT of her chest she does have a history of factor V and was off of her anticoagulation for several days because of her surgery. Laboratory studies demonstrate an elevated AST of 192, ALT of 244 and an alk phos of 179. CT of the chest does not demonstrate any pleural effusions, pulmonary embolism. I completed an ultrasound due to the elevated liver enzymes which demonstrates small cystic fluid collection in the right upper quadrant which could be a seroma or hematoma. Patient is reevaluated and reports to improvement in her symptoms. At this time she will be discharged home with a prescription for Tylenol threes and Zofran. Instructed to call Dr. Henriquez's office on Wednesday to inform her of her visit to the emergency department. Return for any new or worsening symptoms. Patient agreed to treatment plan she was discharged home in stable condition - Lab Data Result diagrams: 07/19/21 23:30 07/19/21 23:30 Lab Results 07/19/21 07/19/21 07/19/21 Range/Units 23:30 23:30 23:30 WBC 5.6 (3.8-10.6) k/uL RBC 4.64 (3.80-5.40) m/uL Hgb 14.4 (11.4-16.0) gm/dL Hct 43.4 (34.0-46.0) % MCV 93.5 (80.0-100.0) fL MCH 31.1 (25.0-35.0) pg MCHC 33.2 (31.0-37.0) g/dL RDW 12.9 (11.5-15.5) % Plt Count 193 (150-450) k/uL MPV 7.3 Neutrophils % 54 % Lymphocytes % 32 % Monocytes % 5 % Eosinophils % 6 % Basophils % 2 % Neutrophils # 3.0 (1.3-7.7) k/uL Lymphocytes # 1.8 (1.0-4.8) k/uL Monocytes # 0.3 (0-1.0) k/uL Eosinophils # 0.3 (0-0.7) k/uL Basophils # 0.1 (0-0.2) k/uL PT 10.8 (9.0-12.0) sec INR 1.0 (<1.2) APTT 23.3 (22.0-30.0) sec Sodium 140 (137-145) mmol/L Potassium 4.0 (3.5-5.1) mmol/L Chloride 106 (98-107) mmol/L Carbon Dioxide 27 (22-30) mmol/L Anion Gap 7 mmol/L BUN 11 (7-17) mg/dL Creatinine 0.68 (0.52-1.04) mg/dL Est GFR (CKD-EPI)AfAm >90 (>60 ml/min/1.73 sqM) Est GFR (CKD-EPI)NonAf >90 (>60 ml/min/1.73 sqM) Glucose 81 (74-99) mg/dL Calcium 9.2 (8.4-10.2) mg/dL Magnesium 1.9 (1.6-2.3) mg/dL Total Bilirubin 0.8 (0.2-1.3) mg/dL AST 192 H (14-36) U/L ALT 244 H (4-34) U/L Alkaline Phosphatase 179 H (38-126) U/L Troponin I (0.000-0.034) ng/mL Total Protein 6.7 (6.3-8.2) g/dL Albumin 3.7 (3.5-5.0) g/dL Lipase 160 (23-300) U/L 07/19/21 Range/Units 23:30 WBC (3.8-10.6) k/uL RBC (3.80-5.40) m/uL Hgb (11.4-16.0) gm/dL Hct (34.0-46.0) % MCV (80.0-100.0) fL MCH (25.0-35.0) pg MCHC (31.0-37.0) g/dL RDW (11.5-15.5) % Plt Count (150-450) k/uL MPV Neutrophils % % Lymphocytes % % Monocytes % % Eosinophils % % Basophils % % Neutrophils # (1.3-7.7) k/uL Lymphocytes # (1.0-4.8) k/uL Monocytes # (0-1.0) k/uL Eosinophils # (0-0.7) k/uL Basophils # (0-0.2) k/uL PT (9.0-12.0) sec INR (<1.2) APTT (22.0-30.0) sec Sodium (137-145) mmol/L Potassium (3.5-5.1) mmol/L Chloride (98-107) mmol/L Carbon Dioxide (22-30) mmol/L Anion Gap mmol/L BUN (7-17) mg/dL Creatinine (0.52-1.04) mg/dL Est GFR (CKD-EPI)AfAm (>60 ml/min/1.73 sqM) Est GFR (CKD-EPI)NonAf (>60 ml/min/1.73 sqM) Glucose (74-99) mg/dL Calcium (8.4-10.2) mg/dL Magnesium (1.6-2.3) mg/dL Total Bilirubin (0.2-1.3) mg/dL AST (14-36) U/L ALT (4-34) U/L Alkaline Phosphatase (38-126) U/L Troponin I <0.012 (0.000-0.034) ng/mL Total Protein (6.3-8.2) g/dL Albumin (3.5-5.0) g/dL Lipase (23-300) U/L Disposition Clinical Impression: Hx of deep venous thrombosis, Epigastric pain, S/P cholecystectomy Disposition: HOME SELF-CARE Condition: Stable Instructions (If sedation given, give patient instructions): Abdominal Pain (ED ) Additional Instructions: Please take the pain and nausea medications as needed. Call Dr. Myers to make her aware of your symptoms. Return for any new or worsening symptoms to include fever, worsening pain. Prescriptions: Ondansetron Odt [Zofran ODT] 4 mg PO Q8HR PRN #10 tab PRN Reason: Nausea Is patient prescribed a controlled substance at d/c from ED?: Yes When asked, does pt state using other controlled substances?: No If prescribed controlled substance>3 days was MAPS reviewed?: Prescribed <3 Days If opioid is for acute pain is fill amount 7 days or less?: Yes If Rx opioid, was Start Talking consent form obtained?: Yes Referrals: Anay Del Real MD [Primary Care Provider] - 1-2 days Zeinab Myers MD [STAFF PHYSICIAN] - 1-2 days Time of Disposition: 02:11
[2021-07-19 23:58] LABS: Basophils # (A) 0.1 k/uL (0-0.2); Basophils % (A) 2 %; Eosinophils # (A) 0.3 k/uL (0-0.7); Eosinophils % (A) 6 %; HCT 43.4 % (34.0-46.0); HGB 14.4 gm/dL (11.4-16.0); Lymphocytes # (A) 1.8 k/uL (1.0-4.8); Lymphocytes % (A) 32 %; MCH 31.1 pg (25.0-35.0); MCHC 33.2 g/dL (31.0-37.0); MCV 93.5 fL (80.0-100.0); Mean Platelet Volume 7.3; Monocytes # (A) 0.3 k/uL (0-1.0); Monocytes % (A) 5 %; Neutrophils % (A) 54 %; Platelet Count 193 k/uL (150-450); RBC 4.64 m/uL (3.80-5.40); RDW 12.9 % (11.5-15.5); WBC 5.6 k/uL (3.8-10.6)
[2021-07-20] MEDS ORDERED: HYDROmorphone 1 MG/ML 1 ML SYRINGE IVP ONE
[2021-07-20 00:07] LABS: Partial Thromboplastin Time 23.3 sec (22.0-30.0); Prothrombin Time 10.8 sec (9.0-12.0)
[2021-07-20 00:19] LABS: ALT 244 U/L (4-34); AST 192 U/L (14-36); African American GFR (CKD) >90 (>60 ml/min/1.73 sqM); Albumin 3.7 g/dL (3.5-5.0); Alkaline Phosphatase 179 U/L (38-126); Anion Gap 7 mmol/L; Blood Urea Nitrogen 11 mg/dL (7-17); Calcium 9.2 mg/dL (8.4-10.2); Carbon Dioxide 27 mmol/L (22-30); Chloride 106 mmol/L (98-107); Glucose 81 mg/dL (74-99); Lipase 160 U/L (23-300); Magnesium 1.9 mg/dL (1.6-2.3); Non-African American GFR(CKD) >90 (>60 ml/min/1.73 sqM); Sodium 140 mmol/L (137-145); Total Bilirubin 0.8 mg/dL (0.2-1.3); Total Protein 6.7 g/dL (6.3-8.2)
--- NOTE | 2021-07-20 00:22 | CT ---
EXAMINATION TYPE: CT chest angio for PE DATE OF EXAM: 07/20/2021 COMPARISON: 07/27/2019 HISTORY: pain CT DLP: 382.3 mGycm Automated exposure control for dose reduction was used. CONTRAST: Performed with IV Contrast, patient injected with 100 mL of Isovue 370. Images obtained from the thoracic inlet to the diaphragm with IV contrast. There are 3-D post process ed images. Mediastinum is normal. Thoracic aorta is intact. There is no aneurysm or dissection. There are no hil ar masses. Heart size is normal. There is no pericardial effusion. There is no pleural effusion. The lungs are clear of infiltrate. Thoracic spine is intact. There is no compression fracture. Sternum is intact. There is normal contrast opacification of the pulmonary arteries. There are no filling defects. Upper abdominal soft tissues are intact. There are clips from gastric bariatric surgery. IMPRESSION: No evidence of pulmonary embolism.
--- NOTE | 2021-07-20 01:22 | US ---
EXAMINATION TYPE: US abdomen limited DATE OF EXAM: 07/20/2021 COMPARISON: CLINICAL HISTORY: ruq, elevated liver enzymes. GB removed on Wednesday. Abnormal labs. EXAM MEASUREMENTS: Liver Length: 14.7 cm Right Kidney: 10.1 x 5.4 x 5.4 cm Limited due to bowel gas Pancreas: Obscured by bowel gas Liver: cystic lesion at hilum/gb fossa= 1.4 x 1.4 x 1.3 cm Gallbladder: Surgically absent Evidence for sonographic Matute's sign: neg CBD: Obscured by overlying bowel gas Right Kidney: No hydronephrosis or masses seen IMPRESSION: Common bile duct not well seen. No sign of dilation of the intrahepatic bile ducts. Small cystic fluid collection in the right upper quadrant could be small seroma or hematoma at the ga llbladder fossa.
[2021-07-20] MEDS ORDERED: ONDANSETRON 4 MG ODT STARTER PACK 2 TAB BTL PO STA (02:05)
[2021-07-20] MEDS ORDERED: ACET/COD 300 MG/30 MG STARTER PACK 6 TAB BTL PO STA (02:05)
[2021-07-20 02:30] VITALS: BP 121/84; PULSE 54
== END 2021-07-20 02:30 | disposition home or self-care (01) ==
LOC: EC 22:47
DX: R10.13 Epigastric pain (principal); Z87.891 Personal history of nicotine dependence; Z86.718 Personal history of other venous thrombosis and embolism
CPT/HCPCS: 36415; 93005; 80053; 83690; 83735; 84484; 85025; 85610; 85730; 76705; 71275; 99285; 96374; 96375; 96361; J1200; J2765; J1170; S0119; Q9967

== ENCOUNTER 2021-07-22 08:03 | Observation (INO) | payer BC ==
--- NOTE | 2021-07-22 08:29 | ED ---
Abdominal Pain HPI - General Chief Complaint: Abdominal Pain Stated Complaint: abd/chest pain Time Seen by Provider: 07/22/21 08:10 Source: patient Mode of arrival: EMS Limitations: no limitations - History of Present Illness Initial Comments: This is a 36 year old female who presents to the emergency department as a transfer from [facility]. She had a cholecystectomy with Dr. Myers on 07/07/2021 and has continued to have RUQ pain. She was evaluated at this emergency department on 07/19/2021 for increasing RUQ pain and was found to have elevated liver enzymes. When she was seen at [facility] emergency department last night, her liver enzymes had increased since she was seen here. Abdominal US on 07/20/2021 in this ED revealed a small cystic fluid collection in the RUQ suggestive of a seroma or hematoma at the gallbladder fossa. US from 07/21/2021 at [facility] revealed a 2.3cm anechoic structure within the gallbladder fossa. Upon evaluation after transfer, pain is currently a 5/10 and the most severe in her back. States that she was given morphine at [facility] and is concerned that this may have given her a headache. Liver Enzymes - 07/19/2021 AST - 192 ALT - 244 Alk Phos - 179 Total bilirubin - 0.8 Liver Enzymes - 07/21/2021 AST - 245 ALT - 258 Alk Phos - 222 Total bilirubin - 1.8 - Related Data Home Medications Medication Instructions Recorded Confirmed Montelukast Sodium [Singulair] 10 mg PO HS 06/09/21 07/09/21 Spironolactone 25 mg PO HS 06/09/21 07/09/21 Rivaroxaban [Xarelto] 20 mg PO HS 07/22/21 07/22/21 Previous Rx's Medication Instructions Recorded Acetaminophen Tab [Tylenol Tab] 1,000 mg PO Q6HR PRN #30 tablet 07/07/21 Simethicone [Gas-X] 125 mg PO AC-TID PRN #20 capsule 07/07/21 Omeprazole [PriLOSEC] 40 mg PO DAILY #14 cap 07/17/21 Acetaminophen-Codeine 300-30mg 1 tab PO Q6H PRN 3 Days #12 tablet 07/20/21 [Tylenol w/codeine #3] Ondansetron Odt [Zofran Odt] 4 mg PO Q8HR PRN #10 tab 07/20/21 Allergies Allergy/AdvReac Type Severity Reaction Status Date / Time No Known Allergies Allergy Verified 07/22/21 08:58 Review of Systems ROS Statement: Those systems with pertinent positive or pertinent negative responses have been documented in the HPI. ROS Other: All systems not noted in ROS Statement are negative. Constitutional: Denies: fever, chills Respiratory: Denies: cough, dyspnea Cardiovascular: Denies: chest pain, palpitations Gastrointestinal: Reports: abdominal pain. Denies: nausea, vomiting Genitourinary: Denies: urgency, dysuria Musculoskeletal: Reports: back pain Skin: Denies: rash, lesions Neurological: Denies: headache, weakness Past Medical History Past Medical History: Blood Disorder, Deep Vein Thrombosis (DVT), GERD/Reflux, Liver Disease Additional Past Medical History / Comment(s): Factor 5 Leiden Disorder, hx multiple DVT's, Fatty Liver, Migraines, hx [place] Palsy. History of Any Multi-Drug Resistant Organisms: None Reported Past Surgical History: Appendectomy, Bariatric Surgery, Breast Surgery, Section, Cholecystectomy, Orthopedic Surgery, Tubal Ligation Additional Past Surgical History / Comment(s): section X2, wisdom teeth removed, IVC filter placed and removed, sleeve gastrectomy 04-03-19, left knee surgery X2, tummy tuck, liposuction, breast implants. Past Anesthesia/Blood Transfusion Reactions: Motion Sickness, Postoperative Nausea & Vomiting (PONV) Additional Past Anesthesia/Blood Transfusion Reaction / Comment(s): Mom PONV. Past Psychological History: No Psychological Hx Reported Smoking Status: Former smoker Past Alcohol Use History: Occasional Past Drug Use History: None Reported - Past Family History Mother Family Medical History: Cancer, Diabetes Mellitus, Deep Vein Thrombosis (DVT), Thyroid Disorder General Exam Limitations: no limitations General appearance: alert, in no apparent distress Head exam: Present: atraumatic, normocephalic, normal inspection Respiratory exam: Present: normal lung sounds bilaterally. Absent: respiratory distress, wheezes, rales, rhonchi, stridor Cardiovascular Exam: Present: regular rate, normal rhythm, normal heart sounds. Absent: systolic murmur, diastolic murmur, rubs, gallop, clicks GI/Abdominal exam: Present: soft, normal bowel sounds. Absent: distended, tenderness, guarding, rebound, rigid Neurological exam: Present: alert, oriented X3, CN II-XII intact Psychiatric exam: Present: normal affect, normal mood Skin exam: Present: warm, dry, intact, normal color. Absent: rash Course Vital Signs 07/22/21 08:13 Temperature 98.4 F Pulse Rate 50 L Respiratory 18 Rate Blood Pressure 91/66 O2 Sat by Pulse 100 Oximetry Medical Decision Making - Medical Decision Making This is a 36 year old female who presents to the emergency department as a transfer from [facility] for persistent RUQ pain following a cholecystectomy on 07/07/2021, as well as elevated liver enzymes, and ultrasound changes. Dr. Myers has accepted the patient and she will be admitted to her service with GI as a consult. MRCP ordered per Dr. Myers's request. Patient started on IV fluids and placed on a clear liquid diet for the time being. Disposition Clinical Impression: Hx of cholecystectomy, RUQ abdominal pain, Retained gallstones following laparoscopic cholecystectomy Disposition: ADMITTED IP TO THIS [facility] Referrals: Anay Del Real MD [Primary Care Provider] - 1-2 days
[2021-07-22] MEDS ORDERED: ALPRAZolam 0.25 MG TAB PO PRN (08:45)
[2021-07-22] MEDS ORDERED: NALOXONE 0.4 MG/ML 1 ML VIAL IV PRN (08:45)
[2021-07-22] MEDS ORDERED: traMADol 50 MG TAB PO PRN (08:45)
[2021-07-22] MEDS ORDERED: ONDANSETRON 4 MG/2 ML VIAL IVP PRN (08:45)
[2021-07-22] MEDS ORDERED: ACETAMINOPHEN TAB 325 MG TAB PO PRN (08:45)
[2021-07-22] MEDS ORDERED: HYDROmorphone 1 MG/ML 1 ML SYRINGE IVP PRN ×2 (08:45→10:00)
[2021-07-22] MEDS ORDERED: SODIUM CHLORIDE 0.9% 1,000 ML IV STA (08:51)
[2021-07-22] MEDS ORDERED: fentaNYL (PF) 50 MCG/ML 2 ML AMP IVP ONE (08:52)
--- NOTE | 2021-07-22 08:59 | P.GSHP ---
History of Present Illness H&P Date: 07/22/21 CHIEF COMPLAINT: Abdominal pain with elevated LFTs HISTORY OF PRESENT ILLNESS: The patient is a 36 year old female status post cholecystectomy for symptom and a gallstone 07/07/2021, 2 weeks ago. She had been doing well home until 5 days ago developing increasing epigastric abdominal pain. She initially presented to the emergency room 07/19/2021 with worsening abdominal pain including elevated LFTs. After medications, patient was feeling well and was discharged home. Diagnostic studies at that time including laboratory studies demonstrated LFTs. She presented back to the emergency room at [facility] on 07/01/2021 with worsening symptoms. Repeat laboratory chemistries demonstrated elevated LFTs including new splenomegaly. As result, she was transferred to [facility] for admission with MRCP and ERCP. PAST MEDICAL HISTORY: 1. Morbid obesity due to excess calories 2. Body mass index of 49.1, initial 3. Osteoarthritis of the knees. 4. Osteoarthritis of the lower back. 5. Factor V Leiden 6. Gastroesophageal reflux disease 7. DVT extremity 8. Hypertensive heart disease 9. Vitamin D deficiency PAST SURGICAL HISTORY: 1. Appendectomy 2. section 3. Tubal ligation 4. Sleeve gastrectomy 5. Cholecystectomy HOME MEDICATIONS: Home Medications Medication Instructions Recorded Confirmed Rivaroxaban [Xarelto] 20 mg PO HS 04/14/19 07/09/21 Montelukast Sodium [Singulair] 10 mg PO HS 06/09/21 07/09/21 Spironolactone 25 mg PO HS 06/09/21 07/09/21 Previous Rx's Medication Instructions Recorded Acetaminophen Tab [Tylenol Tab] 1,000 mg PO Q6HR PRN #30 tablet 07/07/21 Simethicone [Gas-X] 125 mg PO AC-TID PRN #20 capsule 07/07/21 Omeprazole [PriLOSEC] 40 mg PO DAILY #14 cap 07/17/21 Acetaminophen-Codeine 300-30mg 1 tab PO Q6H PRN 3 Days #12 tablet 07/20/21 [Tylenol w/codeine #3] Ondansetron Odt [Zofran Odt] 4 mg PO Q8HR PRN #10 tab 07/20/21 ALLERGIES: Allergies Allergy/AdvReac Type Severity Reaction Status Date / Time No Known Allergies Allergy Verified 07/22/21 08:19 SOCIAL HISTORY: Past tobacco use. FAMILY HISTORY: No family history of ulcerative colitis disease or Crohn's disease. Family history of morbid obesity. No lupus in the family. No reports of stomach or esophageal cancer. REVIEW OF ORGAN SYSTEMS: CONSTITUTIONAL: At height of 5 feet 5 inches, her ideal body weight is 149 pounds. She comes in 294 pounds. Her body mass index is 49.1. She was 145 pounds overweight. HEENT: Denies any active troubles with vision or hearing. ENDOCRINE: No diabetes. No hypothyroidism. CARDIOVASCULAR: No past reports of palpitations or heart attacks or chest pain. Past blood clots. RESPIRATORY: No asthma. No sleep apnea. GASTROINTESTINAL: Denies any bright red blood per rectum. No diarrhea. No constipation. Has GERD. MUSCULOSKELETAL: Has lower back pain and joint pain. Has osteoarthritis of the knees. NEURO: No headaches. No seizure disorders. PSYCH: No depression. No suicidal ideation. RHEUMATOLOGIC: No lupus. No rheumatoid arthritis. HEMATOLOGIC: Denies any abnormal bleeding or bruising. Personal history of DVTs. On anticoagulant. His hypercoagulable disorder. SKIN: No rash. No skin cancer. PHYSICAL EXAM: VITALS: Reviewed CONSTITUTIONAL: Well developed and in no acute distress. EYES: Conjuctivae with sclera icterus. Extraocular movements grossly intact. HEAD, EARS, NOSE, THROAT: Moist buccal mucosa. Head is atraumatic, normocephalic. Hears conversational speech. No nasal drainage. NECK: Supple. No JV distention. No thyroidomegaly. RESPIRATORY: Non-labored respirations and equal bilateral excursions. No gross wheezes. CARDIOVASCULAR: Regular rate and rhythm. Extremities without moderate edema. Palpable 2+ radial pulses. ABDOMEN: Tender epigastrium. No peritonitis. LYMPH: No neck lymphadenopathy. MUSCULOSKELETAL: Nail and fingers with good capillary refill. SKIN: Warm and well perfused with good skin turgor. NEUROLOGIC: Cranial nerves II through XII grossly intact. Sensation upper and extremities intact. No focal or lateralizing signs. PSYCH: Appropriate affect. Alert and oriented to person, place and time. Displays appropriate insight. CLINCAL LABS: Reviewed. Total bilirubin elevated 1.8 including LFTs elevated over 200s at [place]. IMAGING: Independently reviewed ultrasound of the abdomen from 07/19/2021 demonstrated a cystic lesion along the gallbladder fossa. RADIOLOGY: Report reviewed ultrasound of the abdomen from 07/19/2021 demonstrated a common bile duct within normal limits. Cystic lesion less than 2 cm in gallbladder fossa identified. ASSESSMENT: 1. Retained gallstones as was cholecystectomy 2. Elevated LFTs 3. Splenomegaly PLAN: 1. I reviewed care plan with her including admission for ERCP following MRCP 2. Repeat chemistry 3. Low-fat clear liquid diet 4. Hold Xarelto for possible ERCP 5. GI consultation Past Medical History Past Medical History: Blood Disorder, Deep Vein Thrombosis (DVT), GERD/Reflux, Liver Disease Additional Past Medical History / Comment(s): Factor 5 Leiden Disorder, hx multiple DVT's, Fatty Liver, Migraines, hx [place] Palsy. History of Any Multi-Drug Resistant Organisms: None Reported Past Surgical History: Appendectomy, Bariatric Surgery, Breast Surgery, Section, Cholecystectomy, Orthopedic Surgery, Tubal Ligation Additional Past Surgical History / Comment(s): section X2, wisdom teeth removed, IVC filter placed and removed, sleeve gastrectomy 04-03-19, left knee surgery X2, tummy tuck, liposuction, breast implants. Past Anesthesia/Blood Transfusion Reactions: Motion Sickness, Postoperative Nausea & Vomiting (PONV) Additional Past Anesthesia/Blood Transfusion Reaction / Comment(s): Mom PONV. Past Psychological History: No Psychological Hx Reported Smoking Status: Former smoker Past Alcohol Use History: Occasional Past Drug Use History: None Reported - Past Family History Mother Family Medical History: Cancer, Diabetes Mellitus, Deep Vein Thrombosis (DVT), Thyroid Disorder Medications and Allergies Home Medications Medication Instructions Recorded Confirmed Type Rivaroxaban [Xarelto] 20 mg PO HS 04/14/19 07/09/21 History Montelukast Sodium [Singulair] 10 mg PO HS 06/09/21 07/09/21 History Spironolactone 25 mg PO HS 06/09/21 07/09/21 History Acetaminophen Tab [Tylenol Tab] 1,000 mg PO Q6HR PRN #30 tablet 07/07/21 07/09/21 Rx Simethicone [Gas-X] 125 mg PO AC-TID PRN #20 capsule 07/07/21 07/09/21 Rx Omeprazole [PriLOSEC] 40 mg PO DAILY #14 cap 07/17/21 Rx Acetaminophen-Codeine 300-30mg 1 tab PO Q6H PRN 3 Days #12 tablet 07/20/21 Rx [Tylenol w/codeine #3] Ondansetron Odt [Zofran Odt] 4 mg PO Q8HR PRN #10 tab 07/20/21 Rx Allergies Allergy/AdvReac Type Severity Reaction Status Date / Time No Known Allergies Allergy Verified 07/22/21 08:19 Surgical - Exam Vital Signs Temp Pulse Resp BP Pulse Ox 98.4 F 50 L 18 91/66 100 07/22/21 08:13 07/22/21 08:13 07/22/21 08:13 07/22/21 08:13 07/22/21 08:13 Assessment and Plan (1) Retained gallstones following laparoscopic cholecystectomy Current Visit: Yes Status: Acute Code(s): K91.86 - RETAINED CHOLELITHIASIS FOLLOWING CHOLECYSTECTOMY SNOMED Code(s): 754436681 (2) Splenomegaly Current Visit: Yes Status: Acute Code(s): R16.1 - SPLENOMEGALY, NOT ELSEWHERE CLASSIFIED SNOMED Code(s): 92438081 (3) Jaundice Current Visit: Yes Status: Acute Code(s): R17 - UNSPECIFIED JAUNDICE SNOMED Code(s): 40577681 (4) Elevated LFTs Current Visit: Yes Status: Acute Code(s): R79.89 - OTHER SPECIFIED ABNORMAL FINDINGS OF BLOOD CHEMISTRY SNOMED Code(s): 231041623 (5) Epigastric pain Current Visit: No Status: Acute Code(s): R10.13 - EPIGASTRIC PAIN SNOMED Code(s): 77096335 (6) Factor V deficiency Current Visit: No Status: Acute Priority: Medium Code(s): D68.2 - HEREDITARY DEFICIENCY OF OTHER CLOTTING FACTORS SNOMED Code(s): 8270776 (7) Hx of deep venous thrombosis Current Visit: No Status: Acute Code(s): Z86.718 - PERSONAL HISTORY OF OTHER VENOUS THROMBOSIS AND EMBOLISM SNOMED Code(s): 349250101 (8) S/P cholecystectomy Current Visit: No Status: Acute Code(s): Z90.49 - ACQUIRED ABSENCE OF OTHER SPECIFIED PARTS OF DIGESTIVE TRACT SNOMED Code(s): 036259271
[2021-07-22] MEDS: PANTOPRAZOLE 40 MG/10 ML VIAL IV SCH (09:03)
[2021-07-22 10:09] LABS: Basophils % (A) 1 %; Eosinophils # (A) 0.2 k/uL (0-0.7); Eosinophils % (A) 4 %; HCT 39.2 % (34.0-46.0); HGB 13.2 gm/dL (11.4-16.0); Lymphocytes # (A) 1.2 k/uL (1.0-4.8); Lymphocytes % (A) 26 %; MCH 31.5 pg (25.0-35.0); MCHC 33.7 g/dL (31.0-37.0); MCV 93.4 fL (80.0-100.0); Mean Platelet Volume 7.1; Monocytes # (A) 0.2 k/uL (0-1.0); Monocytes % (A) 4 %; Neutrophils % (A) 64 %; Platelet Count 170 k/uL (150-450); RBC 4.19 m/uL (3.80-5.40); RDW 12.6 % (11.5-15.5); WBC 4.7 k/uL (3.8-10.6)
[2021-07-22 10:31] LABS: ALT 204 U/L (4-34); AST 100 U/L (14-36); African American GFR (CKD) >90 (>60 ml/min/1.73 sqM); Albumin 3.2 g/dL (3.5-5.0); Alkaline Phosphatase 175 U/L (38-126); Anion Gap 4 mmol/L; Blood Urea Nitrogen 8 mg/dL (7-17); Calcium 8.7 mg/dL (8.4-10.2); Carbon Dioxide 27 mmol/L (22-30); Chloride 104 mmol/L (98-107); Glucose 76 mg/dL (74-99); Lipase 146 U/L (23-300); Non-African American GFR(CKD) >90 (>60 ml/min/1.73 sqM); Sodium 135 mmol/L (137-145); Total Bilirubin 1.4 mg/dL (0.2-1.3); Total Protein 6.1 g/dL (6.3-8.2)
--- NOTE | 2021-07-22 14:38 | P.CONS ---
History of Present Illness - Reason for Consult Consult date: 07/22/21 Of right upper quadrant pain, status post cholecystitis Requesting physician: Zeinab Myers - Chief Complaint Right upper quadrant pain, nausea vomiting - History of Present Illness This is a 36-year-old female who presented to the emergency department with complaints of worsening right upper quadrant and epigastric pain radiating into her back that began on Wednesday and progressively got worse. Patient underwent cholecystectomy on 07/07/[address] Myers for cholelithiasis. Patient initially went home and had no problems. However last week she started having discomfort and progressively got worse with associated nausea and vomiting. States she's not been able to eat much. She did have an ultrasound done on outpatient to 2021 that showed liver with a cystic lesion at the hilum/gallbladder fossa 1.4 x 1.4 x 1.3 cm gallbladder surgically absent and c ommon bile duct not well visualized. No sign of dilation of the intrahepatic bile ducts. Small cystic fluid collection in the right upper quadrant could be small seroma or hematoma at the gallbladder fossa. The patient is stating that the pain is intermittent nausea and vomiting are somewhat improved since being the hospital. The patient does take several of her factor V deficiency, last dose yesterday evening. Review of Systems REVIEW OF SYSTEMS: CARDIOPULMONARY: No chest pain or shortness of breath. Gastrointestinal: Epigastric, right upper quadrant pain radiating into her back. Nausea and vomiting. No hematemesis, coffee-ground emesis. No rectal bleed ing, or melena. GENITOURINARY: No dysuria or hematuria. MUSCULOSKELETAL: Reports normal range of motion., Joint pain. SKIN: No rashes. No jaundice. ENDOCRINE: No chills, fevers. No excessive weight gain or loss. No polydipsia or polyuria. PSYCHIATRIC: Unremarkable. NEUROLOGY: No change in mental status. Denies dizziness, headache. ENT: Vision unremarkable. CONSTITUTIONAL: No recent weight loss. No fever, chills, night sweats. Past Medical History Past Medical History: Blood Disorder, Deep Vein Thrombosis (DVT), GERD/Reflux, Liver Disease Additional Past Medical History / Comment(s): Factor 5 Leiden Disorder, hx multiple DVT's, Fatty Liver, Migraines, hx [place] Palsy. History of Any Multi-Drug Resistant Organisms: None Reported Past Surgical History: Appendectomy, Bariatric Surgery, Breast Surgery, Section, Cholecystectomy, Orthopedic Surgery, Tubal Ligation Additional Past Surgical History / Comment(s): section X2, wisdom teeth removed, IVC filter placed and removed, sleeve gastrectomy 04-03-19, left knee surgery X2, tummy tuck, liposuction, breast implants. Past Anesthesia/Blood Transfusion Reactions: Motion Sickness, Postoperative Nausea & Vomiting (PONV) Additional Past Anesthesia/Blood Transfusion Reaction / Comm: Mom PONV. Past Psychological History: No Psychological Hx Reported Smoking Status: Former smoker Past Alcohol Use History: Occasional Past Drug Use History: None Reported - Past Family History Mother Family Medical History: Cancer, Diabetes Mellitus, Deep Vein Thrombosis (DVT), Thyroid Disorder Medications and Allergies Home Medications Medication Instructions Recorded Confirmed Type Montelukast Sodium [Singulair] 10 mg PO HS 06/09/21 07/22/21 History Spironolactone 25 mg PO HS 06/09/21 07/22/21 History Acetaminophen Tab [Tylenol Tab] 1,000 mg PO Q6HR PRN #30 tablet 07/07/21 07/22/21 Rx Simethicone [Gas-X] 125 mg PO AC-TID PRN #20 capsule 07/07/21 07/22/21 Rx Omeprazole [PriLOSEC] 40 mg PO DAILY #14 cap 07/17/21 07/22/21 Rx Acetaminophen-Codeine 300-30mg 1 tab PO Q6H PRN 3 Days #12 tablet 07/20/21 07/22/21 Rx [Tylenol w/codeine #3] Ondansetron Odt [Zofran Odt] 4 mg PO Q8HR PRN #10 tab 07/20/21 07/22/21 Rx Rivaroxaban [Xarelto] 20 mg PO HS 07/22/21 07/22/21 History Allergies Allergy/AdvReac Type Severity Reaction Status Date / Time No Known Allergies Allergy Verified 07/22/21 08:58 Physical Exam Vitals: Vital Signs Temp Pulse Resp BP Pulse Ox 07/22/21 10:57 56 L 14 100/70 98 07/22/21 08:13 98.4 F 50 L 18 91/66 100 Intake and Output 07/21/21 07/22/21 07/22/21 22:59 06:59 14:59 Other: Weight 82.554 kg General appearance: The patient is alert, oriented, appears in no acute distress. HET: Head is normocephalic and atraumatic. Conjunctiva pink. Sclera anicteric. Neck: Supple without lymphadenopathy. Trachea midline. Heart: S1 S2. Regular rate and rhythm. Lungs: Clear to auscultation. Abdomen: Soft, right upper quadrant tenderness, nondistended with bowel sounds. No guarding or rigidity. Skin: No rashes. No jaundice. Extremities: Normal skin color and turgor. No pedal edema. Neurological: No focal deficits. Alert and oriented x3. Results CBC & Chem 7: 07/22/21 09:51 07/22/21 09:51 Labs: Abnormal Lab Results - Last 24 Hours (Table) 07/22/21 Range/Units 09:51 Sodium 135 L (137-145) mmol/L Total Bilirubin 1.4 H (0.2-1.3) mg/dL AST 100 H (14-36) U/L ALT 204 H (4-34) U/L Alkaline Phosphatase 175 H (38-126) U/L Total Protein 6.1 L (6.3-8.2) g/dL Albumin 3.2 L (3.5-5.0) g/dL Assessment and Plan (1) RUQ abdominal pain Narrative/Plan: 36-year-old female who presented to the emergency department with complaints of abdominal pain mostly in the right upper quadrant and epigastric region radiating to her back. Pain began last Wednesday and progressively got worse associated with nausea vomiting and decreased appetite. Patient is status post cholecystectomy on 07/07/[address] Henriquez for cholelithiasis. She has elevated LFTs with a total bilirubin of 1.4 AST 100 ALT 204 alkaline phosphatase 175. MRCP has been ordered. Possible etiologies include choledocholithiasis, will await MRCP. Hold Xarelto. Possible ERCP if evidence of choledocholithiasis on MRCP Current Visit: Yes Status: Acute Code(s): R10.11 - RIGHT UPPER QUADRANT PAIN SNOMED Code(s): 075016159 (2) Elevated LFTs Current Visit: Yes Status: Acute Code(s): R79.89 - OTHER SPECIFIED ABNORMAL FINDINGS OF BLOOD CHEMISTRY SNOMED Code(s): 566931063 (3) Epigastric pain Current Visit: No Status: Acute Code(s): R10.13 - EPIGASTRIC PAIN SNOMED Code(s): 79407068 (4) Factor V deficiency Current Visit: No Status: Acute Priority: Medium Code(s): D68.2 - HEREDITARY DEFICIENCY OF OTHER CLOTTING FACTORS SNOMED Code(s): 7260884 Plan: 1. Continue symptomatic and supportive care 2. Await MRCP 3. Repeat CBC, CMP tomorrow 4. Protonix 40 mg daily GI prophylaxis 5. Antiemetics as needed 6. Pain management per general surgery 7. Further recommendations forthcoming per MRCP results Thank you for this consultation, we will continue to follow. Dr. Kristi Lora I agree with the dictator's note, documented as a scribe by Karina Love.
--- NOTE | 2021-07-23 05:10 | P.PN ---
Progress Note - Text Progress Note Date: 07/22/21 Patient now transferred from the emergency room to the floor. MRI unavailable today. Per discussion with nursing, MRI scheduled for tomorrow morning. GI currently following. ERCP pending results of MRCP.
[2021-07-23] MEDS: PANTOPRAZOLE 40 MG/10 ML VIAL IV SCH ×2 (07:31→08:39)
[2021-07-23 08:21] LABS: ALT 150 U/L (4-34); AST 58 U/L (14-36); African American GFR (CKD) >90 (>60 ml/min/1.73 sqM); Albumin 3.2 g/dL (3.5-5.0); Albumin/Globulin Ratio 1.1; Alkaline Phosphatase 153 U/L (38-126); Anion Gap 3 mmol/L; Blood Urea Nitrogen 8 mg/dL (7-17); Calcium 8.9 mg/dL (8.4-10.2); Carbon Dioxide 29 mmol/L (22-30); Chloride 102 mmol/L (98-107); Globulin 2.8 g/dL; Glucose 75 mg/dL (74-99); Non-African American GFR(CKD) >90 (>60 ml/min/1.73 sqM); Potassium 3.9 mmol/L (3.5-5.1); Sodium 134 mmol/L (137-145); Total Bilirubin 1.3 mg/dL (0.2-1.3)
--- NOTE | 2021-07-23 11:57 | MR ---
EXAMINATION TYPE: MR MRCP DATE OF EXAM: 07/23/2021 COMPARISON: Ultrasound 07/20/2021 HISTORY: Chest pain that travels to her back with constant vomiting x7 days post cholecystectomy perf ormed 2 weeks ago Standard multiplanar, multisequence MRI departmental protocol Multiplanar, multisequence images of the MRCP were acquired without contrast. FINDINGS: This common bile duct and intrahepatic ducts appear to be of normal caliber however, appear to be 2 s mall filling defects in the distal CBD suspicious for CBD stones. Postsurgical change involving the breast noted. Fluid signal noted near the benedict hepatis. Although t his was reported to be a cystic area within the liver suspected lies within the gallbladder fossa. Sm all in size measuring 1.5 cm. No hydronephrosis. Adrenal glands normal morphology. Spleen homogeneous signal. Aorta of normal calib er.. IMPRESSION: 1. There are two small filling defects within the distal CBD suspicious for distal CBD stones. 2. 1.4 cm cystic area noted by ultrasound more likely represents a small fluid collection within the gallbladder fossa. Could be postoperative. Correlate clinically.
--- NOTE | 2021-07-23 12:24 | P.PN ---
Subjective Progress Note Date: 07/23/21 Principal diagnosis: Abdominal pain, elevated LFTs 36-year-old female who presented to the emergency department with right upper quadrant pain was found to have elevated LFTs. She is status post cholecystectomy for cholelithiasis approximately 2 weeks ago. She was seen outpatient by her general surgeon Dr. Myers with concerns for possible CBD stone. Patient underwent MRCP today that did show 2 small filling defects suspicious for CBD stones. Pain somewhat improved. Labs are improving as well. Total bilirubin 1.3 AST 58 ALT 150 alkaline phosphatase 153. Xarelto is currently on hold. Objective - Vital Signs Vital signs: Vital Signs Temp 97.7 F 07/23/21 07:00 Pulse 47 L 07/23/21 07:00 Resp 16 07/23/21 07:41 BP 98/63 07/23/21 07:00 Pulse Ox 100 07/23/21 07:00 Intake & Output 07/22/21 07/23/21 07/23/21 18:59 06:59 18:59 Weight 82.554 kg Other: # Voids 1 1 - Exam General appearance: The patient is alert, oriented, appears in no acute distress. HET: Head is normocephalic and atraumatic. Conjunctiva pink. Sclera anicteric. Neck: Supple without lymphadenopathy. Abdomen: Soft, right upper quadrant tenderness, nondistended with bowel sounds. No guarding or rigidity. Extremities: Normal skin color and turgor. No pedal edema Skin: No rashes, no jaundice Neurological: No focal deficits. Alert and oriented x3. - Labs CBC & Chem 7: 07/22/21 09:51 07/23/21 07:06 Labs: Abnormal Lab Results - Last 24 Hours (Table) 07/23/21 Range/Units 07:06 Sodium 134 L (137-145) mmol/L AST 58 H (14-36) U/L ALT 150 H (4-34) U/L Alkaline Phosphatase 153 H (38-126) U/L Total Protein 6.0 L (6.3-8.2) g/dL Albumin 3.2 L (3.5-5.0) g/dL Assessment and Plan (1) RUQ abdominal pain Narrative/Plan: 36-year-old female who presented to the emergency department with complaints of abdominal pain mostly in the right upper quadrant and epigastric region radiating to her back. Pain began last Wednesday and progressively got worse associated with nausea vomiting and decreased appetite. Patient is status post cholecystectomy on 07/07/[address] Henriquez for cholelithiasis. She has elevated LFTs with a total bilirubin of 1.4 AST 100 ALT 204 alkaline phosphatase 175. MRCP has been ordered. Possible etiologies include choledocholithiasis, will await MRCP. Hold Xarelto. Possible ERCP if evidence of choledocholithiasis on MRCP Current Visit: Yes Status: Acute Code(s): R10.11 - RIGHT UPPER QUADRANT PAIN SNOMED Code(s): 672200661 (2) Choledocholithiasis Narrative/Plan: She underwent MRCP today that shows 2 small filling defects suspicious for CBD stones. Patient is on several toe with her last dose being Wednesday evening. We'll plan on ERCP tomorrow. Current Visit: Yes Status: Acute Code(s): K80.50 - CALCULUS OF BILE DUCT W/O CHOLANGITIS OR CHOLECYST W/O OBST SNOMED Code(s): 364850752 (3) Elevated LFTs Current Visit: Yes Status: Acute Code(s): R79.89 - OTHER SPECIFIED ABNORMAL FINDINGS OF BLOOD CHEMISTRY SNOMED Code(s): 298674269 (4) Epigastric pain Current Visit: No Status: Acute Code(s): R10.13 - EPIGASTRIC PAIN SNOMED Code(s): 50620789 (5) Factor V deficiency Current Visit: No Status: Acute Priority: Medium Code(s): D68.2 - HEREDITARY DEFICIENCY OF OTHER CLOTTING FACTORS SNOMED Code(s): 8412226 Plan: 1. Continue symptomatic and supportive care 2. Low-fat diet, nothing by mouth after midnight 3. Repeat CMP tomorrow 4. Protonix 40 mg daily GI prophylaxis 5. Antiemetics as needed 6. Pain management per general surgery 7. I will plan on ERCP tomorrow Thank you for this consultation, we will continue to follow. Dr. Kristi Lora I agree with the dictator's note, documented as a scribe by Karina Love.
[2021-07-23] MEDS: HYDROmorphone 1 MG/ML 1 ML SYRINGE IVP PRN (20:35)
[2021-07-24] MEDS ORDERED: LACTATED RINGERS 1,000 ML IV SCH (10:05)
[2021-07-24 11:49] LABS: ALT 115 U/L (4-34); AST 38 U/L (14-36); African American GFR (CKD) >90 (>60 ml/min/1.73 sqM); Albumin 3.4 g/dL (3.5-5.0); Albumin/Globulin Ratio 1.1; Alkaline Phosphatase 148 U/L (38-126); Anion Gap 4 mmol/L; Blood Urea Nitrogen 9 mg/dL (7-17); Calcium 9.3 mg/dL (8.4-10.2); Carbon Dioxide 30 mmol/L (22-30); Chloride 103 mmol/L (98-107); Globulin 3.1 g/dL; Glucose 90 mg/dL (74-99); Non-African American GFR(CKD) >90 (>60 ml/min/1.73 sqM); Potassium 3.9 mmol/L (3.5-5.1); Sodium 137 mmol/L (137-145); Total Bilirubin 0.8 mg/dL (0.2-1.3); Total Protein 6.5 g/dL (6.3-8.2)
--- NOTE | 2021-07-24 12:12 | P.PN ---
Subjective Progress Note Date: 07/24/21 CHIEF COMPLAINT: Abdominal pain with elevated LFTs HISTORY OF PRESENT ILLNESS: The patient is a 36 year old female status post cholecystectomy for symptom and a gallstone 07/07/2021. She was transferred from [facility] due to elevated liver enzymes and questionable lesion of the hepatic fossa. She had MRCP yesterday. She also had yesterday and had abdominal pain during dinnertime. She is nothing by mouth today. Due to findings on MRCP, patient is scheduled for ERCP today. REVIEW OF ORGAN SYSTEMS: No fevers or chills. No shortness of breath. No chest pain. PHYSICAL EXAM: VITALS: Reviewed CONSTITUTIONAL: Well developed and in no acute distress. EYES: Conjuctivae without sclera icterus. Extraocular movements grossly intact. HEAD, EARS, NOSE, THROAT: Moist buccal mucosa. Head is atraumatic, normocephalic. Hears conversational speech. No nasal drainage. RESPIRATORY: Non-labored respirations and equal bilateral excursions. No gross wheezes. CARDIOVASCULAR: Palpable 2+ radial pulses. ABDOMEN: No peritonitis MUSCULOSKELETAL: No clubbing cyanosis SKIN: Warm and well perfused with good skin turgor. NEUROLOGIC: Cranial nerves II through XII grossly intact. No focal or lateralizing signs. PSYCH: Appropriate affect. Alert and oriented to person, place and time. Displays appropriate insight. CLINCAL LABS: Reviewed. Total bilirubin and LFTs trending downward. Total bilirubin normal. IMAGING: Independently reviewed MRCP demonstrating distal common bile duct stones resulting in cystic duct leak. RADIOLOGY: MRCP report demonstrates 2 distal, bile duct stones. ASSESSMENT: 1. Retained common bile duct stones following cholecystectomy PLAN: 1. ERCP is pending for stent and common bile duct stones Objective - Vital Signs Vital signs: Vital Signs Temp 97.4 F L 07/24/21 07:21 Pulse 58 L 07/24/21 08:07 Resp 17 07/24/21 07:21 BP 81/51 07/24/21 07:21 Pulse Ox 99 07/24/21 07:21 Intake & Output 07/23/21 07/24/21 07/24/21 18:59 06:59 18:59 Intake Total 236 Balance 236 Intake: Oral 236 Other: Voiding Method Toilet # Voids 3 2 - Labs CBC & Chem 7: 07/22/21 09:51 07/24/21 10:50 Labs: Abnormal Lab Results - Last 24 Hours (Table) 07/24/21 Range/Units 10:50 AST 38 H (14-36) U/L ALT 115 H (4-34) U/L Alkaline Phosphatase 148 H (38-126) U/L Albumin 3.4 L (3.5-5.0) g/dL Assessment and Plan (1) Retained gallstones following laparoscopic cholecystectomy Current Visit: Yes Status: Acute Code(s): K91.86 - RETAINED CHOLELITHIASIS FOLLOWING CHOLECYSTECTOMY SNOMED Code(s): 602636656 (2) Splenomegaly Current Visit: Yes Status: Acute Code(s): R16.1 - SPLENOMEGALY, NOT ELSEWH ERE CLASSIFIED SNOMED Code(s): 65565397 (3) Jaundice Current Visit: Yes Status: Acute Code(s): R17 - UNSPECIFIED JAUNDICE SNOMED Code(s): 05986177 (4) Elevated LFTs Current Visit: Yes Status: Acute Code(s): R79.89 - OTHER SPECIFIED ABNORMAL FINDINGS OF BLOOD CHEMISTRY SNOMED Code(s): 064585645 (5) Epigastric pain Current Visit: No Status: Acute Code(s): R10.13 - EPIGASTRIC PAIN SNOMED Code(s): 81328592 (6) Factor V deficiency Current Visit: No Status: Acute Priority: Medium Code(s): D68.2 - HEREDITARY DEFICIENCY OF OTHER CLOTTING FACTORS SNOMED Code(s): 1374561 (7) Hx of deep venous thrombosis Current Visit: No Status: Acute Code(s): Z86.718 - PERSONAL HISTORY OF OTHER VENOUS THROMBOSIS AND EMBOLISM SNOMED Code(s): 203823889 (8) S/P cholecystectomy Current Visit: No Status: Acute Code(s): Z90.49 - ACQUIRED ABSENCE OF OTHER SPECIFIED PARTS OF DIGESTIVE TRACT SNOMED Code(s): 948105233
[2021-07-24] MEDS ORDERED: LEVOFLOXACIN 500MG-D5W PMX 500 MG in DEXTROSE/WATER 1 100ML.BAG IVPB SCH (15:00)
[2021-07-24] MEDS ORDERED: INDOMETHACIN 50MG SUPPOSITORY RECTAL ONE (15:00)
--- NOTE | 2021-07-24 15:16 | P.PN ---
Subjective Progress Note Date: 07/23/21 CHIEF COMPLAINT: Abdominal pain with elevated LFTs HISTORY OF PRESENT ILLNESS: The patient is a 36 year old female status post cholecystectomy for symptom and a gallstone 07/07/2021. She was transferred from [facility] due to elevated liver enzymes and moderate to severe abdominal pain. Patient had an MRCP this morning. REVIEW OF ORGAN SYSTEMS: No fevers or chills. No shortness of breath. No chest pain. PHYSICAL EXAM: VITALS: Reviewed CONSTITUTIONAL: Well developed and in no acute distress. EYES: Conjuctivae without sclera icterus. Extraocular movements grossly intact. HEAD, EARS, NOSE, THROAT: Moist buccal mucosa. Head is atraumatic, normocephalic. Hears conversational speech. No nasal drainage. RESPIRATORY: Non-labored respirations and equal bilateral excursions. No gross wheezes. CARDIOVASCULAR: Palpable 2+ radial pulses. ABDOMEN: Mild tenderness epigastrium. MUSCULOSKELETAL: No clubbing cyanosis SKIN: Warm and well perfused with good skin turgor. NEUROLOGIC: Cranial nerves II through XII grossly intact. No focal or lateralizing signs. PSYCH: Appropriate affect. Alert and oriented to person, place and time. Displays appropriate insight. CLINCAL LABS: Reviewed. AST down 100-58. ALT down 204-150. Alkaline phosphatase trending downward. Total bilirubin trending downward. IMAGING: Independently reviewed MRCP with a blush along the hepatic fossa and common bile duct stones. ASSESSMENT: 1. Retained common bile duct stones following cholecystectomy PLAN: 1. Recommend ERCP. 2. GI following. Objective - Vital Signs Vital signs: Vital Signs Temp 98.3 F 07/24/21 13:17 Pulse 55 L 07/24/21 13:17 Resp 17 07/24/21 13:17 BP 94/62 07/24/21 13:17 Pulse Ox 99 07/24/21 13:17 Intake & Output 07/23/21 07/24/21 07/24/21 18:59 06:59 18:59 Intake Total 236 Balance 236 Intake: Oral 236 Other: Voiding Method Toilet # Voids 3 2 1 - Labs CBC & Chem 7: 07/22/21 09:51 07/24/21 10:50 Labs: Abnormal Lab Results - Last 24 Hours (Table) 07/24/21 Range/Units 10:50 AST 38 H (14-36) U/L ALT 115 H (4-34) U/L Alkaline Phosphatase 148 H (38-126) U/L Albumin 3.4 L (3.5-5.0) g/dL Assessment and Plan (1) Retained gallstones following laparoscopic cholecystectomy Current Visit: Yes Status: Acute Code(s): K91.86 - RETAINED CHOLELITHIASIS FOLLOWING CHOLECYSTECTOMY SNOMED Code(s): 677087487 (2) Splenomegaly Current Visit: Yes Status: Acute Code(s): R16.1 - SPLENOMEGALY, NOT ELSEWH ERE CLASSIFIED SNOMED Code(s): 25879816 (3) Jaundice Current Visit: Yes Status: Acute Code(s): R17 - UNSPECIFIED JAUNDICE SNOMED Code(s): 05318612 (4) Elevated LFTs Current Visit: Yes Status: Acute Code(s): R79.89 - OTHER SPECIFIED ABNORMAL FINDINGS OF BLOOD CHEMISTRY SNOMED Code(s): 863833129 (5) Epigastric pain Current Visit: No Status: Acute Code(s): R10.13 - EPIGASTRIC PAIN SNOMED Code(s): 79603793 (6) Factor V deficiency Current Visit: No Status: Acute Priority: Medium Code(s): D68.2 - HEREDITARY DEFICIENCY OF OTHER CLOTTING FACTORS SNOMED Code(s): 5298113 (7) Hx of deep venous thrombosis Current Visit: No Status: Acute Code(s): Z86.718 - PERSONAL HISTORY OF OTHER VENOUS THROMBOSIS AND EMBOLISM SNOMED Code(s): 724590093 (8) S/P cholecystectomy Current Visit: No Status: Acute Code(s): Z90.49 - ACQUIRED ABSENCE OF OTHER SPECIFIED PARTS OF DIGESTIVE TRACT SNOMED Code(s): 867664275
[2021-07-24] MEDS ORDERED: GLYCOPYRROLATE 0.2 MG/ML 2 ML VIAL ONE (16:48)
[2021-07-24] MEDS ORDERED: PROPOFOL 10 MG/ML 20 ML VIAL IV ONE (16:48)
[2021-07-24] MEDS ORDERED: LIDOCAINE 1% INJ 10MG/ML (20 ML MDV) ONE (16:48)
[2021-07-24] MEDS ORDERED: IOPAMIDOL-300 50ML BTL INJ ONE (17:11)
--- NOTE | 2021-07-24 17:14 | P.PCN ---
Date of Procedure: 07/24/21 Procedure(s) Performed: Brief history: Patient is a 36 year-old pleasant lady scheduled for an ERCP as part of evaluation of abdominal pain and elevated serum transaminases for the last 2 days' duration. She underwent gallbladder surgery in 2 weeks ago for symptomatically gallstones. She presents to the emergency room with severe epigastric pain and was noted to have elevated LFTs and mild elevation of bili at 1.9. MRCP done revealed 2 small distal common bile duct stones. Procedure performed: ERCP with biliary sphincterotomy and balloon stone extraction Preoperative diagnoses: Epigastric pain/elevated LFTs and mild jaundice. MRCP revealed 2 small CBD stones IV sedation per anesthesia: Procedure: After informed consent was obtained from the patient and after the risks benefits and complications including bleeding perforation and pancreatitis explained in detail the patient was brought into the endoscopy unit. The patient was placed in prone position and IV conscious sedation was administered by anesthesia under continuous monitoring. The Olympus side-viewing duodenoscope was then inserted into the mouth and esophagus intubated without any difficulty. The scope was gradually advanced into the stomach and duodenum. The major papilla was identified without any difficulty. Initial cannulation resulted in opacification of the pancreatic duct that appeared normal. Subsequent cannulation resulted in opacification of the common bile duct was slightly dilated measuring 8 mm in diameter. There was no intrahepatic biliary dilation seen. In the distal common bile duct there were 2 small filling defects noted measuring about 3-4 mm in size. At this time the catheter was exchanged over a guidewire with a biliary sphincterotome and a stent enterotomy was performed at 12 o'clock position and was extended to 1 cm. Following this a 1 cm balloon catheter was passed over the guidewire into the proximal CBD, gently inflated and withdrawn and 2 stones were seen exiting the ampulla , each measuring about 3-4 mm in diameter. Repeat occlusion cholangio-Kvng was performed no other filling defects were seen. The patient tolerated the procedure well. Impression: Slightly dilated common bile duct measuring 8 mm in diameter with 2 small filling defects status post sphincterotomy and balloon stone extraction as described above Normal-appearing pancreatic duct Recommendations: The findings of this examination were discussed with the patient . She'll be started on a clear liquid diet. Repeat labs in the morning. 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
[2021-07-24] MEDS ORDERED: IV FLUID CONTINUATION 1,000 ML IV ONE (17:15)
[2021-07-24] MEDS: HYDROmorphone 1 MG/ML 1 ML SYRINGE IVP PRN (17:36)
[2021-07-25] MEDS: HYDROmorphone 1 MG/ML 1 ML SYRINGE IVP PRN (01:15)
[2021-07-25 07:23] VITALS: BP 86/56; RESP 17; TEMP 98.5
[2021-07-25 07:23] LABS: ALT 87 U/L (4-34); AST 30 U/L (14-36); African American GFR (CKD) >90 (>60 ml/min/1.73 sqM); Albumin 3.3 g/dL (3.5-5.0); Albumin/Globulin Ratio 1.1; Alkaline Phosphatase 125 U/L (38-126); Anion Gap 4 mmol/L; Blood Urea Nitrogen 8 mg/dL (7-17); Calcium 9.4 mg/dL (8.4-10.2); Carbon Dioxide 29 mmol/L (22-30); Chloride 103 mmol/L (98-107); Glucose 91 mg/dL (74-99); Non-African American GFR(CKD) 84 (>60 ml/min/1.73 sqM); Potassium 4.2 mmol/L (3.5-5.1); Sodium 136 mmol/L (137-145); Total Bilirubin 0.9 mg/dL (0.2-1.3); Total Protein 6.3 g/dL (6.3-8.2)
--- NOTE | 2021-07-25 07:27 | FL ---
Fluoroscopy History: ERCP ERCP. 1 image sent. 19 sec fl.
[2021-07-25] MEDS: PANTOPRAZOLE 40 MG/10 ML VIAL IV SCH (09:43)
[2021-07-25 13:29] VITALS: PULSE 54
--- NOTE | 2021-07-25 14:11 | P.DS ---
Providers Date of admission: 07/24/21 09:30 Expected date of discharge: 07/25/21 Attending physician: Zeinab Myers Consults: 07/22/21 08:46 Consult Physician Urgent Consulting Provider: Emely Lora Consult Reason/Comments: RUQ/epigastric pain following Cholecystectomy, elevated liver enzymes Do you want consulting provider notified?: Yes Primary care physician: Anay Del Real Hospital Course: Discharge diagnosis 1. Retained common bile duct stones following cholecystectomy Hospital course The patient is a 36 year old female status post cholecystectomy for symptom and a gallstone 07/07/2021. She was transferred from [facility] due to elevated liver enzymes and questionable lesion of the hepatic fossa. She had MRCP with 2 small filling defects within the distal common bile duct suspicious for distal CBD stones.due to these findings patient underwent ERCP with Dr. Lora. Patient status post ERCP with biliary sphincterotomy and balloon stone extraction. patient tolerated procedure well. She denies any abdominal pain. Denies any nausea or vomiting. Tolerated diet. Her LFTs are trending down. Patient is afebrile. She's up and ambulating. She is tolerating diet. She has been cleared by GI service for discharge.She is stable for discharge. Physician Assessment Technician note has been reviewed by physician. Signing provider agrees with the documented findings, assessment, and plan of care. Patient Condition at Discharge: Stable Plan - Discharge Summary Discharge Rx Participant: No New Discharge Prescriptions: Continue Montelukast Sodium [Singulair] 10 mg PO HS Omeprazole [PriLOSEC] 40 mg PO DAILY #14 cap Spironolactone 25 mg PO HS Acetaminophen Tab [Tylenol] 1,000 mg PO Q6HR PRN #30 tablet PRN Reason: Pain Ondansetron Odt [Zofran ODT] 4 mg PO Q8HR PRN #10 tab PRN Reason: Nausea Rivaroxaban [Xarelto] 20 mg PO HS Discontinued Simethicone [Gas-X] 125 mg PO AC-TID PRN #20 capsule PRN Reason: Pain Acetaminophen-Codeine 300-30mg [Tylenol w/codeine #3] 1 tab PO Q6H PRN 3 Days #12 tablet PRN Reason: Pain Discharge Medication List Montelukast Sodium [Singulair] 10 mg PO HS 06/09/21 [History] Spironolactone 25 mg PO HS 06/09/21 [History] Acetaminophen Tab [Tylenol] 1,000 mg PO Q6HR PRN #30 tablet 07/07/21 [Rx] Omeprazole [PriLOSEC] 40 mg PO DAILY #14 cap 07/17/21 [Rx] Ondansetron Odt [Zofran ODT] 4 mg PO Q8HR PRN #10 tab 07/20/21 [Rx] Rivaroxaban [Xarelto] 20 mg PO HS 07/22/21 [History] Follow up Appointment(s)/Referral(s): Anay Del Real MD [Primary Care Provider] - 1-2 days Emely Lora MD [STAFF PHYSICIAN] - As Needed [place], [place] [NON-STAFF] - 08/06/21 Ambulatory/Diagnostic Orders: Comprehensive Metabolic Panel [LAB.AMB] Location: None Selected Patient Instructions/Handouts: ERCP (Endoscopic Retrograde Cholangiopancreatography) (DC) Activity/Diet/Wound Care/Special Instructions: Resume blood thinner Wednesday, Jul 27 Recommend low-fat diet for the next 2 days. No lifting over 10 pounds in 2 weeks until August 07. September shower. No bath tub soaks for two weeks until August 07. Diet as tolerated. Use Tylenol, simethicone and ibuprofen or Aleve scheduled for the next 24-48 hours for best pain relief. Use ice along incisions for today to prevent swelling. Discharge Disposition: HOME SELF-CARE
== END 2021-07-25 10:12 | disposition home or self-care (01) ==
LOC: EC 08:03 → 6NMEDSUR 09:33 → OBSVTOIN 07-24 09:30 → INTOOBSV 07-24 09:30 → UNDODISIN 07-25 10:12
PROVIDERS: ADMIT Surgery Plastic and Reconstructive Surgery; ATTEND Surgery Plastic and Reconstructive Surgery
PROC: 0FC98ZZ Extirpation of Matter from Common Bile Duct, Via Natural or Artificial Opening Endoscopic (ICD-10-PCS; principal; 2021-07-24 16:15)
DX: K80.70 Calculus of gallbladder and bile duct without cholecystitis without obstruction (principal); D68.51 Activated protein C resistance; K80.30 Calculus of bile duct with cholangitis, unspecified, without obstruction; D68.2 Hereditary deficiency of other clotting factors; Z68.42 Body mass index [BMI] 45.0-49.9, adult; E66.01 Morbid (severe) obesity due to excess calories; I11.9 Hypertensive heart disease without heart failure; Z20.822 Contact with and (suspected) exposure to COVID-19; K76.0 Fatty (change of) liver, not elsewhere classified; M17.0 Bilateral primary osteoarthritis of knee; E55.9 Vitamin D deficiency, unspecified; Z98.51 Tubal ligation status; Z79.899 Other long term (current) drug therapy; Z79.01 Long term (current) use of anticoagulants; Z86.718 Personal history of other venous thrombosis and embolism; Z87.891 Personal history of nicotine dependence; Z90.49 Acquired absence of other specified parts of digestive tract; Z98.82 Breast implant status; Z98.84 Bariatric surgery status; Z95.828 Presence of other vascular implants and grafts; Z83.3 Family history of diabetes mellitus; Z80.9 Family history of malignant neoplasm, unspecified; Z82.49 Family history of ischemic heart disease and other diseases of the circulatory system; Z83.49 Family history of other endocrine, nutritional and metabolic diseases
CPT/HCPCS: 43262; 43264; 99285; 96376; 96374; 96375; 80053 ×4; 83690; 85025; 81025; 87635; 74330; 74181; G0378 ×4; J2405; J1956; J2001; J3010; J1170 ×4; J2704; C9113 ×2; Q9967; 96361

== ENCOUNTER → 2023-03-11 | Outpatient (CLI) | payer BC ==
[2023-03-11 08:27] LABS: INR 0.9 (<1.2); Partial Thromboplastin Time 23.7 sec (22.0-30.0); Prothrombin Time 9.9 sec (9.0-12.0)
[2023-03-11 11:12] LABS: HCT 43.4 % (37.2-46.3); HGB 13.8 d/dL (12.0-15.0); MCH 29.6 pg (27.0-32.0); MCHC 31.8 d/dL (32.0-37.0); MCV 93.1 FL (80.0-97.0); Mean Platelet Volume 9.9 FL (9.5-12.2); NRBC Per 100 WBC 0 X 10*3/uL (0.00-0.01); Platelet Count 169 X 10*3/uL (140-440); RBC 4.66 X 10*6/uL (4.10-5.20); RDW 12.8 % (11.5-14.5); WBC 4.42 X 10*3/uL (4.50-10.00)
[2023-03-11 11:32] LABS: Prealbumin 18.5 mg/dL (18.0-42.0)
[2023-03-11 12:01] LABS: % Iron Saturation 24.19 (12.00-45.00); ALT 19 U/L (8-44); AST 22 U/L (13-35); Albumin 3.9 d/dL (3.8-4.9); Alkaline Phosphatase 42 U/L (41-126); BUN/Creat Ratio 13.38 Ratio (12.00-20.00); Blood Urea Nitrogen 10.7 mg/dL (9.0-27.0); Calcium 9.2 mg/dL (8.7-10.3); Carbon Dioxide 25.8 mmol/L (21.6-31.8); Chloride 105 mmol/L (96-109); Chol/HDL Ratio 2.68 Ratio; Ferritin 74.5 ng/mL (10.0-291.0); Globulin 2.3 d/dL (1.6-3.3); Glucose 89 mg/dL (70-110); Iron 82 UG/DL (50-170); LDL Cholesterol,Calculated 80.4 mg/dL (0.0-131.0); Phosphorus 3.6 mg/dL (2.4-5.1); Potassium 4.3 mmol/L (3.5-5.5); Sodium 142 mmol/L (135-145); Total Bilirubin 0.5 mg/dL (0.3-1.2); Total Iron Binding Capacity 339 UG/DL (228-460); Total Protein 6.2 d/dL (6.2-8.2)
[2023-03-12 09:44] LABS: Zinc, Serum 74 ug/dL (60-130)
== END | disposition home or self-care (01) ==
LOC: LABWHC1 07:26
PROVIDERS: ATTEND Surgery Plastic and Reconstructive Surgery
DX: E66.01 Morbid (severe) obesity due to excess calories (principal); E89.1 Postprocedural hypoinsulinemia; D50.8 Other iron deficiency anemias; E44.0 Moderate protein-calorie malnutrition; E55.9 Vitamin D deficiency, unspecified; K74.1 Hepatic sclerosis; N19 Unspecified kidney failure; K50.90 Crohn's disease, unspecified, without complications; K91.2 Postsurgical malabsorption, not elsewhere classified; E44.1 Mild protein-calorie malnutrition; E45 Retarded development following protein-calorie malnutrition; E46 Unspecified protein-calorie malnutrition; T56.894A Toxic effect of other metals, undetermined, initial encounter
CPT/HCPCS: 36415; 80053; 80061; 82306; 82525; 82607; 82728; 82746; 83036; 83540; 83550; 83735; 83970; 84100; 84134; 84255; 84425; 84443; 84590; 84630; 85027; 85610; 85730

== ENCOUNTER → 2023-03-24 | Outpatient (CLI) | payer BC ==
[2023-03-24 15:14] VITALS: BP 93/67; PULSE 93; TEMP 98.1; BMI 37.0
--- NOTE | 2023-03-24 15:43 | P.BASOAP ---
Subjective Progress Note Date: 03/24/23 She was on antidepressant and gained 50 pounds. She now has stopped her medication. Blood pressure is low. Labs reviewed. TSH elevated. 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 223 pounds. 40 oz x 3 to 4 daily. No food journal. FOod journal. She is on wegovy off for 3 weeks. 6 months and lost 20.6 pounds. Objective - Vital Signs Vital signs: Vital Signs Temp 98.1 F 03/24/23 15:05 Pulse 93 03/24/23 15:05 Resp BP 93/67 03/24/23 15:05 Pulse Ox FiO2 Intake & Output 03/23/23 03/24/23 03/24/23 18:59 06:59 18:59 Weight 101.151 kg Assessment/Plan Plan: Date: 03/24/23 Initial Weight: 133.81 kg Initial BMI: 49.1 Current Weight: 101.151 kg Current BMI: 37.0 Type of Surgery: Total Volume in Band: Previous Volume: Volume Removed: Volume Added: Band Size:
== END ==
LOC: BARWHC3 14:25
PROVIDERS: ATTEND Surgery Plastic and Reconstructive Surgery
DX: Z53.9 Procedure and treatment not carried out, unspecified reason (principal)
CPT/HCPCS: 99211

== ENCOUNTER → 2023-09-30 | Outpatient (CLI) | payer BC ==
--- NOTE | 2023-09-30 15:15 | XR ---
EXAMINATION TYPE: XR chest 2V DATE OF EXAM: 09/30/2023 COMPARISON: 10-21 HISTORY: TB check preemployment TECHNIQUE: 2 view chest FINDINGS: Heart size is normal. Pulmonary vasculature is normal. Lungs are clear. IMPRESSION: 1. No acute pulmonary process.
== END | disposition home or self-care (01) ==
LOC: RADXRMAIN 14:57
PROVIDERS: ATTEND Family Medicine
DX: Z11.1 Encounter for screening for respiratory tuberculosis (principal)
CPT/HCPCS: 71046